=== PATIENT | female | born 1955 | race Caucasian/White ===

== ENCOUNTER 2022-11-10 18:44 | Outpatient (CLI) | payer MEDICARE, BC, SELFPAY | END 2022-11-10 18:45 | disposition home or self-care (01) | LOC: NFLDUCREF 11-12 11:20 | PROVIDERS: Visit Provider Nurse Practitioner Family | DX: R30.0 Dysuria (principal); N39.0 Urinary tract infection, site not specified | CPT/HCPCS: 87086; 87186 ==

== ENCOUNTER 2024-03-21 20:00 | Emergency (ER) | payer MEDICARE, BC, SELFPAY ==
[2024-03-21 20:09] VITALS: BP 166/81; PULSE 73; RESP 18; O2SAT 96; BMI 28.7
[2024-03-21 20:21] VITALS: TEMP 36.6
--- NOTE | 2024-03-21 20:29 | ED_ITS ---
HPI - General Adult General Chief complaint: Extremity Pain/Injury, Lower Stated complaint: Hip pain, nauseous throughout day Time Seen by Provider: 03/21/24 20:10 History of Present Illness HPI narrative: Here for an evaluation of chronic pain in her right leg. Started prednisone and albuterol for cancer that has spread to her left lung - started this 2- 3 weeks ago. Is wondering if these medications are causing an increase in pain in her leg . Increase in flair up of pain tonight, hard to bear weight. Has rheumatoid arthritis. 69-year-old woman presenting to the emergency department with concern right hip/leg pain. Pain is chronic in nature in her hips and low back however has flared more recently and particularly tonight. She has decreased her use of albuterol wondering if that might be related. Albuterol before for her allergic. She is wondering if that may have been contributing to spasms after researching this. She uses this regularly about 4 times a day 2 puffs; not taken for shortness of breath specifically. 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 Has received radiation here. Both legs were spasming but the left now less so which might correlate she thinks to using less albuterol. Left leg is still a problem. No trauma. No known metastatic disease to her bony pelvis or spine. Pain will spasm sometimes go down her buttock down the back of her thigh and feel it even in her toes. No rash. No fever. Denies a history of electrolyte instability. Does not take an NSAID lungs inner regularly dosed hydrochloroquine and then leflunomide for rheumatoid. Denies constipation or urinary retention. Related Data Home Medications ?Medication ?Instructions ?Recorded ?Confirmed atorvastatin 10 mg tablet 10 mg PO 11/10/22 03/14/23 hydrochlorothiazide 25 mg tablet 25 mg PO 11/10/22 03/14/23 hydroxychloroquine 200 mg tablet tab PO 11/10/22 03/14/23 leflunomide 10 mg tablet 10 mg PO 11/10/22 03/14/23 albuterol sulfate 90 mcg/actuation inhalation 03/21/24 aerosol inhaler (Ventolin HFA) Previous Rx's ?Medication ?Instructions ?Recorded cephalexin 500 mg capsule 500 mg PO BID #14 caps 03/14/23 Allergies Allergy/AdvReac Type Severity Reaction Status Date / Time No Known Drug Allergies Allergy Verified 03/21/24 20:17 Review of Systems Status of ROS: Reports: 6 or more systems reviewed and unremarkable except as noted in History and below [facility] Social History Smoking Status: Former smoker Exam Narrative: Exam Narrative: Very pleasant. Easily talkative. Breathing easily. Heart with trace systolic murmur loudest at the left sternal border. Abdomen is soft and nontender. Little overweight. Has no pain to palpation about the iliac crests or suprapubic area. No pain to palpation about the greater trochanter or femurs. She has trace pretibial pitting edema bilaterally. Well-perfused in her extremities. 2+ patellar reflex on the right and 1 on the left. No reproducible pain or deformity palpation of the spine no SI joint area pain. No piriformis area pain though she notes that she has hurt in that area on the right side before. No rashes apparent no swelling. Const: Vital Signs, click to edit/add: Vital Signs - 24 hr 03/21/24 20:09 03/21/24 20:21 Temperature 98 F Pulse Rate [Right Pulse Oximeter] 73 Respiratory Rate 18 Blood Pressure [Ri ght Upper Arm] 166/81 H Pulse Oximetry 96 Oxygen Delivery Me thod Room Air Documenting provider has reviewed patient's vital signs: yes Course Vital Signs Vital signs: Initial Vital Signs Pulse Rate 73 03/21/24 20:09 Pulse Rhythm Regular 03/21/24 20:09 Respiratory Rate 18 03/21/24 20:09 Blood Pressure 166/81 H 03/21/24 20:09 Blood Pressure Mean 109 H 03/21/24 20:09 Blood Pressure Position Sitting 03/21/24 20:09 Pulse Oximetry 96 03/21/24 20:09 Oxygen Delivery Method Room Air 03/21/24 20:09 Vital Signs Pulse Rate 73 03/21/24 20:09 Respiratory Rate 18 03/21/24 20:09 Blood Pressure 166/81 H 03/21/24 20:09 Pulse Oximetry 96 03/21/24 20:09 Oxygen Delivery Method Room Air 03/21/24 20:09 Temperature 98 F 03/21/24 20:21 Pulse Rate 73 03/21/24 20:09 Respiratory Rate 18 03/21/24 20:09 Blood Pressure 166/81 H 03/21/24 20:09 Pulse Oximetry 96 03/21/24 20:09 Oxygen Delivery Method Room Air 03/21/24 20:09 Medical Decision Making MDM Narrative Medical decision making narrative: I suppose this could be albuterol since she would note this correlation temporally. Discussed potential effect on electrolytes are glucose. She does take medications that might have hyponatremia though has been taking these for a long time. One also has concerns of course about metastatic disease and impingement somewhere other inflammatory reaction resulting in this muscle spasm. Kylee is clear that she feels she knows when something like that is an issue and does not feel like there would be any occult fracture or impingement. Her preference is to try to simply treat her discomfort as she has very close follow-up in regular monitoring including an upcoming total body scan. When she is aware of the differential and more significant concerns that we might have. We will try to treat her discomfort as requested. Discussed various options of medications and due to concerns and personal experiences with other family members we have finally settled on a cyclobenzaprine trial. Has an letterpress printing machinist that she might consult with as well. See patient discharge plan for further discussions. Discharge Plan Discharge Clinical Impression: Muscle spasm Patient Disposition: Home w/ Parent or Adult Condition: Improved Additional Instructions: Stay well-hydrated. I am that you have close follow-up. You might need to back off your albuterol and see if that makes a difference here. If not Flexeril/cyclobenzaprine is also available to you. Flexeril can be combined with any the medications that you are currently taking. Please follow-up with your primary care providers as scheduled. I still have concerns about some of the differential we discussed but you are quite familiar with yourself and your symptoms and I trust you to be paying close attention. Cyclobenzaprine from [facility]. It might be good to make a appointment with your care team or your primary care provider in short order particularly if you find this medication very helpful and just need a refill. Prescriptions: No Action hydroxychloroquine 200 mg tablet PO hydrochlorothiazide 25 mg tablet 25 mg PO atorvastatin 10 mg tablet 10 mg PO leflunomide 10 mg tablet 10 mg PO cephalexin 500 mg capsule 500 mg PO BID Qty: 14 0RF albuterol sulfate [Ventolin HFA] 90 mcg/actuation HFA aerosol inhaler inhalation Follow Up/Referrals: Margarita Cavazos [employer] [Nurse Practitioner] - Stand Alone Forms: [employer] Info Instructions
--- OUTSIDE RECORDS SUMMARY | 2024-03-21 21:19 | XMS_ITS | Clinical Summary ---
Author Organization [facility] Address [address] [place] [address] Care Team Providers Care Structural Designer Name Role Phone Sonia Schneider P.A.-C. Primary Care Provider Source Comments Patient records contain information from all sites at [facility]. For routine questions regarding patient records, call [phone] during business hours, M-F 8:00 AM - 5:00 PM Central Time. Record requests for emergency care only can be directed to [phone] at any time.[facility] Allergies No known active allergies Medications Medication Sig Dispensed Refills Start Date End Date Status polyvinyl alcohol (NU-TEARS) 1.4 % ophthalmic solution Administer 1 drop into both eyes 4 (four) times a day as needed for dry eyes. Active loratadine (CLARITIN) 10 mg tablet Take 10 mg by mouth daily as needed for allergies. Active multivitamin capsule Take 1 capsule by mouth daily. Active CHOLECALCIFEROL, VITAMIN D3, ORAL Take 3,000 Units by mouth daily. Active cranberry fruit extract (CRANBERRY CONCENTRATE ORAL) Take 2 tablets by mouth daily. Active acetaminophen (TYLENOL) 500 mg tablet Take 2 tablets (1,000 mg total) by mouth every 6 (six) hours as needed for pain. 01/23/2023 Active ibuprofen (ADVIL,MOTRIN) 200 mg tablet Take 2 tablets (400 mg total) by mouth every 6 (six) hours as needed for pain. 01/23/2023 Active oxyCODONE (ROXICODONE) 5 mg immediate release tabletIndications:Ac j carlos Pain Take 1 tablet (5 mg total) by mouth every 4 (four) hours as needed for severe pain or score 7-10 of 10 (not relieved by acetaminophen and ibuprofen) Indication: Acute Pain. 10 tablet 01/23/2023 Active Additional Information Patient not taking.Reported on 10/26/2023 sennosides-docusate sodium (SENOKOT-S) 8.6-50 mg per tablet Take 1 tablet by mouth at bedtime as needed for constipation. 01/23/2023 Active Additional Information Patient not taking.Reported on 01/25/2024 ondansetron ODT (ZOFRAN-ODT) 4 mg disintegrating tablet Dissolve 1 tablet (4 mg total) in the mouth every 6 (six) hours as needed for nausea or vomiting. 10 tablet 02/01/2023 Active Additional Information Patient not taking.Reported on 10/26/2023 hydroxychloroquine (PLAQUENIL) 200 mg tabletIndications:Ar thritis Rheumatoid (HCC) Take 1 tablet (200 mg total) by mouth 2 (two) times a day. 180 tablet 3 06/22/2023 Active omega-3 fatty acids-fish oil 300-1,000 mg per capsule Take 2 g by mouth daily. Active aspirin [address] tablet Take 81 mg by mouth daily. Active co-enzyme Q-10 30 mg capsule Take 30 mg by mouth daily. Active B complex-vitamins (BALANCE B-50) tablet Take 1 tablet by mouth daily. Active L.acidoph-L.bulg-B.b if-S.therm (BACID) 1 billion cell- 250 mg per tablet Take 1 tablet by mouth daily as needed. Active leflunomide (ARAVA) 10 mg tabletIndications:Ar thritis Rheumatoid (HCC) take one tablet by mouth every day 90 tablet 1 12/14/2023 Active atorvastatin (LIPITOR) 10 mg tabletIndications:Hy percholesterolemia TAKE ONE TABLET (10 MG TOTAL) BY MOUTH ONCE DAILY 90 tablet 3 12/30/2023 Active hydroCHLOROthiazide (HYDRODIURIL) 25 mg tabletIndications:Hy pertension And Chronic Kidney Disease Stage 2 Take 0.5 tablets (12.5 mg total) by mouth daily. 90 tablet 3 01/11/2024 Active predniSONE (DELTASONE) 5 mg tabletIndications:Ar thritis Rheumatoid (HCC) Take 20mg (4 tabs) orally x 3days, then 15mg (3 tabs) orally x3 days, then 10mg (2 tabs) orally x3 days, then 1 tab x3 days, then stop 30 tablet 1 02/01/2024 Active albuterol 90 mcg/actuation inhalerIndications:M alignant Neoplasm Of Ovary Laterality Unknown (HCC),Secondary Malignant Neoplasm Lung Left (HCC) Inhale 2 puffs every 4 (four) hours as needed for shortness of breath. 8 g 11 02/19/2024 Active Active Problems Problem Noted Date Diagnosed Date Osteoporosis 03/18/2024 Overview: DEXA of radius February 2024. Hyperparathyroidism Primary 01/23/2024 Overview: Endocrinology consult in 2008. Parathyroid adenoma diagnosed on parathyroid sestamibi scan. Hypercalcemia 01/19/2024 Malignant Neoplasm Of Ovary Laterality Unknown 0 07/09/2023 Obstruction Intestinal 01/29/2023 Lesion Vagina 12/17/2022 Overview: Added automatically from request for surgery [id number] Incontinence Urinary Stress Female 11/06/2022 Overview: Wears pads daily. Secondary Malignant Neoplasm Lung Left Overview: Added automatically from request for surgery [id number] Obesity Body Mass Index 30-39.9 Adult 02/06/2022 Tumor Kidney Not Pelvis Benign Right 05/11/2020 Overview: MEST tumor resection in 2019 via laparoscopic right partial nephrectomy. Hypertension And Chronic Kidney Disease Stage 2 07/15/2017 Stroke Cerebrovascular Accident Personal History 05/29/2015 Overview: Postoperative stroke in 2008. Fibromyalgia 03/09/2014 Overview: Stable. She will continue with foster care social worker and acupuncture. 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 Annual eye exam at [facility]. Resolved Problems Problem Noted Date Diagnosed Date Resolved Date Myelodysplastic Syndrome 12/16/202204/2023 Bone Marrow Transplant Failure 01/28/2022 02/06/2022 Mass Kidney 09/13/2019 05/11/2020 Overview: Added automatically from request for surgery [id number] Thrombocytopenia 06/06/2019 10/25/2019 Fatigue 06/06/2019 10/25/2019 Edema Lower Extremity 06/06/20192019 Ileus 12/01/2018 10/25/2019 Nausea And Vomiting 11/29/2018 10/25/19 20 Post Operative Nausea/Vomiting 11/29/2018 10/25/2019 Hypertension 04/01/2011 10/14/2018 Overview: Hypertension Malignant Neoplasm Of Ovary Laterality Unknown 04/01/2011 11/24/2022 Overview: Cancer of ovary left Neutropenia Drug Induced 01/18/2009 Encounters Date Type Department Care Team Description 03/10/2024 1:12 PM CDT - 03/10/2024 11:59 PM CDT Hospital Encounter Department of Radiology in [address] [phone] Sonia Schneider, MannieA.-C. Hyperparathyroidism Primary (HCC) Discharge Disposition: Home or Self Care 03/10/2024 1:10 PM CDT - 03/10/2024 1:11 PM CDT Hospital Encounter Department of Radiology in [place], [place] [address] [place] [phone] Sonia Schneider, P.A.-C. Hyperparathyroidism Primary (HCC) Discharge Disposition: Home or Self Care 02/19/2024 Clinical Communication Department of Radiation Oncology in [address] [phone] Julienne Bird APRN, C.N.P., D.N.P. 02/19/2024 Orders Only Department of Radiation Oncology in [place], [place] [address] [place] [phone] Julienne Bird APRN, C.N.P., D.N.P. Secondary Malignant Neoplasm Lung Left (HCC) (Primary Dx); Malignant Neoplasm Of Ovary Laterality Unknown (HCC) 02/12/2024 Orders Only Division of Hematology in [place], [place] [address] [place] [phone] Malik Fierro M.BXuanB.S. Malignant Neoplasm Of Ovary Left (HCC) (Primary Dx) 02/09/2024 Clinical Communication Division of Hematology in [place], [place] [address] [place] [phone] Malik Fierro M.BXuanB.S. Scheduling 02/02/2024 11:00 AM CDT - 02/02/2024 1:08 PM CDT Hospital Encounter Department of Radiation Oncology in [place], [place] [address] [place] [phone] Anabel Medeiros M.D., Ph.D. Malignant Neoplasm Of Ovary Left (HCC) (Primary Dx); Secondary Malignant Neoplasm Lung Left (HCC) 02/02/2024 10:20 AM CDT Office Visit Department of Oncology in [address] [phone] Shobha Greene APRN, C.N.Sebastian., M.S.N. Malignant Neoplasm Of Ovary Laterality Unknown (HCC) (Primary Dx) 02/02/2024 Orders Only Division of Hematology in [place], [place] [address] [place] [phone] Malik Fierro M.B.B.S. Myelodysplastic Syndrome (HCC) (Primary Dx) 02/01/2024 11:15 AM CDT Telemedicine Division of Rheumatology in [place], [place] [address] [place] [phone] Ludmila Glaser APRN, C.N.P., M.S. Medication Therapy Estimator Printing Not Anticoagulant (Primary Dx); Arthritis Rheumatoid (HCC) 01/29/2024 1:52 PM CDT - 01/29/2024 11:59 PM CDT Hospital Encounter Department of Radiology, [facility], in [place], [place] [address] [place] [phone] Shobha Greene APRN C.N.P., M.S.N. Malignant Neoplasm Of Ovary Laterality Unknown (HCC) Discharge Disposition: Home or Self Care 01/25/2024 11:45 AM CDT Clinical Communication Virtual Review in [place], [place] [address] [place] [phone] 01/15/2024 Clinical Communication Division of Rheumatology in [place], [place] [address] [place] [phone] Eli Chua R.N. Lab Monitoring 01/14/2024 10:20 AM CDT - 01/14/2024 11:59 PM CDT Hospital Encounter Department of Laboratory Medicine in [address] [phone] Ludmila Glaser APRN C.N.P., M.S. Arthritis Rheumatoid (HCC); Medication Therapy [facility] Not Anticoagulant; Deficiency Vitamin D; Deficiency Vitamin B12; Hypercholesterolemia; Hypertension And Chronic Kidney Disease Stage 2 Discharge Disposition: Home or Self Care 01/10/2024 Refill Department of Community Internal Medicine in [address] [phone] Sonia Schneider P.A.-C. Med Refill 01/07/2024 1:00 PM CDT Telemedicine Department of Family Medicine, [facility], in [address] [phone] Denise Gonzalez P.A.-C., P.A. Pain Back Lumbar (Primary Dx); Symptom Urinary 01/07/2024 11:50 AM CDT - 01/07/2024 11:59 PM CDT Hospital Encounter Department of Laboratory Medicine in [address] [phone] Denise Gonzalez P.A.-C., P.A. Symptom Urinary Discharge Disposition: Home or Self Care 01/07/2024 Nurse Triage Department of Community Internal Medicine in [place], [place] [address] [place] [address] Paige Ruiz R.N. Back Pain 12/30/2023 Refill Department of Community Internal Medicine in [place], [place] [address] [place] [address] Sonia Schneider P.A.-C. Med Refill from Last 3 Months Immunizations Name Administration Dates Next Due Influenza, Injectable, Quadrivalent 09/25/2015 Influenza, Unspecified 08/26/2016,09/25/2015 PPSV23 11/23/2023(Deferred: Patient dec ision) RZV (SHINGRIX) 11/23/2023(Deferred: Patient dec ision) SARS-COV-2 (COVID-19) - PFIZ ER (Discontinued)(12 years or older) 11/23/2023(Deferred: Patient decision),12/10/2021 Td (Adult), adsorbed 11/23/2023(Deferred: Patien t decision) Tdap 11/09/2008 Zoster, Unspecified 11/23/2023(Deferred: Other) Family History Medical History Relation Name Comments Hyperlipidemia Brother Rachid Luc Anxiety disorder Daughter Shilpa Obesity Daughter Shilpa Hyperlipidemia Father Keo Chavez Lung cancer Father Keo Chavez stage 4/93 yrs old Colon cancer Father's Brother Cj Chavez Parkinsonism Father's Sister 1 Jennifer De La Rosa Parkinsonism Father's Sister 2 Meg Briceno Parkinsonism Father's Sister 3 Jessica Diallo Anxiety disorder Mother Alexa Lucking Depression Mother Alexa Lucking Hypertension Mother Alexa Lucking Obesity Mother Alexa Lucking Anxiety disorder Sister 1 Paige Roehl Depression Sister 1 Paige Roehl Hyperlipidemia Sister 1 Paige Roehl Hypertension Sister 1 Paige Roehl Obesity Sister 1 Paige Roehl Asthma Sister 2 Radha Lucking Colon polyps Sister 2 Radha Lucking Depression Sister 2 Radha Lucking Hyperlipidemia Sister 2 Radha Lucking Anxiety disorder Sister 3 Andie Lucking Asthma Sister 3 Andie Lucking Depression Sister 3 Andie Lucking Learning disorder Sister 3 Andie Lucking Developmen tally Disabled Obesity Sister 3 Andie Lucking Other cancer Sister 3 Andie Chavez esophogus stage 4 and Black's esophagus Sister 4 Tisha Chaves Colon polyps Sister 4 Tisha Chaves Crohn disease Sister 4 Tisha Chaves Depression Sister 4 Tisha Chaves Obesity Sister 4 Tisha Chaves Ulcerative colitis Sister 4 Tisha Chaves Brain Tumor Sister 5 Margarita Wong benign Depression Sister 5 Margarita Wong Anxiety disorder Son 1 Clint Back problem Son 1 Clint Prediabetes Son 1 Clint Anxiety disorder Son 2 Hieu Hypertension Son 2 Hieu Colon cancer Uncle Paternal Relation Name Status Comments Brother Rachid Chavez Alive Daughter Shilpa Alive Father Keo Chavez Father's Brother Cj Chavez Father's Sister 1 Jennifer De La Rosa Father's Sister 2 Meg Briceno Father's Sister 3 Jessica Diallo Mother Alexa Chavez Sister 1 Paige Roehl Alive Sister 2 Radha Lucking Alive Sister 3 Andie Lucking Sister 4 Tisha Chaves Alive Sister 5 Margarita Wong Alive Son 1 Clint Alive Son 2 Hieu Alive Uncle Paternal Social History Tobacco Use Types Packs/Day Years Used Date Smoking Tobacco: Former Cigarettes 1 32.3 0 10/12/1969 - 2002 Smokeless Tobacco: Never Tobacco Cessation:Counseling Given: Not Answered Alcohol Use Standard Drinks/Week Comments No 0 (1 standard drink = 0.6 oz pur e alcohol) [facility] Utilities Answer Date Recorded In the past 12 months has [facility] [employer], gas, oil, or water [employer] threatened to shut off services in your home? No 01/26/2024 Humiliation, Afraid, Rape, and Kick questionnair e Answer Date Recorded Within the last year, have y ou been afraid of your partner or ex-partner? No 11/06/2022 Within the last year, have y ou been humiliated or emotionally abused in other ways by your partner or ex-partner? No Within the last year, have y ou been kicked, hit, slapped, or otherwise physically hurt by your partner or ex-partner? No 11/06/2022 Within the last year, have y ou been raped or forced to have any kind of sexual activity by your partner or ex-partner? No 11/06/2022 Social Connection and Isolat ion Panel [NHANES] Answer Date Recorded In a typical week, how many times do you talk on the phone with family, friends, or neighbors? More than three times a week 11/06/2022 How often do you get togethe r with friends or relatives? Once a week 11/06/2022 How often do you attend chur ch or moravian services? Never 11/06/2022 Do you belong to any clubs o r organizations such as judaism groups, unions, fraternal or athletic groups, or school groups? No 11/06/2022 How often do you attend meet ings of the clubs or organizations you belong to? Patient declined 11/06/2022 Are you , , di vorced, , never , or living with a partner? 11/06/2022 AUDIT-C Answer Date Recorded Q1: How often do you have a drink containing alc ohol? Never 11/06/2022 Average Number of Drinks Not on file 023 Frequency of Binge Drinking Not on file 10/13 Overall Financial Resource Strain (CARDIA) Answe r Date Recorded How hard is it for you to pa y for the very basics like food, housing, medical care, and heating? Not very hard 11/06/2022 PHQ-2 Answer Date Recorded PHQ-2 Score 0 11/17/2023 [facility] of Occupat ional [facility] - Occupational Stress Questionnaire Answer Date Recorded Do you feel stress - tense, restless, nervous, or anxious, or unable to sleep at night because your mind is troubled all the time - these days? Only a little 11/06/2022 Exercise Vital Sign Answer Date Recorde d On average, how many days pe r week do you engage in moderate to strenuous exercise (like a brisk walk)? 3 days 11/17/2023 On average, how many minutes do you engage in exercise at this level? 30 min 11/17/2023 Hunger Vital Sign Answer Date Recorded Within the past 12 months, y ou worried that your food would run out before you got the money to buy more. Never true 01/26/20 24 Within the past 12 months, t he food you bought just didn't last and you didn't have money to get more. Never true 01/26/2024 PRAPARE - Transportation Answer Date Re corded In the past 12 months, has l ack of transportation kept you from medical appointments or from getting medications? No 01/10 In the past 12 months, has l ack of transportation kept you from meetings, work, or from getting things needed for daily living? No 01/26/2024 Nutrition Answer Date Recorded Nutrition: EVOO Fat Source Yes 11/17 On average, how many serving s of fruits and vegetables do you eat per day (serving size is equal to 1 cup or approximately the size of a tennis ball)? 5 or more 11/17/2023 Dental Answer Date Recorded Dental: Regular Dentist Yes 07/01/20 Employment Answer Date Recorded Employment status Retired 11/17/2023 Housing Stability Answer Date Recorded What is your living situation today? I have a [facility] place to live 01/26/2024 Education Answer Date Recorded What is the highest level of school you have completed or the highest degree you have received? Some college, no degree 11/06/2022 Sex and Gender Information Value Date Recorded Sex Assigned at Female 08/02/2018 5:05 PM CDT Gender Identity Not on file Sexual Orientation Straight 08/02/2018 5: 05 PM CDT Last Filed Vital Signs Vital Sign Reading Time Taken Comments Blood Pressure 170/81 02/02/2024 10:40 AM CDT Pulse 81 02/02/2024 10:40 AM CDT Temperature 36.3 ??C (97.3 ??F) 02/02/2024 10:40 AM C DT Respiratory Rate 12 11/23/2023 10:02 AM FOOD ORDER DELIVERY RUNNER Oxygen Saturation 94% 02/02/2024 10:40 AM CDT Inhaled Oxygen Concentration - - Weight 85 kg (187 lb 6.3 oz) 02/02/2024 11:34 AM CDT Height 163.6 cm (5' 4.41) 02/02/2024 10:40 AM C DT Body Mass Index 31.76 02/02/2024 10:40 AM CDT Plan of Treatment Upcoming Encounters Date Type Department Care Team (Late st Contact Info) Description 04/05/2024 10:30 AM CDT Appointment Department of Laboratory Medicine in [place] [address] [place] [address] Malik Fierro M.B.B.S. [address] [place] [phone] 04/07/2024 10:30 AM CDT Clinical Communication Virtual Review in [place], [place] [address] [place] [phone] 04/11/2024 9:00 AM CDT Telemedicine Division of Hematology in [place], [place] [address] [place] [phone] Malik Fierro M.B.B.S. [address] [place] [phone] 04/21/2024 1:30 PM CDT Appointment Department of Laboratory Medicine in [address] [phone] Ludmila Glaser APRN, C.N.P., M.S. [address] [place] [phone] 05/02/2024 10:45 AM CDT Clinical Communication Virtual Review in [place], [place] [address] [place] [phone] 05/04/2024 8:15 AM CDT Appointment Department of Radiology, [facility], in [address] [phone] Shobha Greene APRN, C.N.P., M.S.N. [address] [place] [phone] 05/04/2024 3:20 PM CDT Office Visit Department of Oncology in [place], [place] [address] [place] [phone] Shobha Greene APRN, C.N.P., M.S.N. [address] [place] [phone] 05/05/2024 9:00 AM CDT Appointment Department of Radiation Oncology in [place], [place] [address] [place] [phone] Anabel Medeiros M.D., Ph.D. [address] [place] [address] Health Maintenance Due Date Last Done Comments CT Colonography 1955 Cologuard 1955 Zoster Vaccines (1 of 2) 1974 Hydroxychloroquine (PLAQUENI L) Annual Exam 03/19/2024 Influenza Vaccine (#1) 2024 6, 09/25/2015, 09/25/2015 Postponed from 07/12/2023 (Patient Refused) Mammogram 04/15/2024 04/15/2023, 02/06/2022, 12/18/2020, Additional history exists Office Visit for Blood Press ure Check / Re-check 05/03/2024 02/02/2024 COVID-19 Vaccine (4 - 2022-2 4 season) 2024 12/10/2021, 05/31/2021, 05/10/2021 Postponed from 06/12/2023 (Patient Refused) DTaP,Tdap,and Td Vaccines (2 - Td or Tdap) 11/23/2024 11/09/2008 Postponed from 11/09/2018 (Patient Refused) Pneumococcal vaccine (65+ years) (1 of 2 - PCV) 11/23/2024 Postponed from 1961 (Patient Refused) Visit: Chronic Disease, age 18+ 11/23/2024 4 Visit: Medicare Annual Wellness 11/24/2024 4 Colonoscopy 11/25/2024 11/25/2022, 08/03/2017, 08/30/2013, Additional history exists Colorectal Cancer Surveillance 11/25/2024 Creatinine Level (Kidney Function Test) 01/13/2025 01/14/2024, 10/15/2023, 07/14/2023, Additional history exists Potassium Level 01/13/2025 01/14/2024, 01/30/2023, 01/30/2023, Additional history exists Sodium Level 01/13/2025 01/14/2024, 01/30/2023, 01/30/2023, Additional history exists Fasting Glucose for Diabetes Screening 01/13/2027 01/14/2024, 01/30/2023, 01/30/2023, Additional history exists Lipid (Cholesterol) Screening 01/13/2029, 04/21/2022, 02/06/2022, Additional history exists Hepatitis C Screening Completed 02/17/2013 Depression Screening (Annual PHQ-2) Completed 11/23/2023, 11/17/2023 Fall Risk Screen (Annual) Completed 11/23/2023 HPV Vaccines Aged Out No longer eligi ble based on patient's age to complete this topic Medical Devices Implanted Type Area Athlete Manager Device Identifier Shelf Expiration Date Model / Serial / Lot Clp Hrzn Ti 6 Clp Md-Lg Grn - [id number] Implanted:Qty : 1 on 11/24/2018 by Jose Daniel Rodriguez M.D. at [facility] Hardware e.g. pins/screws/ rods Weck (Div of [employer]) [id number] / / Clp Hrzn Ti 6 Clp Md-Lg Grn - [id number] Implanted:Qty : 1 on 11/24/2018 by Jose Daniel Rodriguez M.D. at [facility] Hardware e.g. pins/screws/ rods Weck (Div of [employer]) [id number] 11/19/2022 3200 / / [id number] Clp Hrzn Ti 6 Clp Md-Lg Grn - [id number] Implanted:Qty : 1 on 11/24/2018 by Jose Daniel Rodriguez M.D. at [facility] Hardware e.g. pins/screws/ rods Weck (Div of [employer]et[employer]) [id number] 03/21/2023 3200 / / [id number] Clp Hrzn Ti 6 Clp Md Sam - [id number] Implanted:Qty : 1 on 11/24/2018 by Jose Daniel Rodriguez M.D. at [facility] Hardware e.g. pins/screws/ rods [employer] [id number] / / Clp Hrzn Ti 6 Clp Sm Red - [id number] Implanted:Qty : 1 on 11/24/2018 by Jose Daniel Rodriguez M.D. at [facility] Hardware e.g. pins/screws/ rods Weck (Div of [employer]) [id number] / / Clp Hmol Plmr Md - [id number] Implanted:Qty : 1 on 12/06/2019 by Bola Villa M.D. at [facility] Hardware e.g. pins/screws/ rods [employer] [id number] 12/28/2023 [id number] / / [id number] Clp Hmol Plmr Md - [id number] Implanted:Qty : 1 on 12/06/2019 by Bola Villa M.D. at [facility] Hardware e.g. pins/screws/ rods [employer] [id number] 02/02/2024 [id number] / / [id number] Clp Hmol Plmr Md - [id number] Implanted:Qty : 1 on 12/06/2019 by Bola Villa M.D. at [facility] Hardware e.g. pins/screws/ rods [employer] [id number] 04/04/2024 [id number] / / [id number] Clp Lpr Abs Sut - [id number] Implanted:Qty : 1 on 12/06/2019 by Bola Villa M.D. at [facility] Hardware e.g. pins/screws/ rods [employer] [id number] 01/09/2022 XC200 / / [id number] Clp Hmol Plmr Md - [id number] Implanted:Qty : 1 on 12/06/2019 by Bola Villa M.D. at [facility] Hardware e.g. pins/screws/ rods [employer] [id number] 04/04/2024 [id number] / / [id number] Clp Lpr Abs Sut - [id number] Implanted:Qty : 1 on 12/06/2019 by Bola Villa M.D. at [facility] Hardware e.g. pins/screws/ rods [employer] [id number] 05/11/2022 XC200 / / [id number] Clp Lpr Abs Sut - [id number] Implanted:Qty : 1 on 12/06/2019 by Bola Villa M.D. at [facility] Hardware e.g. pins/screws/ rods [employer] [id number] 05/11/2022 XC200 / / [id number] Stnt Uret Cls Tp Dbl 7fx24 - [id number] Implanted:Qty : 1 on 11/24/2018 by Jose Daniel Rodriguez M.D. at [facility] Ureteral Stent [facility] Agnieszka [id number] / / [id number] Procedures Procedure Name Priority Date/Time Associated Diagnosis Comments BMD BONE DENSITY SPINE HIPS RAD - Routine (most inpatients and all outpatients) 03/10/2024 1:50 PM CDT Hyperparathyroidis m Primary (HCC) BMD BONE DENSITY RADIUS RAD - Routine (most inpatients and all outpatients) 03/10/2024 1:48 PM CDT Hyperparathyroidis m Primary (HCC) CT CHEST WITH IV CONTRAST RAD - Routine (most inpatients and all outpatients) 01/29/2024 2:48 PM CDT Malignant Neoplasm Of Ovary Laterality Unknown (HCC) CT ABDOMEN PELVIS WITH IV CONTRAST RAD - Routine (most inpatients and all outpatients) 01/29/2024 2:48 PM CDT Malignant Neoplasm Of Ovary Laterality Unknown (HCC) VITAMIN D, IMMUNOASSAY, TOTAL, S Routine 01/14/2024 10:35 AM CDT BASIC METABOLIC PANEL, S/P Routine 01/14/2024 10:35 AM CDT Hypertension And Chronic Kidney Disease Stage 2 LIPID PANEL, S Routine 01/14/2024 10:35 AM CDT Hypercholesterolem ia VITAMIN B12 ASSAY, S Routine 01/14/2024 10:35 AM CDT Deficiency Vitamin B12 ALANINE AMINOTRANSFERASE (ALT), S/P Routine 01/14/2024 10:35 AM CDT Medication Therapy [facility] Not Anticoagulant ASPARTATE AMINOTRANSFERASE (AST), S/P Routine 01/14/2024 10:35 AM CDT Medication Therapy [employer] Not Anticoagulant CBC WITH DIFFERENTIAL, B Routine 01/14/2024 10:35 AM CDT Medication Therapy [facility] Not Anticoagulant C-REACTIVE PROTEIN (CRP), S/P Routine 01/14/2024 10:35 AM CDT Arthritis Rheumatoid (HCC) SEDIMENTATION RATE, B Routine 01/14/2024 10:35 AM CDT Arthritis Rheumatoid (HCC) TN URINALYSIS AUTO W MICRO Routine 01/07/2024 11:58 AM CDT URINALYSIS WITH MICROSCOPIC IF INDICATED, U Routine 01/07/2024 11:58 AM CDT Symptom Urinary BI BREAST SCREENING BILATERAL WITH TOMOSYNTHESIS RAD - Routine (most inpatients and all outpatients) 04/15/2023 11:41 AM CDT Screening Mammogram Breast Cancer COLONOSCOPY Routine 08/03/2017 CHRONIC VIRAL HEPATITIS PROFILE Routine 02/17/2013 8:48 AM CDT from Last 3 Months or Most Recently Relevant to Health Maintenance Results * BMD Bone Density Spine Hips (03/10/2024 1:50 PM CDT) Anatomical Region Laterality Modality Hip, Lumbar Spine, Nuclear M edicine RST LOS, Musculoskeletal ARZ LOS, Muskuloskeletal FLA LOS N/A Radio graphic Imaging Impressions 03/10/2024 2:48 PM CDT Low bone density (Osteopenia) AP Spine (region: L1-L4 (L3)) Low bone density (Osteopenia) DualFemur (region: Total Left) Low bone density (Osteopenia) DualFemur (region: Total Right) Narrative 03/10/2024 2:48 PM CDT EXAM: ??BMD BONE DENSITY SPINE HIPS Bone Mineral Density (BMD) analysis performed on Imonomi with serial number [id number]. COMPARISON: Serial Comparisons Left Total Hip results: Exam Date ? BMD ? T-score ? 09/24/2006 ?1.157 g/cm2 ?? 1.2 ? 06/27/2015 ? 0.966 g/cm2 ?? -0.3 ? 03/10/2024 ? 0.794 g/cm2 ?? -1.7 ? Change vs. Previous (difference): -0.172 g/cm2 *Change vs. Previous (%): -17.8 % The absolute BMD change from previous, -0.172 g/cm2, is greater than least significant change: Yes The absolute BMD change from baseline, -0.363 g/cm2, is greater than least significant change: Yes Right Total Hip results: Exam Date ? BMD ? T-score ? 09/24/2006 ?1.215 g/cm2 ?? 1.6 ? 06/27/2015 ? 0.955 g/cm2 ?? -0.4 ? 03/10/2024 ? 0.794 g/cm2 ?? -1.7 ? Change vs. Previous (difference): -0.161 g/cm2 *Change vs. Previous (%): -16.9 % The absolute BMD change from previous, -0.161 g/cm2, is greater than least significant change: Yes The absolute BMD change from baseline, -0.421 g/cm2, is greater than least significant change: Yes Combined Total Hip results: Exam Date ? BMD ? T-score ? 09/24/2006 ?1.186 g/cm2 ?? 1.4 ? 06/27/2015 ? 0.960 g/cm2 ?? -0.4 ? 03/10/2024 ? 0.794 g/cm2 ?? -1.7 ? Change vs. Previous (difference): -0.166 g/cm2 *Change vs. Previous (%): -17.3 % The absolute BMD change from previous, -0.166 g/cm2, is greater than least significant change: Yes The absolute BMD change from baseline, -0.392 g/cm2, is greater than least significant change: Yes Spine results: Exam Date ? BMD ? T-score ? 09/24/2006 ?1.102 g/cm2 ?? -0.7 ? 06/27/2015 ? 0.976 g/cm2 ?? -1.7 ? 03/10/2024 ? 0.973 g/cm2 ?? -1.7 ? Change vs. Previous (difference): -0.003 g/cm2 Change vs. Previous (%): -0.3 % The absolute BMD change from previous, -0.003 g/cm2, is greater than the least significant change: No The absolute BMD change from baseline, -0.129 g/cm2, is greater than the least significant change: Yes ----- FINDINGS: Left Hip: Femur Neck: BMD = 0.891 g/cm2 T-score = -1.1 ?Z-score = 0.6 Total Hip: BMD = 0.794 g/cm2 T-score = -1.7 ?Z-score = -0.3 Right Hip: Femur Neck: BMD = 0.821 g/cm2 T-score = -1.6 ?? Z-score = 0.1 Total Hip: BMD = 0.794 g/cm2 T-score = -1.7 ?Z-score = -0.3 Lumbar Spine: L1: BMD = 0.878 g/cm2 L2: BMD = 0.999 g/cm2 L3: BMD = 1.094 g/cm2 L4: BMD = 1.028 g/cm2 Total Lumbar Spine (L1-L4 (L3)): BMD = 0.973 g/cm2 T-score = -1.7 ?Z-score = -0.1 Trabecular Bone Score: ??L1-L4 (L3): TBS = 1.237 < 1.23: low 1.23 -1.31: borderline ?? > 1.31: normal ? A low TBS has been associated with increased risk of fractures in certain populations. TBS should not be used alone to determine treatment recommendations. It can be used in conjunction with BMD and FRAX to inform management. Please note: A more comprehensive DXA report, including images and graphs, is available in [employer]. In the absence of other causes of low BMD or demonstrated skeletal fragility, osteoporosis may be diagnosed in post-menopausal women and men at or above age 50 when the T-score is at or below -2.5 as defined by the WHO. Low bone density is present at T-scores between -1 and -2.5. The diagnosis in pre-menopausal women and men < age 50 can be based on low bone density or evidence of skeletal fragility in the appropriate clinical setting. Based on the bone density results, and on the patient's answers to the Fracture Risk Assessment questionnaire (please refer to appropriate image stored in the BMD study in [employer]), the calculated ten year probability of fracture is: FRAX Risk Factors: Rheumatoid Arthritis FRAX (10 yr probability) adjusted for TBS: Major Osteoporotic Fracture: ??13.3 % Hip Fracture: ?2.1 % ?? Procedure Note Rachid Florez M.D. - 05/30/2024 EXAM: BMD BONE DENSITY SPINE HIPS Bone Mineral Density (BMD) analysis performed on [employer] withserial number [id number]. COMPARISON: Serial Comparisons Left Total Hip results: Exam Date BMD T-score 09/24/2006 1.157 g/cm2 1.2 06/27/2015 0.966 g/cm2 -0.3 03/10/2024 0.794 g/cm2 -1.7 Change vs. Previous (difference): -0.172 g/cm2 *Change vs. Previous (%): -17.8 % The absolute BMD change from previous, -0.172 g/cm2, is greater than least significant change: Yes The absolute BMD change from baseline, -0.363 g/cm2, is greater than least significant change: Yes Right Total Hip results: Exam Date BMD T-score 09/24/2006 1.215 g/cm2 1.6 06/27/2015 0.955 g/cm2 -0.4 03/10/2024 0.794 g/cm2 -1.7 Change vs. Previous (difference): -0.161 g/cm2 *Change vs. Previous (%): -16.9 % The absolute BMD change from previous, -0.161 g/cm2, is greater than least significant change: Yes The absolute BMD change from baseline, -0.421 g/cm2, is greater than least significant change: Yes Combined Total Hip results: Exam Date BMD T-score 09/24/2006 1.186 g/cm2 1.4 06/27/2015 0.960 g/cm2 -0.4 03/10/2024 0.794 g/cm2 -1.7 Change vs. Previous (difference): -0.166 g/cm2 *Change vs. Previous (%): -17.3 % The absolute BMD change from previous, -0.166 g/cm2, is greater than least significant change: Yes The absolute BMD change from baseline, -0.392 g/cm2, is greater than least significant change: Yes Spine results: Exam Date BMD T-score 09/24/2006 1.102 g/cm2 -0.7 06/27/2015 0.976 g/cm2 -1.7 03/10/2024 0.973 g/cm2 -1.7 Change vs. Previous (difference): -0.003 g/cm2 Change vs. Previous (%): -0.3 % The absolute BMD change from previous, -0.003 g/cm2, is greater than the least significant change: No The absolute BMD change from baseline, -0.129 g/cm2, is greater than the least significant change: Yes ----- FINDINGS: Left Hip: Femur Neck: BMD = 0.891 g/cm2 T-score = -1.1 Z-score = 0.6 Total Hip: BMD = 0.794 g/cm2 T-score = -1.7 Z-score = -0.3 Right Hip: Femur Neck: BMD = 0.821 g/cm2 T-score = -1.6 Z-score = 0.1 Total Hip: BMD = 0.794 g/cm2 T-score = -1.7 Z-score = -0.3 Lumbar Spine: L1: BMD = 0.878 g/cm2 L2: BMD = 0.999 g/cm2 L3: BMD = 1.094 g/cm2 L4: BMD = 1.028 g/cm2 Total Lumbar Spine (L1-L4 (L3)): BMD = 0.973 g/cm2 T-score = -1.7 Z-score = -0.1 Trabecular Bone Score: L1-L4 (L3): TBS = 1.237 < 1.23: low 1.23 -1.31: borderline > 1.31: normal A low TBS has been associated with increased risk of fractures in certainpopulations. TBS should not be used alone to determine treatmentrecommendations. It can be used in conjunction with BMD and FRAX to informmanagement. Please note: A more comprehensive DXA report, including images and graphs,is available in [employer]. In the absence of other causes of low BMD or demonstrated skeletalfragility, osteoporosis may be diagnosed in post-menopausal women and menat or above age 50 when the T-score is at or below -2.5 as defined by theWHO. Low bone density is present at T-scores between -1 and -2.5. The diagnosis in pre-menopausal women andmen < age 50 can be based on low bone density or evidence of skeletalfragility in the appropriate clinical setting. Based on the bone density results, and on the patient's answers to theFracture Risk Assessment questionnaire (please refer to appropriate imagestored in the BMD study in [employer]), the calculated ten year probability offracture is: FRAX Risk Factors: Rheumatoid Arthritis FRAX (10 yr probability) adjusted for TBS: Major Osteoporotic Fracture: 13.3 % Hip Fracture: 2.1 % IMPRESSION: Low bone density (Osteopenia) AP Spine (region: L1-L4 (L3)) Low bone density (Osteopenia) DualFemur (region: Total Left) Low bone density (Osteopenia) DualFemur (region: Total Right) Sonia Schneider P.A.-C. Elle DXA PROCEDU RES * BMD Bone Density Radius (03/10/2024 1:48 PM CDT) Anatomical Region Laterality Modality Forearm, Wrist, Nuclear Medi cine RST LOS, Musculoskeletal ARZ LOS, Muskuloskeletal FLA LOS N/A Radio graphic Imaging Impressions 03/10/2024 2:47 PM CDT Osteoporosis Left Forearm (region: Radius 33%) Narrative 03/10/2024 2:47 PM CDT EXAM: ??BMD BONE DENSITY RADIUS Bone Mineral Density (BMD) analysis performed on [employer] with serial number [id number]. ? FINDINGS: Left Radius: 1/3 Radius: BMD = 0.661 g/cm2 T-score = -2.6 ?Z-score = -0.8 Please note: A more comprehensive DXA report, including images and graphs, is available in [employer]. ?In the absence of other causes of low BMD or demonstrated skeletal ?fragility, osteoporosis may be diagnosed in post-menopausal ?women when the T-score is at or below -2.5 as defined by ?the WHO. Low bone density is present at T-scores between -1 and -2.5 and ?normal BMD when T-score is at or above -1.0. The diagnosis in ?pre-menopausal women and men can be based on low bone mass or ?evidence of skeletal fragility in the appropriate clinical setting. Procedure Note Santi Wilkins M.D. - 03/10/2024 EXAM: BMD BONE DENSITY RADIUS Bone Mineral Density (BMD) analysis performed on [employer] withserial number [id number]. FINDINGS: Left Radius: 10/14 Radius: BMD = 0.661 g/cm2 T-score = -2.6 Z-score = -0.8 Please note: A more comprehensive DXA report, including images and graphs,is available in [employer]. In the absence of other causes of low BMD or demonstrated skeletal fragility, osteoporosis may be diagnosed in post-menopausal women when the T-score is at or below -2.5 as defined by the WHO. Low bone density is present at T-scores between -1 and -2.5and normal BMD when T-score is at or above -1.0. The diagnosis in pre-menopausal women and men can be based on low bone mass or evidence of skeletal fragility in the appropriate clinical setting. IMPRESSION: Osteoporosis Left Forearm (region: Radius 33%) Sonia Schneider P.A.-C. [facility] [place] DXA PROCEDU RES * CT Abdomen Pelvis with IV Contrast (01/29/2024 2:48 PM CDT) Anatomical Region Laterality Modality Abdomen, Pelvis, Abdominal R ST LOS, Abdominal ARZ LOS, Abdominal FLA LOS N/A Computed Tomograp hy, Computed Tomography 01/29/2024 2:43 PM CDT Impressions 01/29/2024 3:45 PM CDT Nothing for recurrent or metastatic disease in abdomen and pelvis. Narrative 01/29/2024 3:45 PM CDT EXAM: ??CT ABDOMEN PELVIS WITH IV CONTRAST COMPARISON: ??10/30/2023 FINDINGS: ??Postoperative changes hysterectomy, bilateral oophorectomies, and upper vaginectomy. Right partial nephrectomy. No ascites. No lymphadenopathy. No peritoneal nodularity. No suspicious hepatic lesions. Stable 1.5 cm left adrenal adenoma. Colonic diverticulosis. The remainder of the examination is either unchanged or negative. This examination was performed in conjunction with a CT of the chest, which will be reported separately. Procedure Note Jewel Carey Jr., M.D., M.H.A. - 01/29/2024 EXAM: CT ABDOMEN PELVIS WITH IV CONTRAST COMPARISON: 10/30/2023 FINDINGS: Postoperative changes hysterectomy, bilateral oophorectomies,and upper vaginectomy. Right partial nephrectomy. No ascites. Nolymphadenopathy. No peritoneal nodularity. No suspicious hepatic lesions.Stable 1.5 cm left adrenal adenoma. Colonic diverticulosis. The remainder of the examination is eitherunchanged or negative. This examination was performed in conjunction witha CT of the chest, which will be reported separately. IMPRESSION: Nothing for recurrent or metastatic disease in abdomen and pelvis. Shobha Greene APRN C.N.Mannie, M.S.N. IM G CT PROCEDURES * CT Chest with IV Contrast (01/29/2024 2:48 PM CDT) Anatomical Region Laterality Modality Chest, Thoracic RST LOS, Tho racic ARZ LOS, Thoracic ARZ LOS, Thoracic FLA LOS N/A Computed Tomography, Compute d Tomography 01/29/2024 2:44 PM CDT Impressions 01/29/2024 4:28 PM CDT 1. Enlarging pulmonary nodule in the right middle lobe concerning for a metastasis. 2. 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 3. No change in size of small lower neck and chest lymph nodes since 10/30/2023. 4. A small nodule in the left lower lobe that was new on the prior study has resolved. 5. Infectious/inflammatory groundglass opacities in the right upper lobe on the prior study have also resolved. Narrative 01/29/2024 4:28 PM CDT EXAM: CT CHEST WITH IV CONTRAST COMPARISON: CT chest 10/30/2023, 06/11/2023, and 11/13/2022. FINDINGS: Previous left upper lobe wedge resection with recurrence along the staple margin and interval radiation therapy completed 07/28/2023. There is increased consolidation surrounding the staple line in the left upper lobe, which now obscures the treated nodule. Associated occlusion of the bronchi (3/232, 244, and 259). 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 A 5 mm nodule in the posterior right middle lobe (3/360; annotated screen capture provided) has increased in size from 2 mm on 10/30/2023 and is new since 11/13/2022. This is concerning for metastasis. A 3 mm nodule in the lateral left lower lobe that was new on the prior exam has resolved. Prior clustered groundglass nodules in the right apex have also resolved. Right apical scarring. Several small pulmonary nodules remain unchanged, for example in the central right upper lobe (3/155), posterior right upper lobe (174), and two nodules along the major fissure in the right upper lobe (3/234). AP window and prevascular lymph nodes (circa 3/144) are stable since 10/30/2023. Unchanged 8 mm right paratracheal node (3/146) and low left paratracheal lymph nodes. Stable 6 to 7 mm left supraclavicular lymph node (3/34). Stable right retroclavicular node measuring 6 mm (7/11). Unchanged 4-5 mm left internal mammary node (7/41). Small thyroid nodules. Coronary artery calcification. Mosaic attenuation in the lungs indicating small airways disease. No suspicious osseous lesion. Degenerative changes in the spine. 3D maximum intensity projection (MIP) images were created on a dependent workstation as ordered by the treating provider and reviewed by the radiologist to increase sensitivity for detection of pulmonary nodules. Procedure Note Rachid Ny M.D. - 01/29/2024 EXAM: CT CHEST WITH IV CONTRAST COMPARISON: CT chest 10/30/2023, 06/11/2023, and 11/13/2022. FINDINGS: Previous left upper lobe wedge resection with recurrence along the staplemargin and interval radiation therapy completed 07/28/2023. There isincreased consolidation surrounding the staple line in the left upperlobe, which now obscures the treated nodule. 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 A 5 mm nodule in the posterior right middle lobe (3/360; annotated screencapture provided) has increased in size from 2 mm on 10/30/2023 and is newsince 11/13/2022. This is concerning for metastasis. A 3 mm nodule in the lateral left lower lobe that was new on the priorexam has resolved. Prior clustered groundglass nodules in the right apexhave also resolved. Right apical scarring. Several small pulmonary nodulesremain unchanged, for example in the central right upper lobe (3/155), posterior right upper lobe (174),and two nodules along the major fissure in the right upper lobe (3/234). AP window and prevascular lymph nodes (circa 3/144) are stable since10/30/2023. Unchanged 8 mm right paratracheal node (3/146) and low leftparatracheal lymph nodes. Stable 6 to 7 mm left supraclavicular lymph node(3/34). Stable right retroclavicular node measuring 6 mm (7/11). Unchanged 4-5 mm left internal mammary node(7/41). Small thyroid nodules. Coronary artery calcification. Mosaic attenuationin the lungs indicating small airways disease. No suspicious osseous lesion. Degenerative changes in the spine. 3D maximum intensity projection (MIP) images were created on a dependentworkstation as ordered by the treating provider and reviewed by theradiologist to increase sensitivity for detection of pulmonary nodules. IMPRESSION: 1. Enlarging pulmonary nodule in the right middle lobe concerning for ametastasis. 2. 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 3. No change in size of small lower neck and chest lymph nodes since10/30/2023. 4. A small nodule in the left lower lobe that was new on the prior studyhas resolved. 5. Infectious/inflammatory groundglass opacities in the right upper lobeon the prior study have also resolved. Shobha Greene APRN, C.N.P., M.S.N. IM G CT PROCEDURES * Lipid Panel (01/14/2024 10:35 AM CDT) Triglycerides 81 mg/dL 01/14/2024 1:52 PM CDT [facility] Comment: ----REFERENCE VALUE---- Normal: <150 mg/dL Borderline High: 150-199 mg/dL High: 200-499 mg/dL Very High: > or =500 mg/dL Cholesterol, Total 169 mg/dL 2023 1:52 PM CDT [facility] Comment: ----REFERENCE VALUE---- Desirable: < 200 mg/dL Borderline High: 200 - 239 mg/dL High: > or = 240 mg/dL Cholesterol, LDL, Calculated 89 mg/dL 01/14/2024 1:52 PM CDT [facility] Comment: ----REFERENCE VALUE---- Desirable: <100 mg/dL Above Desirable: 100-129 mg/dL Borderline High: 130-159 mg/dL High: 160-189 mg/dL Very High: >=190 mg/dL ----ADDITIONAL INFORMATION---- LDL cholesterol calculated using the Grossman/NIH equation. Cholesterol, HDL 65 >=50 mg/dL 01/14/20 1:52 PM CDT [facility] Cholesterol, Non-HDL, Calculated 104 mg/dL 01/14/2024 1:52 PM CDT [facility] Comment: ----REFERENCE VALUE---- Desirable: <130 mg/dL Above Desirable: 130-159 mg/dL Borderline High: 160-189 mg/dL High: 190-219 mg/dL Very High: > or =220 mg/dL Fasting (8 HR or more) Yes 01/14/2024 12:59 PM CDT [facility] Blood (Blood, Venous) 01/14/2024 10:35 AM CDT 01/14/2024 12:59 PM CDT Sonia Schneider P.A.-C. LAB BLOOD ADD-O N [facility] [address] [place] [address], [place] OWAT [facility] [place] [address] [place] [address] * Vitamin D, Immunoassay, Total, Serum (01/14/2024 10:35 AM CDT) Vitamin D, Immunoassay, Total, S 55 20 - 80 ng/mL 01/14/2024 7:51 PM CDT [facility] Comment: Interpretation: 51-80 ng/mL (increased risk of hypercalciuria) Optimum levels within the healthy population are 20-50, patients with bone disease may benefit from high levels within this range Blood 01/14/2024 10:3 5 AM CDT 01/14/2024 7:09 PM CDT Sonia Schneider P.A.-C. LAB BLOOD ADD-O N [facility] [address] [place] [id number], [facility] [place] [address] [place] [address] * Sedimentation Rate (01/14/2024 10:35 AM CDT) Pathologist [facility] Sedimentation Rate, B 14 0 - 29 mm/1 h 01/14/2024 4:02 PM CDT [facility] Blood (Blood, Venous) 01/14/2024 10:35 AM CDT 01/14/2024 3:35 PM CDT Ludmila Glaser APRN C.N.P., M.S. LAB BLOOD ADD-ON [facility] [address] [place] [address], [facility] [address] [place] [address] * (ABNORMAL) CBC with Differential, Blood (01/14/2024 10:35 AM CDT) Hemoglobin 13.6 11.6 - 15.0 g/dL 01/14/2024 11:17 AM CDT FB60 Hematocrit 40.8 35.5 - 44.9 % 01/14/2024 11:17 AM CDT FB60 Erythrocytes 4.45 3.92 - 5.13 x10(12)/L 01/14/2024 11:17 AM CDT FB60 MCV 91.7 78.2 - 97.9 fL 01/14/2024 11:17 AM CDT FB60 RBC Distrib Width 13.1 12.2 - 16.1 % 01/14/2024 11:17 AM CDT FB60 Platelet Count 219 157 - 371 x10(9)/L 01/14/2024 11:17 AM CDT FB60 Leukocytes 4.2 3.4 - 9.6 x10(9)/L 01/14/2024 11:17 AM CDT FB60 Neutrophils 3.12 1.56 - 6.45 x10(9)/L 01/14/2024 11:17 AM CDT FB60 Lymphocytes 0.56(L) 0.95 - 3.07 x10(9)/L 01/14/2024 11:17 AM CDT FB60 Monocytes 0.39 0.26 - 0.81 x10(9)/L 01/14/2024 11:17 AM CDT FB60 Eosinophils 0.12 0.03 - 0.48 x10(9)/L 01/14/2024 11:17 AM CDT FB60 Basophils <0.04 0.01 - 0.08 x10(9)/L 01/14/2024 11:17 AM CDT FB60 Blood (Blood, Venous) 01/14/2024 10:35 AM CDT 01/14/2024 10:35 AM CDT Ludmila Glaser APRN, C.N.P., M.S. LAB BLOOD ADD-ON [facility] [address] [place] [address], [facility] FB60 [facility] [place] [address] [place] [address] * (ABNORMAL) CRP (C-Reactive Protein) (01/14/2024 10:35 AM CDT) C-Reactive Protein (CRP), P 11.6(H) <5.0 mg/L 01/14/2024 1:52 PM CDT OW[facility] Blood (Blood, Venous) 01/14/2024 10:35 AM CDT 01/14/2024 12:59 PM CDT Bashir Roman APRNNNelia., M.S. LAB BLOOD ADD-ON [facility] [address] [place] [address], [facility] OWAT [facility] [place] [address] [place] [address] * ALT (Alanine Aminotransferase) (01/14/2024 10:35 AM CDT) Alanine Aminotransferase (ALT), P 21 7 - 45 U/L 01/14/2024 1:52 PM CDT [facility] Blood (Blood, Venous) 01/14/2024 10:35 AM CDT 01/14/2024 12:59 PM CDT Bashir Roman APRNNNelia., M.S. LAB BLOOD ADD-ON [facility] [address] [place] [address], [facility] OWAT [facility] [place] [address] [place] [address] * AST (Aspartate Aminotransferase) (01/14/2024 10:35 AM CDT) Aspartate Aminotransferase (AST), P 30 8 - 43 U/L 01/14/2024 1:52 PM CDT [facility] Blood (Blood, Venous) 01/14/2024 10:35 AM CDT 01/14/2024 12:59 PM CDT Bashir Roman APRNN.Sebastian., M.S. LAB [facility] [address] [place] [address], [facility] OWAT [facility] [place] [address] [place] [address] * Vitamin B12 Assay (01/14/2024 10:35 AM CDT) Vitamin B12 Assay, S 569 232 - 1245 ng/L 01/14/2024 6:52 PM CDT [facility] Comment: Biotin has been identified by the circular sawyer stone as a potential interfering substance. Higher concentrations of biotin may be found in multivitamins, hair/nail supplements, and workout supplements. If the result does not match clinical observations, repeat testing after patient refrains from the use of supplements for at least 12 hours. Blood (Blood, Venous) 01/14/2024 10:35 AM CDT 01/14/2024 3:35 PM CDT Sonia Schneider P.A.-C. LAB BLOOD ADD-O N [facility] [address] [place] [address], [facility] [address] [place] [address] * (ABNORMAL) Basic Metabolic Panel (01/14/2024 10:35 AM CDT) Pathologist [facility] Potassium, P 4.2 3.6 - 5.2 mmol/L 01/14/2024 1:52 PM CDT [facility] Sodium, P 135 135 - 145 mmol/L 01/14/2024 1:52 PM CDT [facility] Chloride, P 99 98 - 107 mmol/L 01/14/2024 1:52 PM CDT [facility] Bicarbonate, P 24 22 - 29 mmol/L 01/14/2024 1:52 PM CDT [facility] Anion Gap, P 12 7 - 15 01/14/2024 1:52 PM CDT [facility] BUN (Blood Urea Nitrogen), P 10 6 - 21 mg/dL 01/14/2024 1:52 PM CDT [facility] Creatinine 0.64 0.59 - 1.04 mg/dL 01/14/2024 1:52 PM CDT [facility] Estimated GFR (eGFR) >90 >=60 mL/min/BSA 01/14/2024 1:52 PM CDT [facility] Comment: Estimated GFR calculated using the 2020 CKD_EPI creatinine equation. Calcium, Total, P 10.5(H) 8.8 - 10.2 mg/dL 01/14/2024 1:52 PM CDT OWAT Glucose, P 81 70 - 140 mg/dL 01/14/2024 1:52 PM CDT OWAT Blood (Blood, Venous) 01/14/2024 10:35 AM CDT 01/14/2024 12:59 PM CDT Sonia Schneider P.A.-C. LAB BLOOD ADD-O N [facility] [address] [place] [id number], [facility] OWAT [facility] [place] [address], [place] [address] * (ABNORMAL) Urinalysis with Microscopic if Indicated (01/07/2024 11:58 AM CDT) Source Urine, Urine, Midstream 01/07/2024 12:05 PM CDT FB60 Clarity Clear Clear 01/07/2024 12:07 PM CDT FB60 Color Yellow 01/07/2024 12:07 PM CDT FB60 Comment: ----REFERENCE VALUE---- Colorless Yellow [place] Blood Trace(A) Negative 01/07/2024 12:07 PM CDT FB60 Nitrite Negative Negative 01/07/2024 12:07 PM CDT FB60 Leukocyte Esterase Small(A) Negative 01/07/2024 12:07 PM CDT FB60 Protein Negative mg/dL 01/07/2024 12:07 PM CDT FB60 Comment: ----REFERENCE VALUE---- Negative Trace Glucose Negative Negative mg/dL 01/07/2024 12:07 PM CDT FB60 Ketones, QI(U) Negative Negative mg/dL 01/07/2024 12:07 PM CDT FB60 Bilirubin Negative Negative 01/07/2024 12:07 PM CDT FB60 pH 6.5 5.0 - 8.0 01/07/2024 12:07 PM CDT FB60 Specific [place] 1.015 1.001 - 1.035 01/07/2024 12:07 PM CDT FB60 Urobilinogen 0.2 0.2 - 1.0 mg/dL 01/07/2024 12:07 PM CDT FB60 Urine (Urine, Midstream) 01/07/2024 11:58 AM CDT 01/07/2024 12:05 PM CDT Denise Gonzalez P.A.-C., P.A. LAB URINE ORDERABLES [facility] [address] [place] [address] * Microscopic Manual (01/07/2024 11:58 AM CDT) White Blood Cells 4-10 /hpf 01/07/2024 12:17 PM CDT FB60 Comment: ----REFERENCE VALUE---- Males: 0-3 Females: 0-10 Unknown: 0-10 Red Blood Cells Occ-2 0 - 2 /hpf 12:17 PM CDT FB60 Urine 01/07/2024 11:5 8 AM CDT 01/07/2024 12:05 PM CDT Denise Gonzalez P.A.-C., P.A. LAB URINE ORDERABLES [facility] [address] [place] [address] * BI Breast Screening Bilateral with Tomosynthesis (04/15/2023 11:41 AM CDT) Anatomical Region Laterality Modality Breast, Breast Imaging RST L OS, Breast Imaging ARZ LOS, Breast Imaging FLA LOS Bilateral Mammography 04/15/2023 2:13 PM CDT Impressions 04/15/2023 2:16 PM CDT Negative. RECOMMENDATION: ??Annual Screening Mammogram ASSESSMENT: ??BI-RADS: 1: Negative. Narrative 04/15/2023 2:16 PM CDT EXAM: ??BI BREAST SCREENING BILATERAL WITH TOMOSYNTHESIS Current study was evaluated with a Computer Aided Detection (CAD) system. INDICATION: ??Screening mammogram. COMPARISON: ??Prior exam(s) were available and reviewed for comparison. DENSITY: ??b. There are scattered areas of fibroglandular density. FINDINGS: ??No mammographic findings of malignancy. Procedure Note Clint Llanes M.D. - 04/15/2023 EXAM: BI BREAST SCREENING BILATERAL WITH TOMOSYNTHESIS Current study was evaluated with a Computer Aided Detection (CAD) system. INDICATION: Screening mammogram. COMPARISON: Prior exam(s) were available and reviewed for comparison. DENSITY: b. There are scattered areas of fibroglandular density. FINDINGS: No mammographic findings of malignancy. IMPRESSION: Negative. RECOMMENDATION: Annual Screening Mammogram ASSESSMENT: BI-RADS: 1: Negative. Sonia BAUTISTA ES * (ABNORMAL) Colonoscopy (08/03/2017) EXT Colonoscopy Abnormal - See Scanned Report for Details Normal - See Scanned Report for Details, HIMS - Report Received and Scanned Comment:See note for result details Historical Provider GI PROCEDURE ORDERAB LES * Chronic Hepatitis Profile (02/17/2013 8:48 AM CDT) HBs Antibody,S Negative Unvaccinated : Negative; Vaccinated: Positive; [facility] Comment:Patient is presumed to be not immune to infection with HBV. HBs Antibody, Quantitative, S <5.00 Unvaccinated : <5.0; Vaccinated: >=12.0; MIU/ML [facility] HCV Ab, S Negative Negative [facility] Comment:Zxjrjp-yv-duwidb rat io is <1.00. HBs Antigen, S Negative Negative [facility] HBc Total Ab, S Negative Negative [facility] 02/17/2013 8:48 AM CDT 02/17/2013 8:48 AM CDT Jacquelyn Roman APRN.N.P., M.S. LAB MICROBIOLOGY - BLOOD ORDERABLES [facility] [address] [place] [address], [facility] from Last 3 Months or Most Recently Relevant to Health Maintenance Advance Directives For more information, please contact: [phone] * Full Code (Latest Code Status on File) Date Activated Date Inactivated Comments 01/29/2023 12:28 PM 02/01/2023 1:37 PM Question Answer Comments Full Code: Discussed * Full Code Date Activated Date Inactivated Comments 01/23/2023 7:40 AM 01/27/2023 1:23 PM Question Answer Comments Full Code: Discussed * Full Code Date Activated Date Inactivated Comments 06/25/2022 1:11 PM 06/26/2022 2:29 PM Question Answer Comments Full Code: Not Discussed Due to: Patient not available * Full Code Date Activated Date Inactivated Comments 12/06/2019 6:04 PM 12/09/2019 1:53 PM Question Answer Comments Full Code: Discussed * Full Code Date Activated Date Inactivated Comments 11/29/2018 6:55 PM 12/02/2018 4:33 PM Question Answer Comments Full Code: Not Discussed Due to: Not medically appropriate Care Teams Structural Designer Relationship Specialty Start Date End Date Sonia Schneider P.A.-C. [address] [place] [address] [place] [address] PCP - General 10/16/22
--- OUTSIDE RECORDS SUMMARY | 2024-03-21 21:19 | XMS_ITS | Clinical Summary ---
Author Organization [facility] Address [place], [place] [address] Care Team Providers Care Cement Breaker Name Role Phone Sonia Schneider PA-C Primary Care Provider [phone]- [phone] Allergies No known active allergies Medications Medication Sig Dispensed Refills Start Date End Date Status cholecalciferol (VITAMIN D3) 1,000 unit capsule Take 1,000 Units by mouth once daily. Active hydrOXYchloroQUINE (PLAQUENIL) 200 mg tablet Take 400 mg by mouth once daily. Active MULTIVITAMIN ORAL Take 1 Tab by mouth once daily. Active atorvastatin (LIPITOR) 10 mg tablet Take 1 Tablet by mouth once daily. 07/21/2022 Active hydroCHLOROthiazide (HCTZ) 25 mg tablet Take 25 mg by mouth once daily. 02/06/2022 Active leflunomide (ARAVA) 10 mg tablet Take 10 mg by mouth once daily. 05/09/2022 Active Social History Tobacco Use Types Packs/Day Years Used Date Smoking Tobacco: Former Passive Smoke Exposure: Past Smokeless Tobacco: Never Tobacco Cessation:Counseling Given: Not Answered Comments:Quit 2001 Alcohol Use Standard Drinks/Week Comments No 0 (1 standard drink = 0.6 oz pur e alcohol) Sex and Gender Information Value Date Recorded Sex Assigned at Not on file Gender Identity Not on file Sexual Orientation Not on file Obstetrics History Last Filed Vital Signs Vital Sign Reading Time Taken Comments Blood Pressure 125/65 11/25/2022 10:15 AM LIVER TRIMMER Pulse 64 11/25/2022 10:15 AM LIVER TRIMMER Temperature 36.6 ??C (97.8 ??F) 11/25/2022 9:36 AM CS T Respiratory Rate 20 11/25/2022 10:15 AM LIVER TRIMMER Oxygen Saturation 95% 11/25/2022 10:15 AM LIVER TRIMMER Inhaled Oxygen Concentration - - Weight 87.5 kg (193 lb) 11/25/2022 7:29 AM LIVER TRIMMER Height 166.1 cm (5' 5.39) 11/12/2022 12:[address] Body Mass Index 31.73 11/12/2022 12:41 PM LIVER TRIMMER Plan of Treatment Health Maintenance Due Date Last Done Comments Tdap 1966 Depression screening for age 12+ 1967 Hepatitis C screening for age 18-79 1973 Tetanus booster 1975 Lipids for age 45-75 01/13/2000 Mammogram for age 45-75 01/13/2000 Zoster (shingles) series for age 50+ (1 of 2) 2005 BMI (ht and wt on same day) for age 18+ 07/27/2018 07/27/2017 DEXA/DXA scan for age 65+ 01/13/2020 Pneumococcal series for age 65+ (1 of 1 - PCV) 01/13/2020 COVID-19 vaccine series ( season) 2023 12/10/2021, 05/31/2021, 05/10/2021 Influenza for age 65+ 06/12/2024 Colonoscopy through age 75 11/25/2032 11/25/2022, Procedures Procedure Name Priority Date/Time Associated Diagnosis Comments COLONOSCOPY 11/25/2022 8:51 AM LIVER TRIMMER from Last 3 Months or Most Recently Relevant to Health Maintenance Results * COLONOSCOPY (11/25/2022 8:51 AM LIVER TRIMMER) 11/25/2022 8:51 AM LIVER TRIMMER Narrative Transcriptions FromBraden deluca MD - 11/25/2022 9:34 AM CST Patient Name: Kylee Miller Procedure Date: 11/25/2022 Gender: Female Date of : 1955 Admit Type: Ambulatory Procedure: Colonoscopy Proceduralist: Fletcher Mcwilliams MD [facility] Referring MD: Nela Savage Indications/Pre-Op Diagnosis: Surveillance: Personal history ofadenomatous polyps on last colonoscopy 5 years ago Medications: Monitored Anesthesia Care Procedure Description: The procedure, indications, potential complications, (bleeding, perforation, infection, adverse medication reaction, missed lesionsor polyps) and alternatives available were explained to the patient, who appeared to understand and indicated this. Opportunity for questionswas provided and informed consent obtained. The endoscope [id number] was passed through the anus and advanced to the cecum, identified by appendiceal orifice andileocecal valve. The colonoscopy was performed with ease. The patient tolerated the procedure well. The quality of the bowel preparation wasevaluated using the BBPS ([place] Bowel Preparation Scale) with scores of: Right Colon = 2 (minor amount of residual staining, small fragments ofstool and/or opaque liquid, but mucosa seen well), Transverse Colon = 2(minor amount of residual staining, small fragments of stool and/or opaque liquid, but mucosa seen well) and Left Colon = 2 (minor amount of residual staining, small fragments of stool and/or opaque liquid, but mucosa seen well). The total BBPS score equals 6. The quality of the bowel preparation was good. Complications: No immediate complications. Estimated Blood Loss & Specimen: Estimated blood loss was minimal. Specimen collected: Yes and sent to Laboratory Findings: The perianal and digital rectal examinations were normal. Pertinent negatives include normal sphincter tone. Normal appearing ileocecal valve Five sessile polyps were found in the ascending colon. The polypswere 3 to 10 mm in size. These polyps were removed with a cold snare.Resection and retrieval were complete. Two sessile polyps were found in the transverse colon. The polypswere 4 to 10 mm in size. These polyps were removed with a cold snare.Resection and retrieval were complete. Multiple medium-mouthed diverticula were found in the sigmoid colonand descending colon. The exam was otherwise without abnormality on direct and retroflexion views. Impressions/Post-Op Diagnosis: - Five 3 to 10 mm polyps in the ascending colon, removed with a cold snare. Resected and retrieved. - Two 4 to 10 mm polyps in the transverse colon, removed with a cold snare. Resected and retrieved. - Diverticulosis in the sigmoid colon and in the descending colon. - The examination was otherwise normal on direct and retroflexionviews. Recommendation: - Await pathology results. - Dr. Mcwilliams's office will contact you with biopsy/pathology results when available. Moderate Sedation: Deep sedation per anesthesia. Fletcher Mcwilliams MD 11/25/2022 9:34:18 AM This report has been signed electronically. Note Initiated On: 11/25/2022 8:51 AM Braden Mcwilliams MD PROCEDURE ORD from Last 3 Months or Most Recently Relevant to Health Maintenance Advance Directives * Full Code (Latest Code Status on File) Date Activated Date Inactivated Comments 11/25/2022 6:12 AM 11/25/2022 12:41 PM Question Answer Comments Code Status Discussion: Reviewed Preferences * Full Code Date Activated Date Inactivated Comments 08/03/2017 7:39 AM 08/03/2017 4:49 PM Care Teams Cement Breaker Relationship Specialty Start Date End Date Sonia Schneider PA-C [address] [place], [place] [address] [phone] PCP - General Physician Cream Ripener 11/07/22
--- OUTSIDE RECORDS SUMMARY | 2024-03-21 21:20 | XMS_ITS | Encounter Summary ---
Author Organization [facility] Address [address] [place] [address] Care Team Providers Care Finishing Supervisor Name Role Phone Sonia Schneider P.A.-C. Primary Care Provider Reason for Referral * Outpatient (Routine) - Authorized Specialty Diagnoses / Procedures Referred By Erick handy Referred To Contact Hematology Oncology Malik Fierro M.B.B.S. [address] [place] [phone] [facility] Referral ID Status Reason Start Date Expiration Date V isits Requested Visits Authorized [id number] Authorized 02/02/2024 08/03/2025 1 1 Encounter Details Date Type Department Care Team (Late st Contact Info) Description 02/02/2024 Orders Only Division of Hematology in [place], [place] [address] [place] [phone] Malik Fierro M.B.B.S. [address] [place] [phone] Myelodysplastic Syndrome (HCC) (Primary Dx) Social History Tobacco Use Types Packs/Day Years Used Date Smoking Tobacco: Former Cigarettes 1 32.3 0 10/12/1969 - 2002 Smokeless Tobacco: Never Alcohol Use Standard Drinks/Week Comments No 0 (1 standard drink = 0.6 oz pur e alcohol) [facility] Utilities Answer Date Recorded In the past 12 months has e electric, gas, oil, or water company threatened to shut off services in your [...] often do you attend chur ch or jain services? Never 11/06/2022 Do you belong to any clubs o r organizations such as episcopalian groups, unions, fraternal or athletic groups, or [...] Answer Date Recorded PHQ-2 Score 0 11/17/2023 [facility] - Occupational Stress Questionnaire Answer Date Recorded [...] your living situation today? I have a [facility] place to live 01/26/2024 Education Answer Date Recorded What is the highest level of school you have completed or the highest degree you have received? Some college, no degree 11/06/2022 Sex and Gender Information Value Date Recorded Sex Assigned at Female 08/02/2018 5:05 PM CDT Gender Identity Not on file Sexual Orientation Straight 08/02/2018 5: 05 PM CDT documented as of this encounter Plan of Treatment Upcoming Encounters Date Type Department Care Team (Late st Contact Info) Description 04/05/2024 10:30 AM CDT Appointment Department of Laboratory Medicine in [place], [place] [address] [place] [phone] Malik Fierro M.B.B.S. [address] [place] [phone] 04/07/2024 10:30 AM CDT Clinical Communication Virtual Review in [place], [place] [address] [place] [phone] 04/11/2024 9:00 AM CDT Telemedicine Division of Hematology in [place], [place] [address] [place] [phone] Malik Fierro M.B.B.S. [address] [place] [phone] 04/21/2024 1:30 PM CDT Appointment Department of Laboratory Medicine in [place], [place] [address] [place] [phone] Ludmila Glaser APRN, C.N.P., M.S. [address] [place] [phone] 05/02/2024 10:45 AM CDT Clinical Communication Virtual Review in [place], [place] [address] [place] [phone] 05/04/2024 8:15 AM CDT Appointment Department of Radiology, [facility], in [place], [place] [address] [place] [phone] Shobha Greene APRN, C.N.P., M.S.N. [address] [place] [phone] 05/04/2024 3:20 PM CDT Office Visit Department of Oncology in [place], [place] [address] [place] [phone] Shobha Greene APRN C.N.P., M.S.N. [address] [place] [phone] 05/05/2024 9:00 AM CDT Appointment Department of Radiation Oncology in [place], [place] [address] [place] [address] Anabel Medeiros M.D., Ph.D. [address] [place] [phone] Scheduled Orders Name Type Priority Associated Diagnoses Orde r Schedule CBC with Differential, Blood Lab Routine Myelodysplastic Syndrome (HCC) Expected: 04/13/2024, Expires: 05/03/2025 Scheduled Referrals Name Type Priority Associated Diagnoses Order Schedule Hematology office visit (clinic) [facility]; Premyeloid BMF; General Outpatient Referral Routine Expected: 04/13/2024, Expires: 05/03/2025 documented as of this encounter Visit Diagnoses Diagnosis Myelodysplastic Syndrome (HCC)- Primary documented in this encounter Additional Health Concerns Assessment Noted Time PHQ-9 Depression Total Score: 4 09/11/20 16 9:23 AM REAL ESTATE ASSOCIATE documented as of this encounter Care Teams Finishing Supervisor Relationship Specialty Start Date End Date Sonia Schneider P.A.-C. [address] [place] [phone] PCP - General 10/16/22 documented as of this encounter
--- OUTSIDE RECORDS SUMMARY | 2024-03-21 21:20 | XMS_ITS | Encounter Summary ---
Author Organization [facility] Address [address] [place] [address] Care Team Providers Care Cotton Breeder Name Role Phone Sonia Schneider P.A.-C. Primary Care Provider Reason for Referral * Outpatient (Routine) - Closed Specialty Diagnoses / Procedures Referred By Contac t Referred To Contact Diagnoses Hyperparathyroidism Primary (HCC) Procedures BMD Bone Density Radius Sonia Schneider P.A.-C. [address] [place] [address] [facility] Referral ID Status Reason Start Date Expiration Date Visits Re quested Visits Authorized [id number] Closed 02/25/2024 02/24/2025 1 1 Reason for Visit * Outpatient (Routine) - Closed Specialty Diagnoses / Procedures Referred By Contestefani handy Referred To Contact Diagnoses Hyperparathyroidism Primary (HCC) Procedures BMD Bone Density Radius Sonia Schneider P.A.-C. [address] [place] [address] [facility] Region Referral ID Status Reason Start Date Expiration Date Visits Re quested Visits Authorized [id number] Closed 02/25/2024 02/24/2025 1 1 Encounter Details Date Type Department Care Team (Latest Contact Info) Description 03/10/2024 1:12 PM CDT - 03/10/2024 11:59 PM CDT Hospital Encounter Department of Radiology in [place], [place] [address] [facility] [place] [address] Sonia Schneider P.A.-C. [address] [facility] [address] Hyperparathyroidism Primary (HCC) Discharge Disposition: Home or Self Care Social History Tobacco Use Types Packs/Day Years Used Date Smoking Tobacco: Former Cigarettes 1 32.3 0 10/12/1969 - 2002 Smokeless Tobacco: Never Alcohol Use Standard Drinks/Week Comments No 0 (1 standard drink = 0.6 oz pur e alcohol) [facility] Utilities Answer Date Recorded In the past 12 months has e [employer], gas, oil, or water [employer] threatened to shut off services in your [...] week 11/06/2022 How often do you attend [facility] sa[facility] or rastafari services? Never 11/06/2022 Do you belong to any clubs o r organizations such as restorationism groups, unions, fraternal or athletic groups, or [...] Answer Date Recorded PHQ-2 Score 0 11/17/2023 [facility] of Occupat ional Health - Occupational Stress Questionnaire Answer Date Recorded [...] Date Recorded Dental: Regular Dentist Yes 07/01/20 21 Employment Answer Date Recorded Employment status Retired 11/17/2023 Housing Stability Answer Date Recorded What is your living situation today? I have a [facility] place to live 01/26/2024 Education Answer Date Recorded What is the highest level of school you have completed or the highest degree you have received? Some college, no degree 11/06/2022 Sex and Gender Information Value Date Recorded Sex Assigned at Female 08/02/2018 5:05 PM CDT Gender Identity Not on file Sexual Orientation Straight 08/02/2018 5: 05 PM CDT documented as of this encounter Medications at Time of Discharge Medication Sig Dispensed Refills Start Date End Date acetaminophen (TYLENOL) 500 mg tablet Take 2 tablets (1,000 mg total) by mouth every 6 (six) hours as needed for pain. 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 8 g 11 02/19/[address] tablet Take 81 mg by mouth daily. atorvastatin (LIPITOR) 10 mg tabletIndications:Hyper cholesterolemia TAKE ONE TABLET (10 MG TOTAL) BY MOUTH ONCE DAILY 90 tablet 3 12/30/2023 B complex-vitamins (BALANCE B-50) tablet Take 1 tablet by mouth daily. CHOLECALCIFEROL, VITAMIN D3, ORAL Take 3,000 Units by mouth daily. co-enzyme Q-10 30 mg capsule Take 30 mg by mouth daily. cranberry fruit extract (CRANBERRY CONCENTRATE ORAL) Take 2 tablets by mouth daily. hydroCHLOROthiazide (HYDRODIURIL) 25 mg tabletIndications:Hyper tension And Chronic Kidney Disease Stage 2 Take 0.5 tablets (12.5 mg total) by mouth daily. 90 tablet 3 01/11/2024 hydroxychloroquine (PLAQUENIL) 200 mg tabletIndications:Arthr itis Rheumatoid (HCC) Take 1 tablet (200 mg total) by mouth 2 (two) times a day. 180 tablet 3 06/22/2023 ibuprofen (ADVIL,MOTRIN) 200 mg tablet Take 2 tablets (400 mg total) by mouth every 6 (six) hours as needed for pain. 01/23/2023 L.acidoph-Lba-B.bif- S.therm (BACID) 1 billion cell- 250 mg per tablet Take 1 tablet by mouth daily as needed. leflunomide (ARAVA) 10 mg tabletIndications:Arthr itis Rheumatoid (HCC) take one tablet by mouth every day 90 tablet 1 12/14/2023 loratadine (CLARITIN) 10 mg tablet Take 10 mg by mouth daily as needed for allergies. multivitamin capsule Take 1 capsule by mouth daily. omega-3 fatty acids-fish oil 300-1,000 mg per capsule Take 2 g by mouth daily. ondansetron ODT (ZOFRAN-ODT) 4 mg disintegrating tablet Dissolve 1 tablet (4 mg total) in the mouth every 6 (six) hours as needed for nausea or vomiting. 10 tablet 02/01/2023 oxyCODONE (ROXICODONE) 5 mg immediate release tabletIndications:Acute Pain Take 1 tablet (5 mg total) by mouth every 4 (four) hours as needed for severe pain or score 7-10 of 10 (not relieved by acetaminophen and ibuprofen) Indication: Acute Pain. 10 tablet 01/23/2023 polyvinyl alcohol (NU-TEARS) 1.4 % ophthalmic solution Administer 1 drop into both eyes 4 (four) times a day as needed for dry eyes. predniSONE (DELTASONE) 5 mg tabletIndications:Arthr itis Rheumatoid (HCC) Take 20mg (4 tabs) orally x 3days, then 15mg (3 tabs) orally x3 days, then 10mg (2 tabs) orally x3 days, then 1 tab x3 days, then stop 30 tablet 1 02/01/2024 sennosides-docusate sodium (SENOKOT-S) 8.6-50 mg per tablet Take 1 tablet by mouth at bedtime as needed for constipation. 01/23/2023 documented as of this encounter Plan of Treatment Upcoming Encounters Date Type Department Care Team (Late st Contact Info) Description 04/05/2024 10:30 AM CDT Appointment Department of Laboratory Medicine in [address] [phone] Malik Fierro M.B.B.S. [address] [place] [phone] 04/07/2024 10:30 AM CDT Clinical Communication Virtual Review in [place], [place] [address] [place] [address] 04/11/2024 9:00 AM CDT Telemedicine Division of Hematology in [place], [place] [address] [place] [phone] Malik Fierro M.B.B.S. [address] [place] [phone] 04/21/2024 1:30 PM CDT Appointment Department of Laboratory Medicine in [address] [phone] Ludmlia Glaser APRN, C.N.P., M.S. [address] [place] [phone] 05/02/2024 10:45 AM CDT Clinical Communication Virtual Review in [place], [place] [address] [place] [address] 05/04/2024 8:15 AM CDT Appointment Department of Radiology, [facility], in [place], [place] [address] [place] [phone] Shobha Greene APRN, C.N.P., M.S.N. [address] [place] [phone] 05/04/2024 3:20 PM CDT Office Visit Department of Oncology in [place], [place] [address] [place] [phone] Shobha Greene APRN, C.N.P., M.S.N. [address] [place] [phone] 05/05/2024 9:00 AM CDT Appointment Department of Radiation Oncology in [place], [place] [address] [place] [address] Anabel Medeiros M.D., Ph.D. [address] [place] [address] documented as of this encounter Procedures Procedure Name Priority Date/Time Associated Diagnosis Comments BMD BONE DENSITY RADIUS RAD - Routine (most inpatients and all outpatients) 03/10/2024 1:48 PM CDT Hyperparathyroidi sm Primary (HCC) documented in this encounter Results * BMD Bone Density Radius (03/10/2024 1:48 PM CDT) Anatomical Region Laterality Modality Forearm, Wrist, Nuclear Medi cine RST LOS, Musculoskeletal ARZ LOS, Muskuloskeletal FLA LOS N/A Radio graphic Imaging Impressions 03/10/2024 2:47 PM CDT Osteoporosis Left Forearm (region: Radius 33%) Narrative 03/10/2024 2:47 PM CDT EXAM: ??BMD BONE DENSITY RADIUS Bone Mineral Density (BMD) analysis performed on [employer] with serial number [id number]. ? FINDINGS: Left Radius: 1/3 Radius: BMD [...] Bone Mineral Density (BMD) analysis performed on [employer] withserial number [id number]. FINDINGS: Left Radius: 1/3 Radius: BMD = 0.661 g/cm2 T-score = -2.6 Z-score = -0.8 Please note: A more comprehensive DXA report, including images and graphs,is available in QREADS. In the absence of other causes of [...] Forearm (region: Radius 33%) Sonia Schneider P.A.-C. IMG DXA PROCEDU RES documented in this encounter Visit Diagnoses Diagnosis Hyperparathyroidism Primary (HCC) documented in this encounter Additional Health Concerns Assessment Noted Time PHQ-9 Depression Total Score: 4 09/11/20 16 9:23 AM BILINGUAL MEDICAL RECEPTIONIST documented as of this encounter Care Teams Cotton Breeder Relationship Specialty Start Date End Date Sonia Schneider P.A.-C. [address] [place] [address] PCP - General 10/16/22 documented as of this encounter
--- OUTSIDE RECORDS SUMMARY | 2024-03-21 21:20 | XMS_ITS | Encounter Summary ---
Author Organization [facility] Address [address] [place] [address] Care Team Providers Care Transformer Mechanic Name Role Phone Sonia Schneider P.A.-C. 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 [address] [place] [phone] Anabel Medeiros M.D., Ph.D. [address] [place] [phone] Referral ID Status Reason Start Date Expiration Date V isits Requested Visits Authorized [id number] Authorized 02/02/2024 08/03/2025 1 1 Scheduling Instructions Coordinate with restaging scans and Medical Oncology appts * Outpatient (Routine) - Closed Specialty Diagnoses / Procedures Referred By Contac t Referred To Contact Radiation Oncology Anabel Medeiros M.D., Ph.D. [address] [place] [phone] [facility] Referral ID Status Reason Start Date Expiration Date Visits Re quested Visits Authorized [id number] Closed 10/30/2023 04/30/2025 1 1 Scheduling Instructions Same day as med onc please Reason for Visit * Outpatient (Routine) - Closed Specialty Diagnoses / Procedures Referred By Contac t Referred To Contact Radiation Oncology Anabel Medeiros M.D., Ph.D. [address] [place] [address] [facility] Referral ID Status Reason Start Date Expiration Date Visits Re quested Visits Authorized [id number] Closed 10/30/2023 04/30/2025 1 1 Encounter Details Date Type Department Care Team (Latest Contact Info) Description 02/02/2024 11:00 AM CDT - 02/02/2024 1:08 PM CDT Hospital Encounter Department of Radiation Oncology in [place], [place] [address] [place] [address] Anabel Medeiros M.D., Ph.D. [address] [place] [phone] Malignant Neoplasm Of Ovary Left (HCC) (Primary Dx); Secondary Malignant Neoplasm Lung Left (HCC) Social History Tobacco Use Types Packs/Day Years Used Date Smoking Tobacco: Former Cigarettes 1 32.3 0 10/12/1969 - 2002 Smokeless Tobacco: Never Alcohol Use Standard Drinks/Week Comments No 0 (1 standard drink = 0.6 oz pur e alcohol) [facility] Utilities Answer Date Recorded In the past 12 months has e electric, gas, oil, or water [employer] threatened to shut off services in your [...] 11/06/2022 How often do you attend chur or hindu services? Never 11/06/2022 Do you belong to any clubs o r organizations such as pentecostalism groups, unions, fraternal or athletic groups, or [...] Answer Date Recorded PHQ-2 Score 0 11/17/2023 [facility] of Occupat ional Health - Occupational Stress [...] your living situation today? I have a [facility] place to live 01/26/2024 Education Answer [...] PM CDT documented as of this encounter Last Filed Vital Signs Vital Sign Reading Time Taken Comments Blood Pressure - - Pulse - - Temperature - - Respiratory Rate - - Oxygen Saturation - - Inhaled Oxygen Concentration - - Weight 85 kg (187 lb 6.3 oz) 02/02/2024 11:34 AM CDT Height - - Body Mass Index 31.76 02/02/2024 10:40 AM CDT documented in this encounter Medications at Time of Discharge Medication Sig Dispensed Refills Start Date End Date acetaminophen (TYLENOL) 500 mg tablet Take 2 tablets (1,000 mg total) by mouth every 6 (six) hours as needed for pain. 01/23/[address] tablet Take 81 [...] (six) hours as needed for pain. 01/23/2023 LXuanacidoph-Bi-BXuanbif- S.therm (BACID) 1 billion cell- 250 mg [...] constipation. 01/23/2023 documented as of this encounter Progress Notes * Julienne Bird, PAO, C.N.P., D.N.P. - 02/02/2024 11:00 AM CDT Images from the original note were not included. RADIATION ONCOLOGY FOLLOW UP NOTE Chief Complaint: Ms. Kylee Miller is a 68 y.o. female with metastatic ovarian cancer diagnosed in 2008 s/p neoadjuvant carbo/taxol followed by debulking and adjuvant carbo/taxol. Pt recurred inthe MONA treated with wedge resection in 06/2022 and with local recurrence in 12/2022 treated with surgical resection. Pt now presents with a lesion abutting/along the MONA suture line that is biopsy proven local recurrence. Now s/p SBRT to this lesion to 50 Gy/5 fx completed 07/28/2023. Brief Oncologic History of Present Illness: Kylee Miller is a 69 y.o. year old female with an oncologic history as follows: Oncology History Malignant Neoplasm Of Ovary Laterality Unknown (HCC) (Resolved) 09/2008 [employer] one Cdx testing revealed HRD-; SAWYER 6.8%; PRICILLA: TMB 5muts/mb; FGFR3- [id number] rearrangement; ARID1A Q553fs*70; PIK3CA G8986S; TP53 R280K subclonal; LSX082 amplification. 10/2008 Initial Diagnosis Experienced postmenopausal bleeding, and was evaluated by local putty glazer, Dr. Steele, with D&C showed an endometrial polyp. Ultrasound performed at that time showed the left adnexal mass of about 7 cm confirmed by pelvis MRI. 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 Only the left adnexa was removed entirely without rupture of the mass. 12/29/2008 - 01/2009 Chemotherapy Two cycles of carboplatin and paclitaxel. 03/09/2009 Surgery and Procedures Underwent a full staging procedure by Dr. Rodriguez with laparoscopic, extraperitoneal, bilateral, periaortic lymphadenectomy; laparoscopic omentectomy; robotic-assisted, modified, radical type 2 hysterectomy; right salpingo-oophorectomy; and bilateral pelvic lymphadenectomy. No evidence of metastatic disease. 04/2009 - 05/16/2009 Chemotherapy Completed 2 additional cycles of carboplatin and paclitaxel therapy. Initiation was delayed secondary to a stroke postoperatively as well as postoperative infection. 10/2018 Rec[facility] 10/14/2018 - Presents locally for complaints of vaginal discharge. 10/18/2018 - Referred to gynecology. Mass seen and palpated on vaginal exam. 2018 - Pelvic US reports a new mass within the vaginal cuff and a new mass abutting the superior aspect of the vaginal cuff. Also reported stable 8.4 cm lymphocele. 10/29/2018 - CT abdomen/pelvis/chest reports lobulated pelvic mass associated wit h the vaginal cuff measuring 6 cm, suspicious for malignancy. 11/24/[address] Rodriguez performed an exploratory laparotomy, drainage of left pelvic lymphocele, Resection of distal vagina, left parametrium, and distal left ureter, and left ureteroneocystostomy repair of umbilical hernia. RD0. 12/20/2018 - Chemotherapy CARBOplatin AUC 6 / PACLitaxel ( ACCOUNTING METHODS ANALYST ) Start Date: 12/20/2018 Initiated taxol at 140 mg/m2 due to previous difficulty with cytopenias. Recommended at least 3-4 cycles of chemotherapy and up to 6 cycles. She only received two cycles at this dose then reduced to weekly (See below). - 05/11/2019 Chemotherapy CARBOplatin AUC 2 Weekly / PACLitaxel Weekly ( ACCOUNTING METHODS ANALYST ) Start Date: 02/16/2019 4 cycles, missed last week of treatment due to counts. 12/06/2019 Surgery and Procedures ROBOTIC-ASSISTED PARTIAL NEPHRECTOMY. 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 05/16/2022 Biopsy/Pathology CT guided lung biopsy Lung, Left upper lobe nodule, fine needle aspiration (smears/core biopsy): Positive for malignancy. Metastatic carcinoma, consistent with clear cell carcinoma. 06/25/2022 Surgery and Procedures Lung, left upper lobe, wedge resection: Metastatic adenocarcinoma, forming two (2) nodules, (1.6 and 1.3 cm). Consistent with metastasis of patient's known ovarian clear cell carcinoma. Surgical resection margins are negative for tumor by 1.5 cm. 12/18/2022 Biopsy/Pathology Biopsy at vaginal cuff tissue was positive for recurrence of clear cell carcinoma. 01/23/2023 Surgery and Procedures Underwent exploratory laparotomy, partial vaginectomy, vaginal resection upper vagina, lysis of adhesions, and enterotomy repair. There was no evidence of disease at completion of the surgery. 06/11/[address] chest: Increased nodular soft tissue along the left upper lobe postoperative changes measuring approximately 2.1 x 2.8 cm on series 3 image 253 compared with previous 1.1 x 2.1 cm on 11/13/2022 is worrisome for local recurrence. Malignant Neoplasm Of Ovary Laterality Unknown (HCC) 06/23/2023 Biopsy/Pathology CT guided biopsy of her MONA nodule showed metastatic clear cell carcinoma consistent with her primary ovarian cancer. 07/22/2023 - Radiation Therapy Radiation Therapy Treatment Details (Noted on 07/09/2023) Site: Left Lung Technique: No technique specified Goal: Curative Planned Treatment Start Date: 07/22/2023 Interval History: Ms. Miller returns for follow up 6 months post completion of SBRT. CT CAP from today shows enlargingpulmonary nodule in the right middle lobe concerning for a metastasis. There is evolving post radiation fibrosis in the left upper lobe, which now obscures the treated nodule. There is no change in size of small lower neck and chest lymph nodes since 10/30/2023. Nothing for recurrent or metastatic disease in abdomen and pelvis. CT Chest 01/28/23 (left) compared to 10/30/23 (right) Symptomatically, she has been experiencing increased fatigue and joint pain over the past few months related to an RA flare-up for which she started steroids yesterday. She is feeling better today. Her chest can feel tight intermittently, though she does not feel shortness of breath and cough is not worse. She continues to monitor her O2 sat at home which is at 96-98% consistently. She denies any other concerns. Review of Systems: A complete 14-point review of systems was performed, and the pertinent positiveshave been described above. Medications: Reviewed and updated today. Allergies: Reviewed and updated today. Physical Exam: ECO SpO2 97% at rest, HR 70 regular sitting GENERAL: This is a well appearing female in no acute distress who converses well. Alert and oriented x 3. HEENT: PERRL. LUNGS: Mild expiratory wheeze to RUL, otherwise clear. Clear throughout in left. HEART: Regular rate and rhythm, no murmurs, rubs or gallops Labs: Lab Results Component Value Date WBC 4.2 01/14/2024 HGB 13.6 01/14/2024 HCT 40.8 01/14/2024 RBC 4.45 01/14/2024 MCV 91.7 01/14/2024 RDW 13.1 01/14/2024 Lab Results Component Value Date ALT 21 01/14/2024 AST 30 01/14/2024 ALKPHOS 65 01/29/2023 BILITOT 0.4 01/29/2023 Lab Results Component Value Date CREATININE 0.64 01/14/2024 BUN 10 01/14/2024 NA 135 01/14/2024 CL 99 01/14/2024 CO2 26 09/11/2016 GLUCOSE 81 01/14/2024 EGFR >90 01/14/2024 CALCIUM 10.5 (H) 01/14/2024 Radiology: I personally reviewed the radiology images. Assessment and Plan: Kylee Miller is a 69 y.o. year old female with metastatic ovarian cancer diagnosed in 2008 s/p neoadjuvant carbo/taxol followed by debulking and adjuvant carbo/taxol. Pt recurred in the MONA treated with wedge resection in 06/2022 and with local recurrence in 12/2022 treated with surgical resection. Pt now presents with a lesion abutting/along the MONA suture line that is biopsy proven local recurrence. Now s/p SBRT to this lesion to this lesion to 50 Gy/5 fx completed 07/28/2023. Ms. Miller has no concerning symptoms today. On CT imaging, there is increased fibrosis surrounding the prior treated left lung nodule, which we will continue to watch. She also has an enlarging indeterminate 5 mm RML lesion which has grown from 2 mm since October 2023. For now, we can continue to monitor. If there is continued enlargement of this lesion we could consider local therapy. For now, we will plan to see her again when she returns for repeat imaging in 3 months in coordination with Medical Oncology. Patient agreeable to plan of care. Plan reviewed with supervising physician Dr. Anabel Medeiros. Julienne Bird APRN, C.NAleida, D.N.P. documented in this encounter Plan of Treatment Upcoming Encounters Date Type Department Care Team (Late st Contact Info) Description 04/05/2024 10:30 AM CDT Appointment Department of Laboratory Medicine in [address] [phone] Malik Fierro M.B.B.S. [address] [place] [phone] 04/07/2024 10:30 AM CDT Clinical Communication Virtual Review in [place], [place] 200 [place] [address] 04/11/2024 9:00 AM CDT Telemedicine Division of Hematology in [address] [phone] Malik Fierro M.B.B.S. [address] [place] [phone] 04/21/2024 1:30 PM CDT Appointment Department of Laboratory Medicine in [address] [phone] Ludmila Glaser APRN, C.N.P., M.S. [address] [place] [phone] 05/02/2024 10:45 AM CDT Clinical Communication Virtual Review in [place], [place] 200 [place] [address] 05/04/2024 8:15 AM CDT Appointment Department of Radiology, [facility], in [address] [phone] Shobha Greene APRN, C.N.P., M.S.N. [address] [place] [phone] 05/04/2024 3:20 PM CDT Office Visit Department of Oncology in [address] [phone] Shobha Greene APRN, C.N.P., M.S.N. [address] [place] [phone] 05/05/2024 9:00 AM CDT Appointment Department of Radiation Oncology in [address] [phone] Anabel Medeiros M.D., Ph.D. [address] [place] [phone] Scheduled Referrals Name Type Priority Associated Diagnoses Order Schedule Radiation Oncology office visit (clinic) Outpatient Referral Routine Once for 1 Occurrences starting 02/02/2024 until 02/02/2024 Radiation Oncology office visit (clinic) Outpatient Referral Routine Malignant Neoplasm Of Ovary Left (HCC) Secondary Malignant Neoplasm Lung Left (HCC) Expected: 05/03/2024, Expires: 05/03/2025 documented as of this encounter Visit Diagnoses Diagnosis Malignant Neoplasm Of Ovary Left (HCC)- Primary Secondary Malignant Neoplasm Lung Left (HCC) documented in this encounter Additional Health Concerns Assessment Noted Time PHQ-9 Depression Total Score: 4 09/11/20 16 9:23 AM TELEPHONE MESSENGER documented as of this encounter Care Teams Transformer Mechanic Relationship Specialty Start Date End Date Sonia Schneider P.A.-C. [address] [phone] PCP - General 10/16/22 documented as of this encounter
--- OUTSIDE RECORDS SUMMARY | 2024-03-21 21:20 | XMS_ITS ---
Author Organization [facility] Address [address] [place] [address] Care Team Providers Care Quantity Surveyor Name Role Phone Unavailable Unavailable Unavailable Surgery Details Not on file Complications Check Surgery Details section. Procedure Estimated Blood Loss Check Surgery Details section. Procedure Findings Check Surgery Details section. Procedure Specimens Taken Check Surgery Details section.
--- OUTSIDE RECORDS SUMMARY | 2024-03-21 21:20 | XMS_ITS | Encounter Summary ---
Author Organization [facility] Address [address] [place] [address] Care Team Providers Care Branner Machine Tender Name Role Phone Sonia Schneider P.A.-C. Primary Care Provider Reason for Referral * Outpatient (Routine) - Closed Specialty Diagnoses / Procedures Referred By Contac t Referred To Contact Diagnoses Hyperparathyroidism Primary (HCC) Procedures BMD Bone Density Spine Hips Sonia Schneider P.A.-C. [address] [place] [phone] [facility] Region Referral ID Status Reason Start Date Expiration Date Visits Re quested Visits Authorized [id number] Closed 01/24/2024 01/23/2025 1 1 Reason for Visit * Outpatient (Routine) - Closed Specialty Diagnoses / Procedures Referred By Contac t Referred To Contact Diagnoses Hyperparathyroidism Primary (HCC) Procedures BMD Bone Density Spine Hips Sonia Schneider P.A.-C. [address] [place] [address] [facility] Region Referral ID Status Reason Start Date Expiration Date Visits Re quested Visits Authorized [id number] Closed 01/24/2024 01/23/2025 1 1 Encounter Details Date Type Department Care Team (Latest Contact Info) Description 03/10/2024 1:10 PM CDT - 03/10/2024 1:11 PM CDT Hospital Encounter Department of Radiology in [place], [place] [address] [facility] [place] [phone] Sonia Schneider P.A.-C. [address] [facility] [place] [phone] Hyperparathyroidism Primary (HCC) Discharge Disposition: Home or Self Care Social History Tobacco Use Types Packs/Day Years Used Date Smoking Tobacco: Former Cigarettes 1 32.3 0 10/12/1969 - 2002 Smokeless Tobacco: Never Alcohol Use Standard Drinks/Week Comments No 0 (1 standard drink = 0.6 oz pur e alcohol) [facility] Utilities Answer Date Recorded In the past 12 months has e [employer], gas, oil, or water [employer] threatened to shut off services in your [...] How often do you attend chur or mandaeism services? Never 11/06/2022 Do you belong to any clubs o r organizations such as advent groups, unions, fraternal or athletic groups, or [...] Answer Date Recorded PHQ-2 Score 0 11/17/2023 [facility] of Occupat ional Health - Occupational Stress [...] (six) hours as needed for pain. 01/23/2023 L.acidoph-Lcarg-B.bif- S.therm (BACID) 1 billion cell- 250 mg [...] Appointment Department of Laboratory Medicine in [address] [phone] Malik Fierro M.B.B.S. [address] [place] [phone] 04/07/2024 10:30 AM CDT Clinical Communication Virtual Review in [place], [place] 200 [place] [address] 04/11/2024 9:00 AM CDT Telemedicine Division of Hematology in [place], [place] [address] [place] [phone] Malik Fierro, M.B.B.S. [address] [place] [phone] 04/21/2024 1:30 PM CDT Appointment Department of Laboratory Medicine in [address] [phone] Ludmila Glaser APRN, C.N.P., M.S. [address] [place] [phone] 05/02/2024 10:45 AM CDT Clinical Communication Virtual Review in [place], [place] 200 [place] [address] 05/04/2024 8:15 AM CDT Appointment Department of Radiology, [facility], in [place], [place] [address] [place] [phone] Shobha Greene APRN, C.N.P., M.S.N. [address] [place] [phone] 05/04/2024 3:20 PM CDT Office Visit Department of Oncology in [place], [place] [address] [place] [phone] Shobha Greene APRN, C.N.P., M.S.N. [address] [place] [phone] 05/05/2024 9:00 AM CDT Appointment Department of Radiation Oncology in [place], [place] [address] [place] [address] Anabel Medeiros M.D., Ph.D. [address] [place] [address] documented as of this encounter Procedures Procedure Name Priority Date/Time Associated Diagnosis Comments BMD BONE DENSITY SPINE HIPS RAD - Routine (most inpatients and all outpatients) 03/10/2024 1:50 PM CDT Hyperparathyroidi sm Primary (HCC) documented in this encounter Results * BMD Bone Density Spine Hips [...] Bone Mineral Density (BMD) analysis performed on Chango with serial number [id number]. COMPARISON: Serial Comparisons Left Total Hip results: [...] including images and graphs, is available in [employer]. In the absence of other causes of [...] image stored in the BMD study in [employer]), the calculated ten year probability of fracture is: FRAX Risk Factors: Rheumatoid Arthritis FRAX (10 yr probability) adjusted for TBS: Major Osteoporotic Fracture: ??13.3 % Hip Fracture: ?2.1 % ?? Procedure Note Rachid Florez M.D. - 03/10/2024 EXAM: BMD BONE DENSITY SPINE HIPS Bone Mineral Density (BMD) analysis performed on Chango withserial number [id number]. COMPARISON: Serial Comparisons Left Total Hip results: [...] Dual[employer]emur (region: Total Right) Sonia Schneider P.A.-C. 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 [address] [place] [phone] PCP - General 10/16/22 documented as of this encounter
--- OUTSIDE RECORDS SUMMARY | 2024-03-21 21:20 | XMS_ITS | Encounter Summary ---
Author Organization [facility] Address [address] [place] [phone] Care Team Providers Care Physician President Name Role Phone Sonia Schneider P.A.-C. Primary Care Provider Encounter Details Date Type Department Care Team (Late st Contact Info) Description 02/19/2024 Orders Only Department of Radiation Oncology in [place], [place] [address] [place] [phone] Julienne Bird, PAO, C.N.P., D.N.P. [address] [place] [phone] Secondary Malignant Neoplasm Lung Left (HCC) (Primary Dx); Malignant Neoplasm Of Ovary Laterality Unknown (HCC) Social History Tobacco Use Types Packs/Day Years Used Date Smoking Tobacco: Former Cigarettes 1 32.3 0 10/12/1969 - 2002 Smokeless Tobacco: Never Alcohol Use Standard Drinks/Week Comments No 0 (1 standard drink = 0.6 oz pur e alcohol) [facility] Utilities Answer Date Recorded In the past 12 months has e [employer], gas, oil, or water [employer] threatened to shut off services in your [...] often do you attend chur ch or anabaptist services? Never 11/06/2022 Do you belong to any clubs o r organizations such as yarsanism groups, unions, fraternal or athletic groups, or [...] Answer Date Recorded PHQ-2 Score 0 11/17/2023 [facility] of Occupat ional Health - Occupational Stress [...] your living situation today? I have a [facility] place to live 01/26/2024 Education Answer [...] CDT Appointment Department of Laboratory Medicine in [place], [place] [address] [place] [phone] Malik Fierro M.B.B.S. [address] [place] [address] 04/07/2024 10:30 AM CDT Clinical Communication Virtual Review in [place], [place] 200 [place] [phone] 04/11/2024 9:00 AM CDT Telemedicine Division of Hematology in [place], [place] [address] [place] [phone] Malik Fierro M.B.B.S. [address] [place] [phone] 04/21/2024 1:30 PM CDT Appointment Department of Laboratory Medicine in [place] [address] [place] [phone] Ludmila Glaser APRN, C.N.P., M.S. [address] [place] [phone] 05/02/2024 10:45 AM CDT Clinical Communication Virtual Review in [place], [place] 200 [place] [phone] 05/04/2024 8:15 AM CDT Appointment Department of Radiology, [facility], in [place], [place] [address] [place] [phone] Shobha Greene APRN, C.N.P., M.S.N. [address] [place] [phone] 05/04/2024 3:20 PM CDT Office Visit Department of Oncology in [place], [place] [address] [place] [phone] Shobha Greene APRN, C.N.P., M.S.N. [address] [place] [phone] 05/05/2024 9:00 AM CDT Appointment Department of Radiation Oncology in [place], [place] [address] [place] [phone] Anabel Medeiros M.D., Ph.D. [address] [place] [phone] documented as of this encounter Visit Diagnoses Diagnosis Secondary Malignant Neoplasm Lung Left (HCC)- Primary Malignant Neoplasm Of Ovary Laterality Unknown (HCC) documented in this encounter Additional Health Concerns Assessment Noted Time PHQ-9 Depression Total Score: 4 09/11/20 16 9:23 AM PUBLICITY EXPERT documented as of this encounter Care Teams Physician President Relationship Specialty Start Date End Date Sonia Schneider P.A.-C. [address] [place] [phone] PCP - General 10/16/22 documented as of this encounter
--- OUTSIDE RECORDS SUMMARY | 2024-03-21 21:20 | XMS_ITS | Encounter Summary ---
Author Organization [facility] Address [address] [place] [address] Care Team Providers Care Advertising Manager Name Role Phone Sonia Schneider P.A.-C. Primary Care Provider Reason for Referral * Outpatient (Routine) - Authorized Specialty Diagnoses / Procedures Referred By Erick handy Referred To Contact Video Medicine Diagnoses Malignant Neoplasm Of Ovary Left (HCC) Malik Fierro M.B.B.S. [address] [place] [phone] [facility] Referral ID Status Reason Start Date Expiration Date V isits Requested Visits Authorized [id number] Authorized 02/12/2024 08/13/2025 1 1 Encounter Details Date Type Department Care Team (Late st Contact Info) Description 02/12/2024 Orders Only Division of Hematology in [place], [place] [address] [place] [phone] Malik Fierro M.B.B.S. [address] [place] [phone] Malignant Neoplasm Of Ovary Left (HCC) (Primary Dx) Social History Tobacco Use Types Packs/Day Years Used Date Smoking Tobacco: Former Cigarettes 1 32.3 0 10/12/1969 - 2002 Smokeless Tobacco: Never Alcohol Use Standard Drinks/Week Comments No 0 (1 standard drink = 0.6 oz pur e alcohol) [facility] Utilities Answer Date Recorded In the past 12 months has th e electric, gas, oil, or water company [...] often do you attend chur ch or restorationist services? Never 11/06/2022 Do you belong to any clubs o r organizations such as roman catholic groups, unions, fraternal or athletic groups, or [...] Answer Date Recorded PHQ-2 Score 0 11/17/2023 [facility] of Occupat ional [facility] - Occupational Stress Questionnaire Answer Date [...] your living situation today? I have a [facility] place to live 01/26/2024 Education Answer [...] CDT Appointment Department of Laboratory Medicine in [place], [place] [address] [place] [phone] Malik Fierro M.B.B.S. [address] [place] [phone] 04/07/2024 10:30 AM CDT Clinical Communication Virtual Review in [place], [place] 200 [place] [phone] 04/11/2024 9:00 AM CDT Telemedicine Division of Hematology in [address] [phone] Malik Fierro M.B.B.S. [address] [place] [phone] 04/21/2024 1:30 PM CDT Appointment Department of Laboratory Medicine in [place], [place] [address] [place] [phone] Ludmila Glaser APRN, C.N.P., M.S. [address] [place] [phone] 05/02/2024 10:45 AM CDT Clinical Communication Virtual Review in [place], [place] 200 [place] [phone] 05/04/2024 8:15 AM CDT Appointment Department of Radiology, [facility], in [place], [place] [address] [place] [phone] Shobha Greene APRN, C.N.P., M.S.N. [address] [place] [phone] 05/04/2024 3:20 PM CDT Office Visit Department of Oncology in [place], [place] [address] [place] [phone] Shobha Greene APRN, C.N.P., M.S.N. [address] [place] [phone] 05/05/2024 9:00 AM CDT Appointment Department of Radiation Oncology in [place], [place] [address] [place] [phone] Anabel Medeiros M.D., Ph.D. [address] [place] [phone] Scheduled Referrals Name Type Priority Associated Diagnoses Orde r Schedule Video anyplace visit Outpatient Referral Routine Malignant Neoplasm Of Ovary Left (HCC) Expected: 04/13/2024, Expires: 05/14/2025 documented as of this encounter Visit Diagnoses Diagnosis Malignant Neoplasm Of Ovary Left (HCC)- Primary documented in this encounter Additional Health Concerns Assessment Noted Time PHQ-9 Depression Total Score: 4 09/11/20 16 9:23 AM LAWN MOWER documented as of this encounter Care Teams Advertising Manager Relationship Specialty Start Date End Date Sonia Schneider P.A.-C. [address] [place] [phone] PCP - General 10/16/22 documented as of this encounter
--- OUTSIDE RECORDS SUMMARY | 2024-03-21 21:20 | XMS_ITS | Referral Summary ---
Author Organization [facility] Address [address] [place] [address] Care Team Providers Care Chemistry Specialist Name Role Phone Sonia Schneider P.A.-C. Primary Care Provider Source Comments Patient records contain information from all sites at [facility]. For routine questions regarding patient records, call [phone] during business hours, M-F 8:00 AM - 5:00 PM Central Time. Record requests for emergency care only can be directed to [phone] at any time.[facility] Encounters Date Type Department Care Team Description 03/10/2024 1:12 PM CDT - 03/10/2024 11:59 PM CDT Hospital Encounter Department of Radiology in [place], [place] [address] [address] Sonia Schneider P.A.-C. Hyperparathyroidism Primary (HCC) Discharge Disposition: Home or Self Care 03/10/2024 1:10 PM CDT - 03/10/2024 1:11 PM CDT Hospital Encounter Department of Radiology in [place], [place] [address] [phone] Sonia Schneider P.A.-C. Hyperparathyroidism Primary (HCC) Discharge Disposition: Home or Self Care 02/19/2024 Clinical Communication Department of Radiation Oncology in [place], [place] [address] [place] [address] Julienne Bird APRN, C.N.PXuan, D.N.P. 02/19/2024 Orders Only Department of Radiation Oncology in [place], [place] [address] [place] [phone] Julienne Bird APRN, C.N.PXuan, D.N.P. Secondary Malignant Neoplasm Lung Left (HCC) (Primary Dx); Malignant Neoplasm Of Ovary Laterality Unknown (HCC) 02/12/2024 Orders Only Division of Hematology in [place], [place] [address] [place] [phone] Malik Fierro M.B.B.S. Malignant Neoplasm Of Ovary Left (HCC) (Primary Dx) 02/09/2024 Clinical Communication Division of Hematology in [address] [phone] Malik Fierro M.B.B.S. Scheduling 02/02/2024 Orders Only Division of Hematology in [address] [address] Malik Fierro M.BXuanB.S. Myelodysplastic Syndrome (HCC) (Primary Dx) 02/02/2024 11:00 AM CDT - 02/02/2024 1:08 PM CDT Hospital Encounter Department of Radiation Oncology in [address] [phone] Anabel Medeiros M.D., Ph.D. Malignant Neoplasm Of Ovary Left (HCC) (Primary Dx); Secondary Malignant Neoplasm Lung Left (HCC) 02/02/2024 10:20 AM CDT Office Visit Department of Oncology in [place], [place] [address] [place] [phone] Shobha Greene APRN, Jacquelyn.N.P., M.S.N. Malignant Neoplasm Of Ovary Laterality Unknown (HCC) (Primary Dx) 02/01/2024 11:15 AM CDT Telemedicine Division of Rheumatology in [address] [phone] Ludmila Glaser APRN, C.N.P., M.S. Medication Therapy Care Home Not Anticoagulant (Primary Dx); Arthritis Rheumatoid (HCC) 01/29/2024 1:52 PM CDT - 01/29/2024 11:59 PM CDT Hospital Encounter Department of Radiology, [facility], in [place], [place] [address] [place] [phone] Shobha Greene APRN, C.N.Sebastian., M.S.N. Malignant Neoplasm Of Ovary Laterality Unknown (HCC) Discharge Disposition: Home or Self Care 01/25/2024 11:45 AM CDT Clinical Communication Virtual Review in [place], [place] [address] [place] [address] 01/15/2024 Clinical Communication Division of Rheumatology in [address] [phone] Eli Chua R.N. Lab Monitoring 01/14/2024 10:20 AM CDT - 01/14/2024 11:59 PM CDT Hospital Encounter Department of Laboratory Medicine in [address] [phone] Ludmila Glaser APRN, C.N.P., M.S. Arthritis Rheumatoid (HCC); Medication Therapy Human Resource Advisor Not Anticoagulant; Deficiency Vitamin D; Deficiency Vitamin B12; Hypercholesterolemia; Hypertension And Chronic Kidney Disease Stage 2 Discharge Disposition: Home or Self Care 01/10/2024 Refill Department of Community Internal Medicine in [address] [address] Sonia Schneider P.A.-C. Med Refill 01/07/2024 11:50 AM CDT - 01/07/2024 11:59 PM CDT Hospital Encounter Department of Laboratory Medicine in [address] [phone] Denise Gonzalez P.A.-C., P.A. Symptom Urinary Discharge Disposition: Home or Self Care 01/07/2024 1:00 PM CDT Telemedicine Department of Family Medicine, [facility], in [address] [place] [phone] Denise Gonzalez P.A.-C., P.A. Pain Back Lumbar (Primary Dx); Symptom Urinary 01/07/2024 Nurse Triage Department of Community Internal Medicine in [place], [place] [address] [place] [phone] Paige Ruiz R.N. Back Pain 12/30/2023 Refill Department of Community Internal Medicine in [place], [place] [address] [place] [phone] Sonia Schneider P.A.-C. Med Refill from Last 3 Months Allergies No known active allergies Medications Medication [...] Overview: Added automatically from request for surgery [id number] Incontinence Urinary Stress Female 11/06/2022 Overview: Wears pads daily. 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 Hypertension And Chronic Kidney Disease Stage 2 07/15/2017 Stroke Cerebrovascular Accident Personal History 05/29/2015 Overview: Postoperative stroke in 2008. Fibromyalgia 03/09/2014 Overview: Stable. 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 Malignant Neoplasm Of Ovary Left 09/14/2012 Dry Eye Syndrome Bilateral 07/07/2012 Hypercholesterolemia 04/01/2011 Arthritis Rheumatoid 12/28/2008 Overview: Follows with Rheumatology at [place]. Annual eye exam at [facility]. Resolved Problems Problem Noted Date Diagnosed Date Resolved Date Myelodysplastic Syndrome 12/16/202204/2023 Bone Marrow Transplant Failure 01/28/2022 02/06/2022 Mass Kidney 09/13/2019 05/11/2020 Overview: Added automatically from request for surgery [id number] Thrombocytopenia 06/06/2019 10/25/2019 Fatigue 06/06/2019 10/25/2019 Edema Lower Extremity 06/06/20192019 Ileus 12/01/2018 10/25/2019 Nausea And Vomiting 11/29/2018 10/25/19 20 Post Operative Nausea/Vomiting 11/29/2018 10/25/2019 Hypertension 04/01/2011 10/14/2018 Overview: Hypertension Malignant Neoplasm Of Ovary Laterality Unknown 04/01/2011 11/24/2022 Overview: Cancer of ovary left Neutropenia Drug Induced 01/18/2009 Immunizations Name Administration Dates Next Due Influenza, Injectable, Quadrivalent 09/25/2015 Influenza, Unspecified 08/26/2016,09/25/2015 PPSV23 11/23/2023(Deferred: Patient dec ision) RZV (SHINGRIX) 11/23/2023(Deferred: Patient dec ision) SARS-COV-2 (COVID-19) - PFIZ ER (Discontinued)(12 years or older) 11/23/2023(Deferred: Patient decision),12/10/2021 Td (Adult), adsorbed 11/23/2023(Deferred: Patien t decision) Tdap 11/09/2008 Zoster, Unspecified 11/23/2023(Deferred: Other) Social History Tobacco Use Types Packs/Day Years Used Date Smoking Tobacco: Former Cigarettes 1 32.3 0 10/12/1969 - 2002 Smokeless Tobacco: Never Tobacco Cessation:Counseling Given: Not Answered Alcohol Use Standard Drinks/Week Comments No 0 (1 standard drink = 0.6 oz pur e alcohol) [facility] Utilities Answer Date Recorded In the past 12 months has e [employer] [place], oil, or water [employer] threatened to shut off services in your [...] often do you attend chur ch or sikh services? Never 11/06/2022 Do you belong to any clubs o r organizations such as jain groups, unions, fraternal or athletic groups, or [...] Answer Date Recorded PHQ-2 Score 0 11/17/2023 [facility] Occupat ional Health - Occupational Stress Questionnaire [...] your living situation today? I have a [facility] place to live 01/26/2024 Education [...] DT Respiratory Rate 12 11/23/2023 10:02 AM NEWS PRODUCER Oxygen Saturation 94% 02/02/2024 10:40 AM CDT [...] CDT Appointment Department of Laboratory Medicine in [place], [place] [address] [place] [address] Malik Fierro M.B.B.S. [address] [place] [phone] 04/07/2024 10:30 AM CDT Clinical Communication Virtual Review in [place], [place] [address] [place] [address] 04/11/2024 9:00 AM CDT Telemedicine Division of Hematology in [place], [place] [address] [place] [phone] Malik Fierro M.B.B.S. [address] [place] [phone] 04/21/2024 1:30 PM CDT Appointment Department of Laboratory Medicine in [place], [place] [address] [place] [address] Ludmila Glaser APRN, Jacquelyn.N.P., M.S. [address] [place] [phone] 05/02/2024 10:45 AM CDT Clinical Communication Virtual Review in [place], [place] [address] [place] [address] 05/04/2024 8:15 AM CDT Appointment Department of Radiology, [facility], in [place], [place] [address] [place] [phone] Shobha Greene APRN, C.N.P., M.S.N. [address] [place] [phone] 05/04/2024 3:20 PM CDT Office Visit Department of Oncology in [place], [place] [address] [place] [phone] Shobha Greene APRN, C.N.P., M.S.N. [address] [place] [phone] 05/05/2024 9:00 AM CDT Appointment Department of Radiation Oncology in [place], [place] [address] [place] [phone] Anabel Medeiros M.D., Ph.D. [address] [place] [phone] Medical Devices Implanted Type Area Engineering Mgr Device Identifier Shelf Expiration Date Model / Serial / Lot Clp Hrzn Ti 6 Clp Md-Lg Grn - [id number] Implanted:Qty : 1 on 11/24/2018 by Jose Daniel Rodriguez M.D. at [facility] Hardware e.g. pins/screws/ rods Weck (Div of [employer]) [id number] / / Clp Hrzn Ti 6 Clp Md-Lg Grn - [id number] Implanted:Qty : 1 on 11/24/2018 by Jose Daniel Rodriguez M.D. at [facility] Hardware e.g. pins/screws/ rods Weck (Div of [employer]) [id number] 11/19/2022 3200 / / [id number] Clp Hrzn Ti 6 Clp Md-Lg Grn - [id number] Implanted:Qty : 1 on 11/24/2018 by Jose Daniel Rodriguez M.D. at [facility] Hardware e.g. pins/screws/ rods Weck (Div of [employer]) [id number] 03/21/2023 3200 / / [id number] Clp Hrzn Ti 6 Clp Md Sam - [id number] Implanted:Qty : 1 on 11/24/2018 by Jose Daniel Rodriguez M.D. at [facility] Hardware e.g. pins/screws/ rods [employer] [id number] / / Clp Hrzn Ti 6 Clp Sm Red - [id number] Implanted:Qty : 1 on 11/24/2018 by Jose Daniel Rodriguez M.D. at [facility] Hardware e.g. pins/screws/ rods Weck (Div of [employer]) [id number] / / Clp Hmol Plmr Md - [id number] Implanted:Qty : 1 on 12/06/2019 by Bola Villa M.D. at [facility] Hardware e.g. pins/screws/ rods [employer] [id number] 12/28/2023 [id number] / / [id number] Clp Hmol Plmr Md - [id number] Implanted:Qty : 1 on 12/06/2019 by Bola Villa M.D. at [facility] Hardware e.g. pins/screws/ rods [employer] [id number] 02/02/2024 [id number] / / [id number] Clp Hmol Plmr Md - [id number] Implanted:Qty : 1 on 12/06/2019 by Bola Villa M.D. at [facility] Hardware e.g. pins/screws/ rods [employer] [id number] 04/04/2024 [id number] / / [id number] Clp Lpr Abs Sut - [id number] Implanted:Qty : 1 on 12/06/2019 by Bola Vlila M.D. at [facility] Hardware e.g. pins/screws/ rods [employer] [id number] 01/09/2022 XC200 / / [id number] Clp Hmol Pl Md - [id number] Implanted:Qty : 1 on 12/06/2019 by Bola Villa M.D. at [facility] Hardware e.g. pins/screws/ rods [employer] [id number] 04/04/2024 [id number] / / [id number] Clp Lpr Abs Sut - [id number] Implanted:Qty : 1 on 12/06/2019 by Bola Villa M.D. at [facility] Hardware e.g. pins/screws/ rods [employer] [id number] 05/11/2022 XC200 / / [id number] Clp Lpr Abs Sut - [id number] Implanted:Qty : 1 on 12/06/2019 by Bola Villa M.D. at [facility] Hardware e.g. pins/screws/ rods [employer] [id number] 05/11/2022 XC200 / / [id number] Stnt Uret Cls Tp Dbl 7fx24 - [id number] Implanted:Qty : 1 on 11/24/2018 by Jose Daniel Rodriguez M.D. at [facility] Ureteral Stent [facility] [id number] / / [id number] Procedures Procedure Name Priority Date/Time Associated Diagnosis [...] Routine 01/14/2024 10:35 AM CDT Medication Therapy Care Home Not Anticoagulant ASPARTATE AMINOTRANSFERASE (AST), S/P Routine 01/14/2024 10:35 AM CDT Medication Therapy Human Resource Advisor Not Anticoagulant CBC WITH DIFFERENTIAL, B Routine 01/14/2024 10:35 AM CDT Medication Therapy Care Home Not Anticoagulant C-REACTIVE PROTEIN (CRP), S/P Routine 01/14/2024 10:35 AM CDT Arthritis Rheumatoid (HCC) SEDIMENTATION RATE, B Routine 01/14/2024 10:35 AM CDT Arthritis Rheumatoid (HCC) [place] URINALYSIS AUTO W MICRO Routine 01/07/2024 11:58 [...] Bone Mineral Density (BMD) analysis performed on Cater to u with serial number [id number]. COMPARISON: Serial Comparisons Left Total Hip results: [...] images and graphs, is available in [employer]. In the absence of [...] Bone Mineral Density (BMD) analysis performed on Cater to u withserial number [id number]. COMPARISON: Serial Comparisons Left Total Hip results: [...] report, including images and graphs,is available in [employer]. In the absence of other causes of [...] appropriate imagestored in the BMD study in [facility]), the calculated ten year probability offracture is: FRAX Risk Factors: Rheumatoid Arthritis FRAX (10 yr probability) adjusted for TBS: Major Osteoporotic Fracture: 13.3 % Hip Fracture: 2.1 % IMPRESSION: Low bone density (Osteopenia) AP Spine (region: L1-L4 (L3)) Low bone density (Osteopenia) DualFemur (region: Total Left) Low bone density (Osteopenia) DualFemur (region: Total Right) Sonia Schneider P.A.-C. IMG DXA PROCEDU RES * BMD Bone Density Radius (03/10/2024 1:48 PM CDT) Anatomical Region Laterality Modality Forearm, Wrist, Nuclear Medi cine RST LOS, Musculoskeletal ARZ LOS, Muskuloskeletal FLA LOS N/A Radio graphic Imaging Impressions 03/10/2024 2:47 PM CDT Osteoporosis Left Forearm (region: Radius 33%) Narrative 03/10/2024 2:47 PM CDT EXAM: ??BMD BONE DENSITY RADIUS Bone Mineral Density (BMD) analysis performed on Cater to u with serial number [id number]. ? FINDINGS: Left Radius: 1/3 Radius: BMD = 0.661 g/cm2 T-score = -2.6 ?Z-score = -0.8 Please note: A more comprehensive DXA report, including images and graphs, is available in [facility]. ?In the absence of other causes of [...] Bone Mineral Density (BMD) analysis performed on Cater to u withserial number [id number]. FINDINGS: Left Radius: 10/14 Radius: BMD = 0.661 g/cm2 T-score = -2.6 Z-score = -0.8 Please note: A more comprehensive DXA report, including images and graphs,is available in [employer]. In the absence of other causes of [...] Forearm (region: Radius 33%) Sonia Schneider P.A.-C. [facility] DXA PROCEDU RES * CT Abdomen Pelvis [...] in abdomen and pelvis. Shobha Greene APRN C.N.PXuan, M.S.N. IM G CT PROCEDURES * CT [...] Sonia Schneider P.A.-C. LAB BLOOD ADD-O N [facility] [address] [place] [address], [facility] OWAT [facility] in [place] [address] [place] [address] * Vitamin D, Immunoassay, Total, Serum (01/14/2024 10:35 AM CDT) Vitamin D, Immunoassay, Total, S 55 20 - 80 ng/mL 01/14/2024 7:51 PM CDT [facility] Comment: Interpretation: 51-80 ng/mL (increased risk of hypercalciuria) Optimum levels within the healthy population are 20-50, patients with bone disease may benefit from high levels within this range Blood 01/14/2024 10:3 5 AM CDT 01/14/2024 7:09 PM CDT Sonia Schneider P.A.-C. LAB BLOOD ADD-O N [facility] [place] [address], [facility] in [place] [address] [place] [address] * Sedimentation Rate (01/14/2024 10:35 AM CDT) Pathologist [facility] Sedimentation Rate, B 14 0 - 29 mm/1 h 01/14/2024 4:02 PM CDT [facility] Blood (Blood, Venous) 01/14/2024 10:35 AM CDT 01/14/2024 3:35 PM CDT Jacquelyn Roman APRN.N.P., M.S. LAB BLOOD ADD-ON [facility] [address] [place] [address], [facility] - [facility] [address] [place] [address] * (ABNORMAL) CBC with Differential, Blood (01/14/2024 10:35 AM CDT) Pathologist [facility] Hemoglobin 13.6 11.6 - 15.0 g/dL 01/14/2024 [...] CDT 01/14/2024 10:35 AM CDT Ludmila Glaser APRN C.N.P., M.S. LAB BLOOD ADD-ON [facility] [address] [place] [address], [facility] FB60 [facility] in [place] [address] [place] [address] * (ABNORMAL) CRP (C-Reactive Protein) (01/14/2024 10:35 AM CDT) C-Reactive Protein (CRP), P 11.6(H) <5.0 mg/L 01/14/2024 1:52 PM CDT OW[facility] Blood (Blood, Venous) 01/14/2024 10:35 AM CDT 01/14/2024 12:59 PM CDT Ludmila Glaser APRN, C.N.P., M.S. LAB BLOOD ADD-ON [facility] [address] [place] [address], [place] [facility] [place] [address] [place] [address] * ALT (Alanine Aminotransferase) (01/14/2024 10:35 AM CDT) Alanine Aminotransferase (ALT), P 21 7 - 45 U/L 01/14/2024 1:52 PM CDT OW[facility] Blood (Blood, Venous) 01/14/2024 10:35 AM CDT 01/14/2024 12:59 PM CDT Ludmila Glaser APRN, C.N.P., M.S. LAB BLOOD ADD-ON [facility] [address] [place] [address], [place] [facility] [place] [address] [place] [address] * AST (Aspartate Aminotransferase) (01/14/2024 10:35 AM CDT) Aspartate Aminotransferase (AST), P 30 8 - 43 U/L 01/14/2024 1:52 PM CDT OWAT Blood (Blood, Venous) 01/14/2024 10:35 AM CDT 01/14/2024 12:59 PM CDT Ludmila Glaser APRN, C.N.P., M.S. LAB BLOOD ADD-ON [facility] [address] [place] [address], [place] [facility] [place] [address] [place] [address] * Vitamin B12 Assay (01/14/2024 10:35 AM CDT) Pathologist [facility] Vitamin B12 Assay, S 569 232 - 1245 ng/L 01/14/2024 6:52 PM CDT [facility] Comment: Biotin has been identified by the jewelry engraver as a potential interfering substance. Higher concentrations of biotin may be found in multivitamins, hair/nail supplements, and workout supplements. If the result does not match clinical observations, repeat testing after patient refrains from the use of supplements for at least 12 hours. Blood (Blood, Venous) 01/14/2024 10:35 AM CDT 01/14/2024 3:35 PM CDT Sonia Schneider P.A.-C. LAB BLOOD ADD-O N [facility] [address] [place] [address], [facility] [address] [place] [address] * (ABNORMAL) Basic Metabolic Panel (01/14/2024 10:35 AM CDT) Pathologist [facility] Potassium, P 4.2 3.6 - 5.2 mmol/L [...] Sonia Schneider P.A.-C. LAB BLOOD ADD-O N [facility] [address], [place] [address], [facility] OWAT [facility] [place] [address], [place] [address] * (ABNORMAL) Urinalysis with Microscopic if Indicated [...] 8.0 01/07/2024 12:07 PM CDT FB60 Specific [place] 1.015 1.001 - 1.035 01/07/2024 12:07 PM CDT FB60 Urobilinogen 0.2 0.2 - 1.0 mg/dL 01/07/2024 12:07 PM CDT FB60 Urine (Urine, Midstream) 01/07/2024 11:58 AM CDT 01/07/2024 12:05 PM CDT Denise Gonzalez P.A.-C., P.A. LAB URINE ORDERABLES [facility] [address] [place] [address], [facility] FB[address] [address] * Microscopic Manual (01/07/2024 11:58 AM CDT) White Blood Cells 4-10 /hpf 01/07/2024 12:17 PM CDT FB60 Comment: ----REFERENCE VALUE---- Males: 0-3 Females: 0-10 Unknown: 0-10 Red Blood Cells Occ-2 0 - 2 /hpf 12:17 PM CDT FB60 Urine 01/07/2024 11:5 8 AM CDT 01/07/2024 12:05 PM CDT Denise Gonzalez P.A.-C., P.A. LAB URINE ORDERABLES [facility] [address] [place] [address], [facility] [address] [place] [address] * BI Breast Screening Bilateral with Tomosynthesis [...] Antibody,S Negative Unvaccinated : Negative; Vaccinated: Positive; [facility] Comment:Patient is presumed to be not immune to infection with HBV. HBs Antibody, Quantitative, S <5.00 Unvaccinated : <5.0; Vaccinated: >=12.0; MIU/ML [facility] HCV Ab, S Negative Negative [facility] Comment:Jfvkvn-[id number] rat io is <1.00. HBs Antigen, S Negative Negative [facility] HBc Total Ab, S Negative Negative [facility] 02/17/2013 8:48 AM CDT 02/17/2013 8:48 AM CDT Ludmila Glaser APRN, C.N.P., M.S. LAB MICROBIOLOGY - BLOOD ORDERABLES [facility] [address] [place] [address], [facility] from Last 3 Months or Most Recently Relevant to Health Maintenance Advance Directives For more information, please contact: [phone] * Full Code (Latest Code Status on [...] Due to: Not medically appropriate Care Teams Chemistry Specialist Relationship Specialty Start Date End Date Sonia Schneider P.A.-C. [address] [place], [place] [id number] Elizabeth [id number] PCP - General 10/16/22
--- OUTSIDE RECORDS SUMMARY | 2024-03-21 21:20 | XMS_ITS | Encounter Summary ---
Author Organization [facility] Address [address] [place] [address] Care Team Providers Care Inspecting Machine Adjuster Name Role Phone Sonia Schneider P.A.-C. Primary Care Provider Encounter Details Date Type Department Care Team (Late st Contact Info) Description 02/19/2024 Clinical Communication Department of Radiation Oncology in [place], [place] [address] [place] [phone] Julienne Bird, PAO, C.N.P., D.N.P. [address] [place] [phone] Social History Tobacco Use Types Packs/Day Years Used Date Smoking Tobacco: Former Cigarettes 1 32.3 0 10/12/1969 - 2002 Smokeless Tobacco: Never Alcohol Use Standard Drinks/Week Comments No 0 (1 standard drink = 0.6 oz pur e alcohol) [facility] Utilities Answer Date Recorded In the [...] How often do you attend chur or restorationism services? Never 11/06/2022 Do you belong to any clubs o r organizations such as amish groups, unions, fraternal or athletic groups, or [...] Answer Date Recorded PHQ-2 Score 0 11/17/2023 [facility] of Occupat ional Health - Occupational Stress [...] your living situation today? I have a [facility] place to live 01/26/2024 Education Answer [...] PM CDT documented as of this encounter Miscellaneous Notes * Telephone Encounter - Julienne Bird, PAO, C.N.P., D.N.P. - 02/19/2024 3:06 PM CDT I spoke with Ms. Miller. While she was on steroids for her RA, her shortness of breath that she had been experiencing seemedto improve. She states that now that she has completed the steroids, she is back to her baseline shortness of breath and there is some chest heaviness/tightness. This seems to be worse with activity.I would not expect her symptoms to be related to inflammation from previous radiation as we are now6+ most post completion. For now, I have recommended an albuterol inhaler that she can take every 4hrs as needed. I encouraged her to have the pharmacist give her a demonstration on how to use the inhaler given that she has never used one. She will try this out for a week. If her symptoms do not improve or they worsen, she is encouraged to contact our team. Pt agreeable to plan of care. Julienne Bird APRN, C.N.P., D.N.P. documented in this encounter Plan of Treatment Upcoming Encounters Date Type Department Care Team (Late st Contact Info) Description 04/05/2024 10:30 AM CDT Appointment Department of Laboratory Medicine in [address] [phone] Malik Fierro M.B.B.S. [address] [place] [phone] 04/07/2024 10:30 AM CDT Clinical Communication Virtual Review in [address] [phone] 04/11/2024 9:00 AM CDT Telemedicine Division of Hematology in [address] [phone] Malik Fierro M.B.B.S. [address] [place] [phone] 04/21/2024 1:30 PM CDT Appointment Department of Laboratory Medicine in [address] [phone] Ludmila Glaser APRN, C.N.P., M.S. [address] [place] [phone] 05/02/2024 10:45 AM CDT Clinical Communication Virtual Review in [place], [place] 200 [place] [address] 05/04/2024 8:15 AM CDT Appointment Department of Radiology, [facility], in [address] [phone] Shobha Greene APRN, C.NNelia., M.S.N. [address] [place] [phone] 05/04/2024 3:20 PM CDT Office Visit Department of Oncology in [address] [phone] Shobha Greene APRN, C.NNelia., M.S.N. [address] [place] [phone] 05/05/2024 9:00 AM CDT Appointment Department of Radiation Oncology in [address] [phone] Anabel Medeiros M.D., Ph.D. [address] [place] [phone] documented as of this encounter Visit Diagnoses Not on filedocumented in this encounter Additional Health Concerns Assessment Noted Time PHQ-9 Depression Total Score: 4 09/11/20 16 9:23 AM DREDGE BOAT ENGINEER documented as of this encounter Care Teams Inspecting Machine Adjuster Relationship Specialty Start Date End Date Sonia Schneider P.A.-C. [address] [place] [phone] PCP - General 10/16/22 documented as of this encounter
--- OUTSIDE RECORDS SUMMARY | 2024-03-21 21:20 | XMS_ITS ---
Author Organization [facility] Address [address] [place] [address] Care Team Providers Care Landcare Facilitator Name Role Phone Sonia Schneider P.A.-C. Primary Care Provider Active Problems Problem Noted Date Diagnosed Date Osteoporosis 03/18/2024 Overview: DEXA of radius February 2024. Hyperparathyroidism Primary 01/23/2024 Overview: Endocrinology consult in 2008. Parathyroid adenoma diagnosed on parathyroid sestamibi scan. Hypercalcemia 01/19/2024 Malignant Neoplasm Of Ovary Laterality Unknown 0 07/09/2023 Obstruction Intestinal 01/29/2023 Lesion Vagina 12/17/2022 Overview: Added automatically from request for surgery [id number] Incontinence Urinary Stress Female 11/06/2022 Overview: Wears pads daily. 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 Hypertension And Chronic Kidney Disease Stage 2 07/15/2017 Stroke Cerebrovascular Accident Personal History 05/29/2015 Overview: Postoperative stroke in 2008. Fibromyalgia 03/09/2014 Overview: Stable. She will continue with career development coordinator and acupuncture. Malignant Neoplasm Of Ovary Left 09/14/2012 Dry Eye Syndrome Bilateral 07/07/2012 Hypercholesterolemia 04/01/2011 Arthritis Rheumatoid 12/28/2008 Overview: Follows with Rheumatology at [place]. Annual eye exam at [facility]. Current Oncology Plans No current plan information found. Past Plans Flushes/Hydration Plan Name Start Date Discontinue Date Treatment Medications Discontinue Reason Plan Provider VASCULAR ACCESS PATENCY - PERIPHERAL INTRAVENOUS CATHETER AND RAPID INFUSION CATHETER 12/20/2018 08/12/2019 No medications scheduled. Therapy Complete - Hematology / Oncology Treatment 1 Plan Name Start Date Discontinue Date Treatment Medications Discontinue Reason Plan Provider Cycles CARBOplatin AUC 2 Weekly / PACLitaxel Weekly ( STEAM FINISHER ) 02/16/2019 09/17/2020 CARBOplatin (PARAPLATIN)CA RBOplatin (PARAPLATIN) IVPB (BY AUC) in 250 mL (PARAPLATIN)PA CLitaxel (TAXOL)PACLIta xel (TAXOL) IVPB in 250 mL (TAXOL) Therapy Complete Shobha Greene APRN, C.N.P., M.S.N. 4 of 4 cycles started CARBOplatin AUC 6 / PACLitaxel ( STEAM FINISHER ) 9 02/15/2019 CARBOplatin (PARAPLATIN)CA RBOplatin (PARAPLATIN) IVPB (BY AUC) in 250 mL (PARAPLATIN)PA CLItaxel (TAXOL) IVPB in 500 mL (TAXOL) Not Tolerated Dmitry Albert M.D. 2 of 4 cycles completed Infusion Therapy 1 Plan Name Start Date Discontinue Date Treatment Medications Discontinue Reason Plan Provider FILGRASTIM (NEUPOGEN) AT INFUSION CENTER 02/17/2019 08/12/2019 No medications scheduled. Therapy Complete Shobha Greene APRN, C.N.P., M.S.N. 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
--- OUTSIDE RECORDS SUMMARY | 2024-03-21 21:20 | XMS_ITS | Encounter Summary ---
Author Organization [facility] Address [address] [place] [address] Care Team Providers Care Local Delivery Driver Name Role Phone Sonia Schneider P.A.-C. Primary Care Provider Reason for Visit * Reason Onset Date Comments Scheduling 02/09/2024 Encounter Details Date Type Department Care Team (Late st Contact Info) Description 02/09/2024 Clinical Communication Division of Hematology in [place], [place] [address] [place] [phone] Malik Fierro M.B.B.S. [address] [place] [phone] Scheduling Social History Tobacco Use Types Packs/Day Years Used Date Smoking Tobacco: Former Cigarettes 1 32.3 0 10/12/1969 - 2002 Smokeless Tobacco: Never Alcohol Use Standard Drinks/Week Comments No 0 (1 standard drink = 0.6 oz pur e alcohol) [facility] Utilities Answer Date Recorded In [...] How often do you attend chur or gnosticism services? Never 11/06/2022 Do you belong to any clubs o r organizations such as mandaeism groups, unions, fraternal or athletic groups, or [...] Answer Date Recorded PHQ-2 Score 0 11/17/2023 [facility] of Occupat ional Health - [...] your living situation today? I have a [facility] place to live 01/26/2024 Education Answer [...] CDT Appointment Department of Laboratory Medicine in [place], [place] [address] [place] [phone] Malik Fierro M.B.B.S. [address] [place] [phone] 04/07/2024 10:30 AM CDT Clinical Communication Virtual Review in [place], [place] [address] [place] [phone] 04/11/2024 9:00 AM CDT Telemedicine Division of Hematology in [place], [place] [address] [place] [phone] Malik Fierro M.B.B.S. [address] [place] [phone] 04/21/2024 1:30 PM CDT Appointment Department of Laboratory Medicine in [address] [phone] Ludmila Glaser APRN, C.N.P., M.S. [address] [place] [phone] 05/02/2024 10:45 AM CDT Clinical Communication Virtual Review in [place], [place] 200 [place] [address] 05/04/2024 8:15 AM CDT Appointment Department of Radiology, [facility], in [place], [place] [address] [place] [phone] Shobha Greene APRN, C.N.P., M.S.N. [address] [place] [phone] 05/04/2024 3:20 PM CDT Office Visit Department of Oncology in [place], [place] [address] [place] [phone] Shobha Greene APRN, C.N.P., M.S.N. [address] [place] [phone] 05/05/2024 9:00 AM CDT Appointment Department of Radiation Oncology in [place], [place] [address] [place] [phone] Anabel Medeiros M.D., Ph.D. [address] [place] [phone] documented as of this encounter Visit Diagnoses Not on filedocumented in this encounter Additional Health Concerns Assessment Noted Time PHQ-9 Depression Total Score: 4 09/11/20 16 9:23 AM COMPONENT ASSEMBLER documented as of this encounter Care Teams Local Delivery Driver Relationship Specialty Start Date End Date Sonia Schneider P.A.-C. [address] [place] [address] [place] [phone] PCP - General 10/16/22 documented as of this encounter
--- OUTSIDE RECORDS SUMMARY | 2024-03-21 21:21 | XMS_ITS | Encounter Summary ---
Author Organization [facility] Address [address] [place] [address] Care Team Providers Care Print Finishing Worker Name Role Phone oSnia Schneider P.A.-C. Primary Care Provider Reason for Visit * Appointment Request (Routine) - Closed Specialty Diagnoses / Procedures Referred By Erick handy Referred To Contact Family Medicine Referral ID Status Reason Start Date Expiration Date Visits Re quested Visits Authorized [id number] Closed 01/07/2024 01/06/2025 1 1 Encounter Details Date Type Department Care Team (Late st Contact Info) Description 01/07/2024 1:00 PM CDT Telemedicine Department of Family Medicine, [facility] [place] [facility], in [place], [place] [address] [place] [phone] Denise Gonzalez P.A.-Jacquelyn., P.A. [address] [place] [phone] Pain Back Lumbar (Primary Dx); Symptom Urinary Social History Tobacco Use Types Packs/Day Years Used Date Smoking Tobacco: Former Cigarettes 1 32.3 0 10/12/1969 - 2002 Smokeless Tobacco: Never Alcohol Use Standard Drinks/Week Comments No 0 (1 standard drink = 0.6 oz pur e alcohol) [facility] Utilities Answer Date Recorded In the past 12 months has Shook, gas, oil, or water [employer] threatened to shut off services in your home? No 11/17/2023 Humiliation, Afraid, Rape, and Kick questionnair e [...] often do you attend chur ch or sabianism services? Never 11/06/2022 Do you belong to [...] Answer Date Recorded PHQ-2 Score 0 11/17/2023 [facility] of Occupat ional Health - Occupational Stress [...] the money to buy more. Never true 11/17/19 24 Within the past 12 months, t he food you bought just didn't last and you didn't have money to get more. Never true 11/17/2023 PRAPARE - Transportation Answer Date Re corded In the past 12 months, has l ack of transportation kept you from medical appointments or from getting medications? No 03/2024 In the past 12 months, has l ack of transportation kept you from meetings, work, or from getting things needed for daily living? No 11/17/2023 Nutrition Answer Date Recorded Nutrition: EVOO Fat [...] your living situation today? I have a [facility] place to live 11/17/2023 Education Answer Date Recorded What is the highest level of school you have completed or the highest degree you have received? Some college, no degree 11/06/2022 Sex and Gender Information Value Date Recorded Sex Assigned at Female 08/02/2018 5:05 PM CDT Gender Identity Not on file Sexual Orientation Straight 08/02/2018 5: 05 PM CDT documented as of this encounter Progress Notes * Denise Gonzalez P.A.-Jacquelyn., P.A. - 01/07/2024 1:00 PM CDT SUBJECTIVE VIDEO VISIT Kylee Miller is a 68 y.o. female who was contacted today via Video Visit by Denise Gonzalez P.A.-C., P.A. in [facility] [place] to the patient in home. Patient is aware that video visit is limited by lack of physical exam. Patient and I will use shared decision making for visit. Patient identity was verified by verbal confirmation. This Video Visit was performed during the COVID-19 emergency, when many states had issued [id number] orders. CHIEF COMPLAINT / REASON FOR VIDEO VISIT Backache/bladder HISTORY OF PRESENT ILLNESS She is a 68 y/o with metastatic ovarian cancer, followed by [facility] and RA followed by [facility] who presents for Video on demand assessment due to low back ache and bladder pressure. She is concerned she may have a UTI as ones have presented with bladder pressure. OTC home UTI test strip showed nitrites. She denies any hematuria, dysuria, urinary frequency or urgency but has hx of UTIs that have presented with bladder pressure. She sees chiropractor for her low back and does acupuncture. This back pain feels similar to her baseline low back pain, but is lasting longer and she wanted to rule out UTI. Pain is resolved with tylenol. Nothing worsens the pain. She denies any fever, night sweats. She has no pain radiating into her legs. Urinalysis today is normal with 4-10 WBC, 0-2 RBC and no bacteria. CT Chest/Abdomen/Pelvis at last oncology visit 10/2023 negative for bone metastasis. Has upcoming med onc appt and CT chest, abdomen, pelvis mid January. The patient's pertinent medical problems, medications, allergies, past medial history, past surgical history, family history, social history, review of systems were reviewed at this visit. OBJECTIVE Pertinent findings able to be determined with the technological tools available are listed below: Physical Exam General: Alert, oriented, no acute distress. Respiratory: Patient appears to be breathing comfortably without accessory muscle use. Kylee Nelson is speaking in full sentences without shortness of breath or distress. Psychiatric: Mood, through content, behavior normal. ASSESSMENT / PLAN 1. Pain Back Lumbar 2. Symptom Urinary Reassured no UTI. She will continue with chiropractor, warm heat, tylenol. She declines muscle relaxer. She declines PT. She will follow up if symptoms worsen. - Urinalysis with Microscopic if Indicated; Future I personally spent a total of 20 minutes in Video visit time performing a review of the record and/or discussion with the patient/caregiver as described above. documented in this encounter Plan of Treatment Upcoming Encounters Date Type Department Care Team (Late st Contact Info) Description 04/05/2024 10:30 AM CDT Appointment Department of Laboratory Medicine in [address] [phone] Malik Fierro M.B.B.S. [address] [place] [phone] 04/07/2024 10:30 AM CDT Clinical Communication Virtual Review in [address] [phone] 04/11/2024 9:00 AM CDT Telemedicine Division of Hematology in [place], [place] [address] [place] [phone] Malik Fierro M.B.B.S. [address] [place] [phone] 04/21/2024 1:30 PM CDT Appointment Department of Laboratory Medicine in [address] [phone] Ludmila Glaser APRN, C.N.P., M.S. [address] [place] [phone] 05/02/2024 10:45 AM CDT Clinical Communication Virtual Review in [address] [phone] 05/04/2024 8:15 AM CDT Appointment Department of Radiology, [facility], in [place], [place] [address] [place] [phone] Shobha Greene APRN, C.N.P., M.S.N. [address] [place] [phone] 05/04/2024 3:20 PM CDT Office Visit Department of Oncology in [place], [place] [address] [place] [phone] Shobha Greene APRN, C.N.P., M.S.N. [address] [place] [phone] 05/05/2024 9:00 AM CDT Appointment Department of Radiation Oncology in [place], [place] [address] [place] [phone] Anabel Medeiros M.D., Ph.D. [address] [place] [phone] documented as of this encounter Results * (ABNORMAL) Urinalysis with Microscopic if Indicated [...] 8.0 01/07/2024 12:07 PM CDT FB60 Specific Quilcene 1.015 1.001 - 1.035 01/07/2024 12:07 PM CDT FB60 Urobilinogen 0.2 0.2 - 1.0 mg/dL 01/07/2024 12:07 PM CDT FB60 Urine (Urine, Midstream) 01/07/2024 11:58 AM CDT 01/07/2024 12:05 PM CDT Denise Gonzalez P.A.-C., P.A. LAB URINE ORDERABLES [facility] [address] [place] [address], [facility] FB60 [facility] in [place] [address] [place] [address] documented in this encounter Visit Diagnoses Diagnosis Pain Back Lumbar- Primary Symptom Urinary documented in this encounter Additional Health Concerns Assessment Noted Time PHQ-9 Depression Total Score: 4 09/11/20 16 9:23 AM PROCEDURE ANALYST documented as of this encounter Care Teams Print Finishing Worker Relationship Specialty Start Date End Date Sonia Schneider P.A.-C. [address] [place] [phone] PCP - General 10/16/22 documented as of this encounter
--- OUTSIDE RECORDS SUMMARY | 2024-03-21 21:21 | XMS_ITS | Encounter Summary ---
Author Organization [facility] Address [address] [place] [address] Care Team Providers Care Model Engine Mechanic Name Role Phone Sonia Schneider P.A.-C. Primary Care Provider Encounter Details Date Type Department Care Team (Late st Contact Info) Description 07/07/2012 Historical Ophthalmology [facility] Jose Barnes O.D. [address] [place] [phone] Social History Tobacco Use Types Packs/Day Years Used Date Smoking Tobacco: Never Assessed Sex and Gender Information Value Date Recorded Sex Assigned at Female 08/02/2018 5:05 PM CDT Gender Identity Not on file Sexual Orientation Straight 08/02/2018 5: 05 PM CDT documented as of this encounter Progress Notes * Jose Barnes O.D. - 07/07/2012 10:59 AM CDT Eye General CHIEF COMPLAINT Dryness both eyes HISTORY OF PRESENT ILLNESS Dryness; both eyes ; x many months; constantly; symptoms are moderate. Patient reports she has been taking Plaquenil for the past 3 months. IMPRESSION / REPORT / PLAN Consult requested by: Ludmila Glaser [id number] #1 Rheumatoid arthritis #2 Screen for ocular effect of systemic medication/plaquenil Get JOSUE 10-2, FAF, SD OCT #3 Dry eye syndrome Discussed lid hygiene and lubrication DIAGNOSIS #1 Rheumatoid arthritis #2 Screen for ocular effect of systemic medication/plaquenil #3 Dry eye syndrome CDM Reports - EYEGEN Id: [id number] Status: Fnl documented in this encounter Plan of Treatment Upcoming Encounters Date Type Department Care Team (Late st Contact Info) Description 04/05/2024 10:30 AM CDT Appointment Department of Laboratory Medicine in [place], [place] [address] [place] [phone] Malik Fierro M.B.B.S. [address] [place] [phone] 04/07/2024 10:30 AM CDT Clinical Communication Virtual Review in [place], [place] 200 [place] [phone] 04/11/2024 9:00 AM CDT Telemedicine Division of Hematology in [place], [place] [address] [place] [phone] Malik Fierro M.B.B.S. [address] [place] [phone] 04/21/2024 1:30 PM CDT Appointment Department of Laboratory Medicine in [address] [phone] Ludmila Glaser APRN, C.N.P., M.S. [address] [place] [phone] 05/02/2024 10:45 AM CDT Clinical Communication Virtual Review in [address] [phone] 05/04/2024 8:15 AM CDT Appointment Department of Radiology, [facility], in [place], [place] [address] [place] [phone] Shobha Greene APRN, C.N.P., M.S.N. [address] [place] [phone] 05/04/2024 3:20 PM CDT Office Visit Department of Oncology in [place], [place] [address] [place] [phone] Shobha Greene APRN, C.N.P., M.S.N. [address] [place] [phone] 05/05/2024 9:00 AM CDT Appointment Department of Radiation Oncology in [place], [place] [address] [place] [phone] Anabel Medeiros M.D., Ph.D. [address] [place] [phone] documented as of this encounter Visit Diagnoses Not on filedocumented in this encounter Additional Health Concerns Infection Onset Date Last Indicated Resolved Time COVID19 Pending 05/12/2022 05/13/2022 05/13/2022 1 1:48 PM CDT COVID19 Pending 06/20/2022 06/23/2022 06/24/2022 1 2:08 AM CDT documented as of this encounter Care Teams Model Engine Mechanic Relationship Specialty Start Date End Date Sonia Schneider P.A.-C. [address] [place], [place] [address], [place] [phone] PCP - General 10/16/22 documented as of this encounter
--- OUTSIDE RECORDS SUMMARY | 2024-03-21 21:21 | XMS_ITS | Encounter Summary ---
Author Organization [facility] Address [address] [place] [address] Care Team Providers Care Physician Primary Care Sports Medicine Name Role Phone Sonia Schneider P.A.-C. Primary Care Provider Reason for Visit * Reason Onset Date Comments Lab Monitoring 01/15/2024 Encounter Details Date Type Department Care Team (Latest Contact Info) Description 01/15/2024 Clinical Communication Division of Rheumatology in [place], [place] [address] [place] [address] Eli Chua RSheryl Lab Monitoring Social History Tobacco Use Types Packs/Day Years Used Date Smoking Tobacco: Former Cigarettes 1 32.3 0 10/12/1969 - 2002 Smokeless Tobacco: Never Alcohol Use Standard Drinks/Week Comments No 0 (1 standard drink = 0.6 oz pur e alcohol) [facility] Utilities Answer Date Recorded In the past 12 months has e [employer], gas, oil, or water [employer] threatened to shut off services in your [...] often do you attend chur ch or lutheran services? Never 11/06/2022 Do you belong to any clubs o r organizations such as shinto groups, unions, fraternal or athletic groups, or [...] Answer Date Recorded PHQ-2 Score 0 11/17/2023 [facility] of Occupat ional Health - [...] your living situation today? I have a [facility] place to live 11/17/2023 Education Answer [...] encounter Miscellaneous Notes * Telephone Encounter - Eli Chua RXuanN. - 01/15/2024 12:36 PM CDT Documentation note only, patient not contacted ASSESSMENT Rheumatology monitoring labs completed on 01/14/24 for leflunomide (Arava) monitoring were reviewed per provider order. Labs reviewed: absolute neutrophil count, ALT, AST, creatinine, hemoglobin, leukocytes, platelets Labs viewable in Labs Tab of Chart Review. PLAN Patient to continue with current plan of care. Patient next due for monitoring labs three months after last monitoring labs; these future lab orders were placed. documented in this encounter Plan of Treatment Upcoming Encounters Date Type Department Care Team (Late st Contact Info) Description 04/05/2024 10:30 AM CDT Appointment Department of Laboratory Medicine in [place], [place] [address] [place] [address] Malik Fierro M.B.B.S. [address] [place] [phone] 04/07/2024 10:30 AM CDT Clinical Communication Virtual Review in [place], [place] [address] [place] [address] 04/11/2024 9:00 AM CDT Telemedicine Division of Hematology in [place], [place] [address] [place] [phone] Malik Fierro M.B.B.S. [address] [place] [phone] 04/21/2024 1:30 PM CDT Appointment Department of Laboratory Medicine in [place], [place] [address] [place] [phone] Ludmila Glaser APRN, C.N.P., M.S. [address] [place] [phone] 05/02/2024 10:45 AM CDT Clinical Communication Virtual Review in [place], [place] [address] [place] [phone] 05/04/2024 8:15 AM CDT Appointment Department of Radiology, [facility], in [place], [place] [address] [place] [phone] Shobha Greene APRN, C.N.P., M.S.N. [address] [place] [phone] 05/04/2024 3:20 PM CDT Office Visit Department of Oncology in [place], [place] [address] [place] [phone] Shobha Greene APRN, C.N.P., M.S.N. [address] [place] [phone] 05/05/2024 9:00 AM CDT Appointment Department of Radiation Oncology in [place], [place] [address] [place] [phone] Anabel Medeiros M.D., Ph.D. 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 300 [facility] [phone] PCP - General 10/16/22 documented as of this encounter
--- OUTSIDE RECORDS SUMMARY | 2024-03-21 21:21 | XMS_ITS | Encounter Summary ---
Author Organization [facility] Address [address] [place] [address] Care Team Providers Care Heel Layer Name Role Phone Sonia Schneider P.A.-C. Primary Care Provider Encounter Details Date Type Department Care Team (Latest Contact Info) Description 01/14/2024 10:20 AM CDT - 01/14/2024 11:59 PM CDT Hospital Encounter Department of Laboratory Medicine in [place], [place] [address] [place] [phone] Ludmila Glaser, PAO, C.N.P., M.S. [address] [place] [address] Arthritis Rheumatoid (HCC); Medication Therapy Fpc Not Anticoagulant; Deficiency Vitamin D; Deficiency Vitamin B12; Hypercholesterolemi a; Hypertension And Chronic Kidney Disease Stage 2 Discharge Disposition: Home or Self Care Social History Tobacco Use Types Packs/Day Years Used Date Smoking Tobacco: Former Cigarettes 1 32.3 0 10/12/1969 - 2002 Smokeless Tobacco: Never Alcohol Use Standard Drinks/Week Comments No 0 (1 standard drink = 0.6 oz pur e alcohol) [facility] Utilities Answer Date Recorded In the past [...] How often do you attend chur or zoroastrianism services? Never 11/06/2022 Do you belong to any clubs o r organizations such as buddhism groups, unions, fraternal or athletic groups, or [...] Answer Date Recorded PHQ-2 Score 0 11/17/2023 [facility] Page of Occupat ional Health - Occupational Stress [...] your living situation today? I have a [facility] place to live 11/17/2023 Education Answer Date [...] (six) hours as needed for pain. 01/23/2023 Ldebora-Bi-Neal- SXuantherm (BACID) 1 billion cell- 250 mg per [...] a day as needed for dry eyes. sennosides-docusate sodium (SENOKOT-S) 8.6-50 mg per tablet Take 1 tablet by mouth at bedtime as needed for constipation. 01/23/2023 documented as of this encounter Plan of Treatment Upcoming Encounters Date Type Department Care Team (Late st Contact Info) Description 04/05/2024 10:30 AM CDT Appointment Department of Laboratory Medicine in [place], [place] [address] [place] [address] Malik Fierro M.B.B.S. [address] [place] [phone] 04/07/2024 10:30 AM CDT Clinical Communication Virtual Review in [place], [place] 200 [place] [address] 04/11/2024 9:00 AM CDT Telemedicine Division of Hematology in [place], [place] [address] [place] [phone] Malik Fierro M.B.B.S. [address] [place] [phone] 04/21/2024 1:30 PM CDT Appointment Department of Laboratory Medicine in [address] [phone] Ludmila Glaser APRN, C.N.P., M.S. [address] [place] [phone] 05/02/2024 10:45 AM CDT Clinical Communication Virtual Review in [place], [place] 200 [place] [address] 05/04/2024 8:15 AM CDT Appointment Department of Radiology, [facility], in [place], [place] [address] [place] [phone] Shobha Greene APRN, C.N.P., M.S.N. [address] [place] [phone] 05/04/2024 3:20 PM CDT Office Visit Department of Oncology in [place], [place] [address] [place] [phone] Shobha Greene APRN, C.NNelia., M.S.N. [address] [place] [phone] 05/05/2024 9:00 AM CDT Appointment Department of Radiation Oncology in [place], [place] [address] [place] [phone] Anabel Medeiros M.D., Ph.D. [address] [place] [phone] documented as of this encounter Procedures Procedure Name Priority Date/Time Associated Diagnosis Comments LIPID PANEL, S Routine 01/14/2024 10:35 AM CDT Hypercholesterolemia VITAMIN D, IMMUNOASSAY, TOTAL, S Routine 01/14/2024 10:35 AM CDT SEDIMENTATION RATE, B Routine 01/14/2024 10:35 AM CDT Arthritis Rheumatoid (HCC) CBC WITH DIFFERENTIAL, B Routine 01/14/2024 10:35 AM CDT Medication Therapy Negative Stripper Not Anticoagulant C-REACTIVE PROTEIN (CRP), S/P Routine 01/14/2024 10:35 AM CDT Arthritis Rheumatoid (HCC) ALANINE AMINOTRANSFERASE (ALT), S/P Routine 01/14/2024 10:35 AM CDT Medication Therapy Fpc Not Anticoagulant ASPARTATE AMINOTRANSFERASE (AST), S/P Routine 01/14/2024 10:35 AM CDT Medication Therapy Negative Stripper Not Anticoagulant VITAMIN B12 ASSAY, S Routine 01/14/2024 10:35 AM CDT Deficiency Vitamin B12 BASIC METABOLIC PANEL, S/P Routine 01/14/2024 10:35 AM CDT Hypertension And Chronic Kidney Disease Stage 2 documented in this encounter Results * Vitamin D, Immunoassay, Total, Serum (01/14/2024 10:35 AM CDT) Vitamin D, Immunoassay, Total, S 55 20 - 80 ng/mL 01/14/2024 7:51 PM CDT [facility] Comment: Interpretation: 51-80 ng/mL (increased risk of hypercalciuria) Optimum levels within the healthy population are 20-50, patients with bone disease may benefit from high levels within this range Blood 01/14/2024 10:3 5 AM CDT 01/14/2024 7:09 PM CDT Sonia ChandAGabrielCXuan LAB BLOOD ADD-O N Performing Organization Address [facility]/State/ZIP Co de Phone Number [facility] [address] [place] [address], [facility] [place] [address] [place] [address] * (ABNORMAL) Basic Metabolic Panel (01/14/2024 10:35 AM CDT) Potassium, P 4.2 3.6 - 5.2 mmol/L [...] Sonia Schneider P.A.-C. LAB BLOOD ADD-O N [facility] [address], [place] [address], [facility] [place] [facility] [place] [address], [place] [address] * Lipid Panel (01/14/2024 10:35 AM CDT) [...] Sonia Schneider P.A.-C. LAB BLOOD ADD-O N Performing Organization Address [facility] Co de Phone Number [facility] [address] [place] [address], [facility] OW[place] [facility] [place] [address] [place] [address] * Vitamin B12 Assay (01/14/2024 10:35 AM CDT) Vitamin B12 Assay, S 569 232 - 1245 ng/L 01/14/2024 6:52 PM CDT [facility] Comment: Biotin has been identified by the plant engineer as a potential interfering substance. Higher concentrations of biotin may be found in multivitamins, hair/nail supplements, and workout supplements. If the result does not match clinical observations, repeat testing after patient refrains from the use of supplements for at least 12 hours. Blood (Blood, Venous) 01/14/2024 10:35 AM CDT 01/14/2024 3:35 PM CDT Sonia Schneider P.A.-C. LAB BLOOD ADD-O N Performing Organization Address [facility]/ZIP Co de Phone Number [facility] [address] [place] [address], [place] AUST [facility] [address] [place] [address] * ALT (Alanine Aminotransferase) (01/14/2024 10:35 AM CDT) Alanine Aminotransferase (ALT), P 21 7 - 45 U/L 01/14/2024 1:52 PM CDT [facility] Blood (Blood, Venous) 01/14/2024 10:35 AM CDT 01/14/2024 12:59 PM CDT Bashir Roman APRNN.Sebastian., M.S. LAB BLOOD ADD-ON Performing Organization Address [facility] Co de Phone Number [facility] [address] [place] [address], [facility] [place] [address] [place] [address] * AST (Aspartate Aminotransferase) (01/14/2024 10:35 AM CDT) Aspartate Aminotransferase (AST), P 30 8 - 43 U/L 01/14/2024 1:52 PM CDT [facility] Blood (Blood, Venous) 01/14/2024 10:35 AM CDT 01/14/2024 12:59 PM CDT Jacquelyn Roman APRN.N.P., M.S. LAB BLOOD ADD-ON Performing Organization Address [facility] de Phone Number [facility] [address], [place] [address], [facility] [place] [address] [place] [phone] * (ABNORMAL) CBC with Differential, Blood (01/14/2024 [...] Glaser APRN, C.N.P., M.S. LAB BLOOD ADD-ON [facility] [address] [place] [address], [facility] FB60 [facility] [place] [address] [place] [address] * (ABNORMAL) CRP (C-Reactive Protein) (01/14/2024 10:35 AM CDT) [facility] C-Reactive Protein (CRP), P 11.6(H) <5.0 mg/L 01/14/2024 1:52 PM CDT [facility] Blood (Blood, Venous) 01/14/2024 10:35 AM CDT 01/14/2024 12:59 PM CDT Ludmila Glaser APRN, C.N.P., M.S. LAB BLOOD ADD-ON Performing Organization Address City/[facility]/ZIP Co de Phone Number [facility] [address] [place] [address], [place] [facility] [place] [address] [place] [address] * Sedimentation Rate (01/14/2024 10:35 AM CDT) Sedimentation Rate, B 14 0 - 29 mm/1 h 01/14/2024 4:02 PM CDT [facility] Blood (Blood, Venous) 01/14/2024 10:35 AM CDT 01/14/2024 3:35 PM CDT Ludmila Glaser APRN, C.N.P., M.S. LAB BLOOD ADD-ON Performing Organization Address 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 [address] [place] [address] [facility] [place] [address] PCP - General 10/16/22 documented as of this encounter
--- OUTSIDE RECORDS SUMMARY | 2024-03-21 21:21 | XMS_ITS | Encounter Summary ---
Author Organization [facility] Address [address] [place] [address] Care Team Providers Care Contract Runner Name Role Phone Sonia Schneider P.A.-C. Primary Care Provider Encounter Details Date Type Department Care Team (Late st Contact Info) Description 08/09/2012 Historical Ophthalmology [facility] Jose Barnes O.D. [address] [place] [address] Social History Tobacco Use Types Packs/Day Years Used Date Smoking Tobacco: Never Assessed Sex and Gender Information Value Date Recorded Sex Assigned at Female 08/02/2018 5:05 PM CDT Gender Identity Not on file Sexual Orientation Straight 08/02/2018 5: 05 PM CDT documented as of this encounter Progress Notes * Jose Barnes O.D. - 08/09/2012 7:31 AM CDT Eye Subsequent Visit HISTORY OF PRESENT ILLNESS Patient is here for testing to screen for ocular effect of systemic rx. Dr. Barnes will call/writewith results. Automated visual field completed. IMPRESSION / REPORT / PLAN The following tests have been completed and need interpretation. Salma visual field, SD-OCT No visual field defects noted No pigment layer defects noted #1 Rheumatoid arthritis #2 Screen for ocular effect of systemic medication/plaquenil No evidence of toxicity or contraindication to treatment Per 2011 guidelines, she will need to be rechecked when she has been using Plaquenil for 5 years, or the summer of 2016. CDM Reports - EYESV Id: [id number] Status: Fnl documented in this encounter Plan of Treatment Upcoming Encounters Date Type Department Care Team (Late st Contact Info) Description 04/05/2024 10:30 AM CDT Appointment Department of Laboratory Medicine in [address] [phone] Malik Fierro M.B.B.S. [address] [place] [phone] 04/07/2024 10:30 AM CDT Clinical Communication Virtual Review in [address] [phone] 04/11/2024 9:00 AM CDT Telemedicine Division of Hematology in [place], [place] [address] [place] [phone] Malik Fierro M.B.B.S. [address] [place] [phone] 04/21/2024 1:30 PM CDT Appointment Department of Laboratory Medicine in [address] [phone] Ludmila Glaser APRN, C.N.P., M.S. [address] [place] [phone] 05/02/2024 10:45 AM CDT Clinical Communication Virtual Review in [address] [phone] 05/04/2024 8:15 AM CDT Appointment Department of Radiology, [facility], in [place], [place] [address] [place] [phone] Shobha Greene APRN, C.N.P., M.S.N. [address] [place] [phone] 05/04/2024 3:20 PM CDT Office Visit Department of Oncology in [place], [place] [address] [place] [phone] Shobha Greene APRN, C.NAleida, M.S.N. [address] [place] [phone] 05/05/2024 9:00 AM CDT Appointment Department of Radiation Oncology in [place], [place] [address] [place] [phone] Anabel Medeiros M.D., Ph.D. [address] [place] [phone] documented as of this encounter Visit Diagnoses Not on filedocumented in this encounter Additional Health Concerns Infection Onset Date Last Indicated Resolved Time COVID19 Pending 05/12/2022 05/13/2022 05/13/2022 1 1:48 PM CDT COVID19 Pending 06/20/2022 06/23/2022 06/24/2022 1 2:08 AM CDT documented as of this encounter Care Teams Contract Runner Relationship Specialty Start Date End Date Sonia Schneider P.A.-C. [address] [place] [phone] PCP - General 10/16/22 documented as of this encounter
--- OUTSIDE RECORDS SUMMARY | 2024-03-21 21:21 | XMS_ITS | Encounter Summary ---
Author Organization [facility] Address [address] [place] [address] Care Team Providers Care Senior Product Marketing Manager Name Role Phone Sonia Schneider P.A.-C. Primary Care Provider Reason for Referral * Outpatient (Routine) - Authorized Specialty Diagnoses / Procedures Referred By Erick t Referred To Contact Oncology Jeanne Greene APRN, C.N.P., M.S.N. [address] [place] [phone] [facility] Referral ID Status Reason Start Date Expiration Date V isits Requested Visits Authorized [id number] Authorized 02/02/2024 08/03/2025 1 1 Scheduling Instructions Please schedule imaging prior to Medical Oncology return visit. Thank you. * MRI/CAT/PET Scan (Routine) - Authorized Specialty Diagnoses / Procedures Referred By Contestefani t Referred To Contact Radiology Diagnoses Malignant Neoplasm Of Ovary Laterality Unknown (HCC) Procedures CT Chest with IV Contrast Jeanne Greene APRN, C.N.P., M.S.N. [address] [place] [phone] [facility] Referral ID Status Reason Start Date Expiration Date V isits Requested Visits Authorized [id number] Authorized 02/02/2024 02/01/2025 1 1 * MRI/CAT/PET Scan (Routine) - Authorized Specialty Diagnoses / Procedures Referred By Contac t Referred To Contact Radiology Diagnoses Malignant Neoplasm Of Ovary Laterality Unknown (HCC) Procedures CT Abdomen Pelvis with IV Contrast Jeanne Greene APRN, C.N.P., M.S.N. [address] [place] [phone] [facility] Referral ID Status Reason Start Date Expiration Date V isits Requested Visits Authorized [id number] Authorized 02/02/2024 02/01/2025 1 1 Reason for Visit * Outpatient (Routine) - Closed Specialty Diagnoses / Procedures Referred By Contac t Referred To Contact Oncology Jeanne Greene APRN, C.N.P., M.S.N. [address] [place] [phone] [facility] Referral ID Status Reason Start Date Expiration Date Visits Re quested Visits Authorized [id number] Closed 10/30/2023 04/30/2025 1 1 Encounter Details Date Type Department Care Team (Late st Contact Info) Description 02/02/2024 10:20 AM CDT Office Visit Department of Oncology in [place], [place] [address] [place] [phone] Jeanne Greene APRN, C.NAleida, M.S.N. [address] [place] [phone] Malignant Neoplasm Of Ovary Laterality Unknown (HCC) (Primary Dx) Social History Tobacco Use Types Packs/Day Years Used Date Smoking Tobacco: Former Cigarettes 1 32.3 0 10/12/1969 - 2002 Smokeless Tobacco: Never Alcohol Use Standard Drinks/Week Comments No 0 (1 standard drink = 0.6 oz pur e alcohol) [facility] Utilities Answer Date Recorded In the [...] often do you attend chur ch or islam services? Never 11/06/2022 Do you belong to any clubs o r organizations such as presybeterian groups, unions, fraternal or athletic groups, or [...] Answer Date Recorded PHQ-2 Score 0 11/17/2023 [facility] - Occupational Stress Questionnaire Answer [...] 02/02/2024 10:40 AM C DT Respiratory Rate - - Oxygen Saturation 94% 02/02/2024 10:40 AM CDT Inhaled Oxygen Concentration - - Weight 84.5 kg (186 lb 4.6 oz) 02/02/2024 10:40 AM CDT Height 163.6 cm (5' 4.41) 02/02/2024 10:40 AM C DT Body Mass Index 31.57 02/02/2024 10:40 AM CDT documented in this encounter Progress Notes * Jeanne Greene APRN, C.N.P., M.S.N. - 02/02/2024 10:20 AM CDT SUBJECTIVE CHIEF COMPLAINT/PURPOSE OF VISIT Ms. Miller is a 69 y.o. woman with recurrent clear cell ovarian cancer Collaborating provider: Dr. Gonzales Rodriguez ([id number]) HISTORY OF PRESENT ILLNESS Ms. Miller is a very pleasant 69 y.o. woman with the following oncologic history: Oncology History Malignant Neoplasm Of Ovary Laterality Unknown (HCC) (Resolved) 09/2008 [facility] one Cdx testing revealed HRD-; SAWYER 6.8%; PRICILLA: TMB 5muts/mb; FGFR3- KMRPRR99I rearrangement; ARID1A Q553fs*70; PIK3CA I8232W; TP53 R280K subclonal; CQH721 amplification. 10/2008 Initial Diagnosis Experienced postmenopausal bleeding, and was evaluated by local celery wrapper, Dr. Steele, with D&C showed an endometrial [...] Chemotherapy CARBOplatin AUC 6 / PACLitaxel ( FINISHING RANGE SUPERVISOR ) Start Date: 12/20/2018 Initiated taxol at 140 mg/m2 due to previous difficulty with cytopenias. Recommended at least 3-4 cycles of chemotherapy and up to 6 cycles. She only received two cycles at this dose then reduced to weekly (See below). - 05/11/2019 Chemotherapy CARBOplatin AUC 2 Weekly / PACLitaxel Weekly ( FINISHING RANGE SUPERVISOR ) Start Date: 02/16/2019 4 cycles, missed last week of treatment due to counts. 12/06/2019 Surgery and Procedures ROBOTIC-ASSISTED PARTIAL NEPHRECTOMY. 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 05/16/2022 Biopsy/Pathology CT guided [...] Goal: Curative Planned Treatment Start Date: 07/22/2023 INTERVAL HISTORY: Ms. Miller presents today with her for a roughly 3 month follow-up visit for her ovarian cancer. She reports that recently she had started feeling more fatigued in general and experiencing joint aches. She has also noted intermittent episodes of low-grade temperature, reaching up to 99.5?? F. She did have the opportunity to meet with her Rheumatology team yesterday, and has started a prednisone taper. She notes with initiation of the steroid, she has started to feel overall better today.She does continue to note intermittent coughing and wheezing, which has been present since her radiation. She does have intermittent episodes coughing up a clear mucus. She otherwise feels she is eating and drinking without significant issue, denies urinary concerns, bowel changes, or vaginal bleeding/discharge. REVIEW OF SYSTEMS Pertinent items are noted in HPI; all other review of systems were negative. OBJECTIVE VITAL SIGNS Vitals Blood Pressure: (!) 170/81, Temperature: 36.3 ??C, Temp Source: Tympanic, Pulse Rate: 81, SpO2: 94 %, Height: 163.6 cm, Weight: 84.5 kg BP Readings from Last 1 Encounters: 02/02/24 (!) 170/81 Pulse Readings from Last 1 Encounters: 02/02/24 81 Temp Readings from Last 1 Encounters: 02/02/24 36.3 ??C (Tympanic) Rate your distress: 3 PHYSICAL EXAMINATION General: Alert and oriented, and in no acute distress. Able to ambulate on and off the exam table without difficulty. ECOG PS 1. Lymph: No palpable cervical, supraclavicular, axillary, and inguinal lymphadenopathy. Heart: Regular rate and rhythm. Lungs: Clear to auscultation bilaterally. Abdomen: Soft, non-tender, non-distended. Extremities: No pitting edema. No tenderness or erythema. Mental: Mood and affect appropriate for situation. DIAGNOSTICS: I reviewed the pertinent laboratory and diagnostic data. ASSESSMENT / PLAN #1 Recurrent clear cell ovarian cancer Ms. Miller presents today with her for a roughly 3 month follow-up visit for her ovarian cancer. She is now roughly 6 months post completion of her most recent treatment for metastatic disease. We reviewed results of her CT imaging, which revealed increasing consolidation in her left lung inthe area recent radiation, consistent with evolving radiation fibrosis. She understands that this does obscure the previously treated lung nodule in this region. There was notation of a small nodule in her right lung that has increased from 2 mm to 5 mm in size, concerning for metastasis. Other findings in her lungs are overall stable, and there is no evidence of recurrent or metastatic disease in her abdomen or pelvis. She continues to feel overall well, with exception fatigue and achy joints,which she attributes to her known rheumatoid arthritis. She has on a steroid taper in this regard as of yesterday, and notes symptoms are improving already. In regard to imaging, we did discuss concern that the increasing nodule could be metastatic disease. I did recommend that we have her repeat imaging again in 3 months for monitoring of this lesion. This will allow us to determine growth pattern, as well as be certain there are no additional areas of metastatic disease. We discussed at that time we can consider if there are additional localized therapies to be done versus consideration of systemic therapy if lesion continues to grow. I will also complete folate receptor testing and her 2testing in the interval to allow for additional considerations other than chemo if needed moving forward. She does note that it has been a couple of years since she had follow-up with Hematology, Nika will reach out to Dr. Fierro in this regard. She will also have follow-up with Dr. Medeiros in Radiat ion Oncology later today. Orders will be placed for her return in 3 months with repeat imaging. Sheagrees to reach out in the interval if she would have any new or concerning symptoms prior to this return visit. PATIENT EDUCATION Ready to learn, no apparent learning barriers were identified; learning preferences include listening. Explained diagnosis and treatment plan; patient expressed understanding of the content. documented in this encounter Miscellaneous Notes * Addendum Note - Jeanne Greene APRN, C.N.P., M.S.N. - 02/02/2024 10:20 AM CDTAddended by: JEANNE GREENE on: 02/04/2024 08:24 AM Modules accepted: Orders documented in this encounter Plan of Treatment Upcoming Encounters Date Type Department Care Team (Late st Contact Info) Description 04/05/2024 10:30 AM CDT Appointment Department of Laboratory Medicine in [address] [phone] Malik Fierro M.B.B.S. [address] [place] [phone] 04/07/2024 10:30 AM CDT Clinical Communication Virtual Review in [place], [place] 200 [place] [phone] 04/11/2024 9:00 AM CDT Telemedicine Division of Hematology in [address] [phone] Malik Fierro M.B.B.S. [address] [place] [phone] 04/21/2024 1:30 PM CDT Appointment Department of Laboratory Medicine in [place], [place] [address] [place] [phone] Ludmila Glaser APRN, C.N.P., M.S. [address] [place] [phone] 05/02/2024 10:45 AM CDT Clinical Communication Virtual Review in [place], [place] 200 [place] [phone] 05/04/2024 8:15 AM CDT Appointment Department of Radiology, [facility], in [address] [phone] Jeanne Greene APRN, C.NNelia., M.S.N. [address] [place] [phone] 05/04/2024 3:20 PM CDT Office Visit Department of Oncology in [place], [place] [address] [place] [phone] Jeanne Greene APRN, C.N.P., M.S.N. [address] [place] [phone] 05/05/2024 9:00 AM CDT Appointment Department of Radiation Oncology in [address] [phone] Anabel Medeiros M.D., Ph.D. [address] [place] [phone] Scheduled Orders Name Type Priority Associated Diagnoses Order Schedule CT Abdomen Pelvis with IV Contrast Imaging RAD - Routine (most inpatients and all outpatients) Malignant Neoplasm Of Ovary Laterality Unknown (HCC) Expected: 05/03/2024, Expires: 05/25/2026 CT Chest with IV Contrast Imaging RAD - Routine (most inpatients and all outpatients) Malignant Neoplasm Of Ovary Laterality Unknown (HCC) Expected: 05/03/2024, Expires: 05/25/2026 Folate Receptor Alpha (FOLR1), Semi-Quantitativ e Immunohistochemi stry, Manual Pathology and Cytology Add-On Malignant Neoplasm Of Ovary Laterality Unknown (HCC) Expected: 02/04/2024, Expires: 05/05/2025 Scheduled Referrals Name Type Priority Associated Diagnoses Orde r Schedule Oncology office visit (clinic) Outpatient Referral Routine Expected: 05/03/2024 (Approximate), Expires: 05/25/2026 documented as of this encounter Visit Diagnoses Diagnosis Malignant Neoplasm Of Ovary Laterality Unknown (HCC)- Primary documented in this encounter Additional Health Concerns Assessment Noted Time PHQ-9 Depression Total Score: 4 09/11/20 16 9: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 [address] [place] [phone] PCP - General 10/16/22 documented as of this encounter
--- OUTSIDE RECORDS SUMMARY | 2024-03-21 21:21 | XMS_ITS | Encounter Summary ---
Author Organization [facility] Address [address] [place] [address] Care Team Providers Care Quarrying Manager Name Role Phone Sonia Schneider P.A.-C. Primary Care Provider Encounter Details Date Type Department Care Team (Latest Contact Info) Description 01/07/2024 11:50 AM CDT - 01/07/2024 11:59 PM CDT Hospital Encounter Department of Laboratory Medicine in [place] [address] [place] [address] Denise Gonzalez PEarl-Jacquelyn., P.A. [address] [place] [phone] Symptom Urinary Discharge Disposition: Home or Self Care Social History Tobacco Use Types Packs/Day Years Used Date Smoking Tobacco: Former Cigarettes 1 32.3 0 10/12/1969 - 2002 Smokeless Tobacco: Never Alcohol Use Standard Drinks/Week Comments No 0 (1 standard drink = 0.6 oz pur e alcohol) [facility] Utilities Answer Date Recorded In the past 12 months has e [employer], gas, oil, or water [employer] threatened to shut off services in your [...] How often do you attend chur or sabianist services? Never 11/06/2022 Do you belong to any clubs o r organizations such as yazidi groups, unions, fraternal or athletic groups, or [...] Answer Date Recorded PHQ-2 Score 0 11/17/2023 [facility]at [facility] - Occupational Stress [...] your living situation today? I have a [facility] place to live 11/17/2023 Education Answer [...] by mouth daily. atorvastatin (LIPITOR) 10 mg tabletIndications:Hype rcholesterolemia TAKE ONE TABLET (10 MG TOTAL) BY MOUTH ONCE DAILY 90 tablet 3 12/30/2023 B complex-vitamins (BALANCE B-50) tablet Take 1 tablet by mouth daily. CHOLECALCIFEROL, VITAMIN D3, ORAL Take 3,000 Units by mouth daily. co-enzyme Q-10 30 mg capsule Take 30 mg by mouth daily. cranberry fruit extract (CRANBERRY CONCENTRATE ORAL) Take 2 tablets by mouth daily. hydroxychloroquine (PLAQUENIL) 200 mg tabletIndications:Arth ritis Rheumatoid (HCC) Take 1 tablet (200 mg total) by mouth 2 (two) times a day. 180 tablet 3 06/22/2023 ibuprofen (ADVIL,MOTRIN) 200 mg tablet Take 2 tablets (400 mg total) by mouth every 6 (six) hours as needed for pain. 01/23/2023 L.acidoph-Bi-B.bif -S.therm (BACID) 1 billion cell- 250 mg per tablet Take 1 tablet by mouth daily as needed. leflunomide (ARAVA) 10 mg tabletIndications:Arth ritis Rheumatoid (HCC) take one tablet by mouth [...] 02/01/2023 oxyCODONE (ROXICODONE) 5 mg immediate release tabletIndications:Acut e Pain Take 1 tablet (5 mg total) [...] at bedtime as needed for constipation. 01/23/2023 hydroCHLOROthiazide (HYDRODIURIL) 25 mg tabletIndications:Hype rtension And Chronic Kidney Disease Stage 2 Take 0.5 tablets (12.5 mg total) by mouth daily. 12/21/2023 01/11/2024 documented as of this encounter Plan of Treatment Upcoming Encounters Date Type Department Care Team (Late st Contact Info) Description 04/05/2024 10:30 AM CDT Appointment Department of Laboratory Medicine in [address] [phone] Malik Fierro M.B.B.S. [address] [place] [phone] 04/07/2024 10:30 AM CDT Clinical Communication Virtual Review in [address] [phone] 04/11/2024 9:00 AM CDT Telemedicine Division of Hematology in [address] [phone] Malik Fierro M.B.B.S. [address] [place] [phone] 04/21/2024 1:30 PM CDT Appointment Department of Laboratory Medicine in [address] [phone] Ludmila Glaser APRN, C.N.P., M.S. [address] [place] [phone] 05/02/2024 10:45 AM CDT Clinical Communication Virtual Review in [address] [phone] 05/04/2024 8:15 AM CDT Appointment Department of Radiology, [facility], in [address] [phone] Shobha Greene APRN, C.N.P., M.S.N. [address] [place] [phone] 05/04/2024 3:20 PM CDT Office Visit Department of Oncology in [place], [place] [address] [place] [phone] Shobha Greene APRN, C.N.P., M.S.N. [address] [place] [phone] 05/05/2024 9:00 AM CDT Appointment Department of Radiation Oncology in [place], [place] [address] [place] [phone] Anabel Medeiros M.D., Ph.D. [address] [place] [phone] documented as of this encounter Procedures Procedure Name Priority Date/Time Associated Diagnosis Comments URINALYSIS WITH MICROSCOPIC IF INDICATED, U Routine 01/07/2024 11:58 AM CDT Symptom Urinary UT URINALYSIS AUTO W MICRO Routine 01/07/2024 11:58 AM CDT documented in this encounter Results * Microscopic Manual (01/07/2024 11:58 AM CDT) White Blood Cells 4-10 /hpf 01/07/2024 12:17 PM CDT FB60 Comment: ----REFERENCE VALUE---- Males: 0-3 Females: 0-10 Unknown: 0-10 Red Blood Cells Occ-2 0 - 2 /hpf 12:17 PM CDT FB60 Urine 01/07/2024 11:5 8 AM CDT 01/07/2024 12:05 PM CDT Denise Gonzalez P.A.-C., P.A. LAB URINE ORDERABLES [facility] [address] [place] [address], [facility] FB60 [facility] in [place] [address] [place] [address] * (ABNORMAL) Urinalysis with Microscopic if Indicated [...] 8.0 01/07/2024 12:07 PM CDT FB60 Specific [place] 1.015 1.001 - 1.035 01/07/2024 12:07 PM CDT FB60 Urobilinogen 0.2 0.2 - 1.0 mg/dL 01/07/2024 12:07 PM CDT FB60 Urine (Urine, Midstream) 01/07/2024 11:58 AM CDT 01/07/2024 12:05 PM CDT Denise Gonzalez P.A.-C., P.A. 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 [address] [facility] [place] [phone] PCP - General 10/16/22 documented as of this encounter
--- OUTSIDE RECORDS SUMMARY | 2024-03-21 21:21 | XMS_ITS | Encounter Summary ---
Author Organization [facility] Address [address] [place] [address] Care Team Providers Care Bulk Mail Clerk Name Role Phone Sonia Schneider P.A.-C. Primary Care Provider Reason for Visit * Reason Comments Med Refill Encounter Details Date Type Department Care Team (Late st Contact Info) Description 01/10/2024 Refill Department of Community Internal Medicine in [place], [place] [address] [place] [address] Sonia Schneider P.A.-C. [address] [place] [phone] Med Refill Social History Tobacco Use Types Packs/Day Years Used Date Smoking Tobacco: Former Cigarettes 1 32.3 0 10/12/1969 - 2002 Smokeless Tobacco: Never Alcohol Use Standard Drinks/Week Comments No 0 (1 standard drink = 0.6 oz pur e alcohol) [facility] Utilities Answer Date Recorded In the [...] How often do you attend chur or oriental orthodox services? Never 11/06/2022 Do you belong to any clubs o r organizations such as muslim groups, unions, fraternal or athletic groups, or [...] your living situation today? I have a [facility] place to live 11/17/2023 Education Answer [...] encounter Miscellaneous Notes * Telephone Encounter - Emily Kay - 01/11/2024 12:08 PM CDT Nurse review: Med Refill Team is unable to forward request to provider; Discrepancy; Patient Med list shows take 0.5 tablets (12.5 mg total) by mouth daily, pharmacy is requesting TAKE ONE TABLET BY MOUTH ONCE EVERY DAY Primary Provider: Sonia Schneider P.A.-C. Requested Prescriptions Pending Prescriptions Disp Refills hydroCHLOROthiazide (HYDRODIURIL) 25 mg tablet [Pharmacy Med Name: HYDROCHLOROTHIAZIDE 25MG TABS] 90 tablet 3 Sig: TAKE ONE TABLET BY MOUTH ONCE EVERY DAY . documented in this encounter Plan of Treatment Upcoming Encounters Date Type Department Care Team (Late st Contact Info) Description 04/05/2024 10:30 AM CDT Appointment Department of Laboratory Medicine in [place], [place] [address] [place] [address] Malik Fierro M.B.B.S. [address] [place] [phone] 04/07/2024 10:30 AM CDT Clinical Communication Virtual Review in [address] [phone] 04/11/2024 9:00 AM CDT Telemedicine Division of Hematology in [address] [phone] Malik Fierro M.B.B.S. [address] [place] [phone] 04/21/2024 1:30 PM CDT Appointment Department of Laboratory Medicine in [address] [phone] Ludmila Glaser APRN, C.N.P., M.S. [address] [place] [phone] 05/02/2024 10:45 AM CDT Clinical Communication Virtual Review in [address] [phone] 05/04/2024 8:15 AM CDT Appointment Department of Radiology, [facility], in [address] [phone] Shobha Greene APRN, C.N.P., M.S.N. [address] [place] [phone] 05/04/2024 3:20 PM CDT Office Visit Department of Oncology in [place], [place] [address] [place] [phone] Shobha Greene APRN, C.N.P., M.S.N. [address] [place] [phone] 05/05/2024 9:00 AM CDT Appointment Department of Radiation Oncology in [place], [place] [address] [place] [phone] Anabel Medeiros M.D., Ph.D. 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 [address] [place] [phone] PCP - General 10/16/22 documented as of this encounter
--- OUTSIDE RECORDS SUMMARY | 2024-03-21 21:21 | XMS_ITS | Encounter Summary ---
Author Organization [facility] Address [address] [place] [address] Care Team Providers Care Broach Operator Name Role Phone Sonia Schneider P.A.-C. Primary Care Provider Reason for Visit * Reason Comments Med Refill Encounter Details Date Type Department Care Team (Late st Contact Info) Description 12/30/2023 Refill Department of Community Internal Medicine in [place], [place] [address] [place] [address] Sonia Schneider P.A.-C. [address] [place] [address] Med Refill Social History Tobacco Use Types Packs/Day Years Used Date Smoking Tobacco: Former Cigarettes 1 32.3 0 10/12/1969 - 2002 Smokeless Tobacco: Never Alcohol Use Standard Drinks/Week Comments No 0 (1 standard drink = 0.6 oz pur e alcohol) [facility] Utilities Answer Date Recorded In [...] How often do you attend chur or mosque services? Never 11/06/2022 Do you belong to any clubs o r organizations such as synagogue groups, unions, fraternal or athletic groups, or [...] have a [facility] place to live 11/17/2023 Education Answer [...] CDT Appointment Department of Laboratory Medicine in [place], [place] [address] [place] [address] Malik Fierro M.B.B.S. [address] [place] [address] 04/07/2024 10:30 AM CDT Clinical Communication Virtual Review in [place], [place] [address] [place] [address] 04/11/2024 9:00 AM CDT Telemedicine Division of Hematology in [place], [place] [address] [place] [phone] Malik Fierro M.B.B.S. [address] [place] [phone] 04/21/2024 1:30 PM CDT Appointment Department of Laboratory Medicine in [address] [phone] Ludmila Glaser APRN, Jacquelyn.N.P., M.S. [address] [place] [phone] 05/02/2024 10:45 AM CDT Clinical Communication Virtual Review in [place], [place] 200 [place] [address] 05/04/2024 8:15 AM CDT Appointment Department of Radiology, [facility], in [place], [place] [address] [place] [phone] Shobha Greene APRN, C.N.P., M.S.N. [address] [place] [phone] 05/04/2024 3:20 PM CDT Office Visit Department of Oncology in [place], [place] [address] [place] [phone] Shobha Greene APRN, C.N.P., M.S.N. [address] [place] [phone] 05/05/2024 9:00 AM CDT Appointment Department of Radiation Oncology in [place], [place] [address] [place] [phone] Anabel Medeiros M.D., Ph.D. 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 300 [facility] [place] [phone] PCP - General 10/16/22 documented as of this encounter
--- OUTSIDE RECORDS SUMMARY | 2024-03-21 21:21 | XMS_ITS | Encounter Summary ---
Author Organization [facility] Address [address] [place] [address] Care Team Providers Care Commissions Analyst Name Role Phone Sonia Schneider P.A.-C. Primary Care Provider Reason for Referral * Outpatient (Routine) - Authorized Specialty Diagnoses / Procedures Referred By Erick handy Referred To Contact Rheumatology Ludmila Glaser APRN, C.NNelia., M.S. [address] [place] [phone] [facility] Referral ID Status Reason Start Date Expiration Date V isits Requested Visits Authorized [id number] Authorized 02/01/2024 08/02/2025 1 1 Reason for Visit * Outpatient (Routine) - Closed Specialty Diagnoses / Procedures Referred By Erick handy Referred To Contact Rheumatology Ludmila Glaser APRN, C.N.P., M.S. [address] [place] [phone] [facility] Referral ID Status Reason Start Date Expiration Date Visits Re quested Visits Authorized [id number] Closed 06/22/2023 06/21/2026 1 1 Encounter Details Date Type Department Care Team (Late st Contact Info) Description 02/01/2024 11:15 AM CDT Telemedicine Division of Rheumatology in [place], [place] [address] [place] [address] Ludmila Glaser, PAO, C.N.P., M.S. [address] [place] [address] Medication Therapy [facility] Not Anticoagulant (Primary Dx); Arthritis Rheumatoid (HCC) Social History Tobacco Use Types Packs/Day Years Used Date Smoking Tobacco: Former Cigarettes 1 32.3 0 10/12/1969 - 2002 Smokeless Tobacco: Never Alcohol Use Standard Drinks/Week Comments No 0 (1 standard drink = 0.6 oz pur e alcohol) [facility] Utilities Answer Date Recorded In the past 12 months has e [employer], gas, oil, or water [employer] threatened to shut off services in your [...] any clubs o r organizations such as restoration groups, unions, fraternal or athletic groups, or [...] Answer Date Recorded PHQ-2 Score 0 11/17/2023 [facility] of Occupat ional Health - Occupational Stress [...] as of this encounter Progress Notes * Ludmila Glaser APRN C.N.P., M.S. - 02/01/2024 11:15 AM CDT SUBJECTIVE CHIEF COMPLAINT / REASON FOR VISIT Kylee Miller is a 69 y.o. female who presents for follow up of rheumatoid arthritis. Consult conducted via real-time audio/video technology by Ludmila Glaser APRN, C.N.PXuan in [facility] to the patient in Patient's Home HISTORY OF PRESENT ILLNESS Mrs. Miller returns for followup of her positive rheumatoid factor and CCP antibody. Her history includes prior diagnosis of rheumatoid arthritis in 1992 by her local primary care provider. At that time she was having hand and feet swelling. She was maintained on methotrexate at thattime for six years. However, in 1999 she developed a lung infection related to a bacteria from her hot tub. At that time they were concerned that the methotrexate was contributing to her pulmonary symptoms, so this was stopped. She was on prednisone at that time as well. She had a period of time where she was not on medications for her rheumatoid arthritis for 12 years. Plaquenil was started again in 2011. Two thousand fifteen methotrexate was added in switch to Arava. 2015 Hand x-rays did show slight progression in cyst or erosion involving the right ulnar styloid and some widening of the DRUJ space since x-rays done in 2012. Her x-rays did show increased erosion on the left 5th toe in 2018. Related to leukopenia we switched her from methotrexate to leflunomide 10 mg daily. She has continued on the Plaquenil. She does follow with Oncology related her history of ovarian cancer. She recently over the last 4-6 weeks has been flaring with migratory joint pain, stiffness and someswelling in the joints Arthritis Presents for follow-up visit. She complains of pain, stiffness and joint swelling. The symptoms have been worsening. Affected locations include the left shoulder, left hip, left wrist and right wrist. Associated symptoms include dry eyes, dry mouth, fatigue, pain at night (hip) and pain while resting. Previous Reports Reviewed:lab reports and office notes The following portions of the patient's history were reviewed and updated as appropriate: allergies, current medications, and problem list. REVIEW OF SYSTEMS Pertinent positives and negatives as documented in the above history of present illness. Constitutional: Positive for fatigue. Musculoskeletal: Positive for arthritis, joint swelling and stiffness. OBJECTIVE PHYSICAL EXAM Physical Exam General: Alert, oriented, appropriate affect, no apparent distress Skin: No rheumatic rashes. Lab: Lab Results Component Value Date/Time SEDRATE 14 01/14/2024 10:35 AM SEDRATE 11 12/16/2022 02:19 PM SEDRATE 6 04/21/2022 08:44 AM SEDRATE 30 (H) 02/07/2019 09:34 AM SEDRATE 35 (H) 10/18/2018 02:29 PM CRP 11.6 (H) 01/14/2024 10:35 AM CRP <3.0 12/16/2022 02:19 PM CRP <3.0 04/21/2022 08:44 AM Lab Results Component Value Date/Time HGB 13.6 01/14/2024 10:35 AM HGB 12.9 10/15/2023 01:56 PM HGB 13.1 07/14/2023 02:02 PM HGB 10.5 (L) 11/24/2018 10:43 AM MCV 91.7 01/14/2024 10:35 AM MCV 94.2 10/15/2023 01:56 PM MCV 92.6 07/14/2023 02:02 PM WBC 4.2 01/14/2024 10:35 AM WBC 3.9 10/15/2023 01:56 PM WBC 4.3 07/14/2023 02:02 PM PLT 219 01/14/2024 10:35 AM PLT 223 10/15/2023 01:56 PM PLT 246 07/14/2023 02:02 PM Lab Results Component Value Date/Time CREATININE 0.64 01/14/2024 10:35 AM CREATININE 0.67 10/15/2023 01:56 PM CREATININE 0.75 07/14/2023 02:02 PM EGFR >90 01/14/2024 10:35 AM EGFR >90 10/15/2023 01:56 PM EGFR 87 07/14/2023 02:02 PM 01/15/2021 05/09/2022 Tender joint count (0-28) 1 0 Swollen joint count (0-28) 5 0 Patient global assessment (0-100) 40 18 Ergonomics Engineer global assessment (0-100) 20 5 ESR (mm/h) 8 -- CRP (mg/L) 3.7 -- Disease Activity Score 28 using ESR ([id number]) 3.2 -- Disease Activity Score 28 using CRP ([id number]) 3.26 -- Clinical Disease Activity Index (CDAI) 12 2.3 Simplified Disease Activity Index (SDAI) 12.37 -- ASSESSMENT / PLAN #1 Arthritis Rheumatoid (HCC) Unfortunately she having some flaring over the last 4-6 weeks will go ahead and do a short prednisone burst so 20 mg a day x 3 days tapering down by 5 mg of daily dose every 3 days until off. Will continue with the 10 mg a day leflunomide with hydroxychloroquine 200 mg twice daily. She is up-to-date with her eye exam she does this yearly. She does have ovarian cancer with recurrence managed in Oncology. Will see her back in follow-up in 6 months time. Will continue with routine lab monitoring every 3 months. If Prednisone taper is not helpful she will let us know. Patient's questions were answered they verbalized understanding and agreed with plan. Refills that were needed were given. documented in this encounter Plan of Treatment Upcoming Encounters Date Type Department Care Team (Late st Contact Info) Description 04/05/2024 10:30 AM CDT Appointment Department of Laboratory Medicine in [place], [place] 300 [place] [address] Malik Fierro M.B.B.S. [address] [place] [address] 04/07/2024 10:30 AM CDT Clinical Communication Virtual Review in [place], [place] 200 [place] [address] 04/11/2024 9:00 AM CDT Telemedicine Division of Hematology in [place], [place] [address] [place] [phone] Malik Fierro M.B.B.S. [address] [place] [phone] 04/21/2024 1:30 PM CDT Appointment Department of Laboratory Medicine in [address] [phone] Ludmila Glaser APRN, C.N.P., M.S. [address] [place] [phone] 05/02/2024 10:45 AM CDT Clinical Communication Virtual Review in [place], [place] 200 [place] [address] 05/04/2024 8:15 AM CDT Appointment Department of Radiology, [facility], in [address] [phone] Shobha Greene APRN, C.N.P., M.S.N. [address] [place] [phone] 05/04/2024 3:20 PM CDT Office Visit Department of Oncology in [address] [phone] Shobha Greene APRN, C.N.P., M.S.N. [address] [place] [phone] 05/05/2024 9:00 AM CDT Appointment Department of Radiation Oncology in [address] [place] [address] Anabel Medeiros M.D., Ph.D. 200 [place] [address] Scheduled Orders Name Type Priority Associated Diagnoses Orde r Schedule CBC with Differential, Blood Lab Routine Arthritis Rheumatoid (HCC) Expected: 08/02/2024 (Approximate), Expires: 01/31/2025 Sedimentation Rate Lab Routine Arthritis Rheumatoid (HCC) Expected: 08/02/2024 (Approximate), Expires: 01/31/2025 CRP (C-Reactive Protein) Lab Routine Arthritis Rheumatoid (HCC) Expected: 08/02/2024 (Approximate), Expires: 01/31/2025 Creatinine with Estimated GFR Lab Routine Arthritis Rheumatoid (HCC) Expected: 08/02/2024 (Approximate), Expires: 01/31/2025 AST (Aspartate Aminotransferase) Lab Routine Arthritis Rheumatoid (HCC) Expected: 08/02/2024 (Approximate), Expires: 01/31/2025 Scheduled Referrals Name Type Priority Associated Diagnoses Order Schedule Rheumatology office visit (clinic) Outpatient Referral Routine Expected: 08/02/2024, Expires: 05/02/2025 documented as of this encounter Visit Diagnoses Diagnosis Medication Therapy [facility] Not Anticoagulant- Primary Arthritis Rheumatoid (HCC) documented in this encounter Additional Health Concerns Assessment Noted Time PHQ-9 Depression Total Score: 4 09/11/20 16 9: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 [address] [place] [phone] PCP - General 10/16/22 documented as of this encounter
--- OUTSIDE RECORDS SUMMARY | 2024-03-21 21:21 | XMS_ITS | Encounter Summary ---
Author Organization [facility] Address [address] [place] [address] Care Team Providers Care Dba Name Role Phone Sonia Schneider P.A.-C. Primary Care Provider Reason for Visit * Reason Comments Med Refill Encounter Details Date Type Department Care Team (Late st Contact Info) Description 12/13/2023 Refill Division of Rheumatology in [place], [place] [address] [place] [phone] Ludmila Glaser, PAO, C.N.P., M.S. [address] [place] [phone] Med Refill Social History Tobacco Use Types Packs/Day Years Used Date Smoking Tobacco: Former Cigarettes 1 32.3 0 10/12/1969 - 2002 Smokeless Tobacco: Never Alcohol Use Standard Drinks/Week Comments No 0 (1 standard drink = 0.6 oz pur e alcohol) [facility] Utilities Answer Date Recorded In the [...] How often do you attend chur or mu-ism services? Never 11/06/2022 Do you belong to any clubs o r organizations such as pentecostal groups, unions, fraternal or athletic groups, or [...] Answer Date Recorded PHQ-2 Score 0 11/17/2023 [facility] of Occupat ional Health - [...] your living situation today? I have a [facility] place to live 11/17/2023 Education Answer [...] encounter Miscellaneous Notes * Telephone Encounter - Kavita Hernandez R.N. - 12/14/2023 2:41 PM REST ROOM MAID Prescription renewal request for leflunomide (Arava) received from pharmacy. HISTORY OF PRESENT ILLNESS Last Rheum / VASC visit: 06/22/23 with Ludmila Glaser APRN, CNP Future office visit: 01/31/23 Last monitoring labs: 10/15/23: results within parameters Prescription request matches current plan of care. Prescription request matches a current prescription in the Medication List. Exclusion criteria: None (If an alert appeared, it was determined to be an approved exception) ASSESSMENT/PLAN Prescription request renewed per nursing protocol. ROOM MAID documented in this encounter Plan of Treatment Upcoming Encounters Date Type Department Care Team (Late st Contact Info) Description 04/05/2024 10:30 AM CDT Appointment Department of Laboratory Medicine in [place], [place] 300 [place] [address] Malik Fierro M.B.B.S. [address] [place] [phone] 04/07/2024 10:30 AM CDT Clinical Communication Virtual Review in [place], [place] 200 [place] [address] 04/11/2024 9:00 AM CDT Telemedicine Division of Hematology in [place], [place] [address] [place] [phone] Malik Fierro M.B.B.S. [address] [place] [phone] 04/21/2024 1:30 PM CDT Appointment Department of Laboratory Medicine in [address] [phone] Ludmila Glaser APRN, C.N.P., M.S. [address] [place] [phone] 05/02/2024 10:45 AM CDT Clinical Communication Virtual Review in [address] [phone] 05/04/2024 8:15 AM CDT Appointment Department of Radiology, [facility], in [place], [place] [address] [place] [phone] Shobha Greene APRN, C.N.P., M.S.N. [address] [place] [phone] 05/04/2024 3:20 PM CDT Office Visit Department of Oncology in [place], [place] [address] [place] [phone] Shobha Greene APRN, C.N.P., M.S.N. [address] [place] [phone] 05/05/2024 9:00 AM CDT Appointment Department of Radiation Oncology in [place], [place] [address] [place] [phone] Anabel Medeiros M.D., Ph.D. [address] [place] [phone] documented as of this encounter Visit Diagnoses Diagnosis Arthritis Rheumatoid (HCC) documented in this encounter Additional Health Concerns Assessment Noted Time PHQ-9 Depression Total Score: 4 09/11/20 16 9:23 AM REST ROOM MAID documented as of this encounter Care Teams Dba Relationship Specialty Start Date End Date oSnia Schneider P.A.-C. [address] [place] [phone] PCP - General 10/16/22 documented as of this encounter
--- OUTSIDE RECORDS SUMMARY | 2024-03-21 21:21 | XMS_ITS | Encounter Summary ---
Author Organization [facility] Address [address] [place] [address] Care Team Providers Care Vertical Punch Operator Name Role Phone Sonia Schneider P.A.-C. Primary Care Provider Encounter Details Date Type Department Care Team (Latest Contact Info) Description 01/25/2024 11:45 AM CDT Clinical Communication Virtual Review in [place], [place] [address] [place] [address] Social History Tobacco Use Types Packs/Day Years Used Date Smoking Tobacco: Former Cigarettes 1 32.3 0 10/12/1969 - 2002 Smokeless Tobacco: Never Alcohol Use Standard Drinks/Week Comments No 0 (1 standard drink = 0.6 oz pur e alcohol) [facility] Utilities Answer Date Recorded In the past 12 months has [facility] [employer], gas, oil, or water [employer] threatened to shut off services in your [...] How often do you attend chur or scientology services? Never 11/06/2022 Do you belong to any clubs o r organizations such as voodoo groups, unions, fraternal or athletic groups, or [...] Answer Date Recorded PHQ-2 Score 0 11/17/2023 [facility] - Occupational Stress Questionnaire Answer Date [...] your living situation today? I have a [facility] place to live 01/26/2024 [...] CDT Appointment Department of Laboratory Medicine in [place], [place] [address] [place] [phone] Malik Fierro M.B.B.S. [address] [place] [phone] 04/07/2024 10:30 AM CDT Clinical Communication Virtual Review in [place], [place] 200 [place] [address] 04/11/2024 9:00 AM CDT Telemedicine Division of Hematology in [place], [place] [address] [place] [phone] Malik Fierro M.B.B.S. [address] [place] [phone] 04/21/2024 1:30 PM CDT Appointment Department of Laboratory Medicine in [place], [place] 300 [place] [address] Ludmila Glaser APRN, C.N.P., M.S. [address] [place] [phone] 05/02/2024 10:45 AM CDT Clinical Communication Virtual Review in [place], [place] 200 [place] [address] 05/04/2024 8:15 AM CDT Appointment Department of Radiology, [facility], in [place], [place] [address] [place] [phone] Shobha Greene APRN, C.N.Sebastian., M.S.N. [address] [place] [phone] 05/04/2024 3:20 PM CDT Office Visit Department of Oncology in [place], [place] [address] [place] [phone] Shobha Greene APRN, C.N.P., M.S.N. [address] [place] [phone] 05/05/2024 9:00 AM CDT Appointment Department of Radiation Oncology in [place], [place] [address] [place] [phone] Anabel Medeiros M.D., Ph.D. 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 [address] [place], [place] [address]VI [place] [phone] PCP - General 10/16/22 documented as of this encounter
--- OUTSIDE RECORDS SUMMARY | 2024-03-21 21:21 | XMS_ITS | Encounter Summary ---
Author Organization [facility] Address [address] [place] [address] Care Team Providers Care Seismic Interpreter Name Role Phone Sonia Schneider P.A.-C. 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 [address] [place] [phone] [facility] Referral ID Status Reason Start Date Expiration Date Visits Re quested Visits Authorized [id number] Closed 10/30/2023 10/29/2024 1 1 Encounter Details Date Type Department Care Team (Latest Contact Info) Description 01/29/2024 1:52 PM CDT - 01/29/2024 11:59 PM CDT Hospital Encounter Department of Radiology, [facility], in [place], [place] [address] [place] [address] Shobha Greene APRN, C.NAleida, M.S.N. 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 Never 11/06/2022 Do you belong to any clubs o r organizations such as congregational groups, unions, fraternal or athletic groups, or [...] Answer Date Recorded PHQ-2 Score 0 11/17/2023 [facility] of Occupat ional Health - Occupational Stress [...] your living situation today? I have a [facility] place to live 01/26/2024 Education [...] (six) hours as needed for pain. 01/23/2023 Hermelinda Urrutiatherm (BACID) 1 billion cell- 250 mg per [...] CDT Appointment Department of Laboratory Medicine in [place], [place] [address] [place] [phone] Malik Fierro M.B.B.S. [address] [place] [phone] 04/07/2024 10:30 AM CDT Clinical Communication Virtual Review in [place], [place] [address] [place] [phone] 04/11/2024 9:00 AM CDT Telemedicine Division of Hematology in [place], [place] [address] [place] [phone] Malik Fierro M.B.B.S. [address] [place] [phone] 04/21/2024 1:30 PM CDT Appointment Department of Laboratory Medicine in [place], [place] [address] [place] [phone] Ludmila Glaser APRN, C.N.P., M.S. [address] [place] [phone] 05/02/2024 10:45 AM CDT Clinical Communication Virtual Review in [place], [place] [address] [place] [phone] 05/04/2024 8:15 AM CDT Appointment Department of Radiology, [facility], in [place], [place] [address] [place] [phone] Shobha Greene APRN, C.N.P., M.S.N. [address] [place] [phone] 05/04/2024 3:20 PM CDT Office Visit Department of Oncology in [place], [place] [address] [place] [phone] Shobha Greene APRN, C.N.P., M.S.N. [address] [place] [phone] 05/05/2024 9:00 AM CDT Appointment Department of Radiation Oncology in [place], [place] [address] [place] [phone] Anabel Medeiros M.D., Ph.D. 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 IM G CT PROCEDURES * CT Abdomen Pelvis with IV Contrast [...] or metastatic disease in abdomen and pelvis. Jacquelyn Hsieh APRN.N.P., M.S.N. 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) documented in this encounter Administered Medications Inactive Administered Medications - up to 3 most recent administrations Medication Order MAR Action Action Date Dose Rate Site iohexol (OMNIPAQUE) dilution solution 9 mg iodine/mL 495-9,000 mg, oral, Once in imaging, contrast, Starting on Thu01/29/24 at 1401, For 1 dose, Imaging Protocol Orders, Dose per Radiant Medication Guidelines Dosing Instructions/Compounding Instructions: Adults = 9,000 mg = 30 mL of 300 mg iodine/mL in 1,000 mL water; Peds > 18 kg = 4,500 mg = 15 mL of 300 mg iodine/mL in 500 mL apple juice or water; Peds 12-18 kg = 1,980-2,880 mg = 15 mL of 300 mg iodine/mL in 500 mL apple juice or water; Peds 8-12 kg = 1,350-1,935 mg = 7.5 mL of 300 mg iodine/mL in 250 mL apple juice or water; Peds 1-8 kg = 495-720 mg = 7.5 mL of 300 mg iodine/mL in 250 mL apple juice or water. Multiply the number of mLs consumed by 9 to calculate the total mg for documentation. Given 01/29/2024 2:10 PM CDT 9,000 mg iohexoL 300 mg iodine/mL solution 1-200 mL (OMNIPAQUE) 1-200 mL, intravenous, Once in imaging, contrast, Starting on Thu01/29/24 at 1401, For 1 dose, Imaging Protocol Orders, Dose per Radiant Medication Guidelines Given 01/29/2024 2:36 PM CDT 140 mL sodium chloride (PF) 0.9 % injection 1-100 mL 1-100 mL, intravenous, Once, On Thu01/29/24 at 1430, For 1 dose, Imaging Protocol Orders, Dose per Radiant Medication Guidelines Given 01/29/2024 2:36 PM CDT 50 mL documented in this encounter Additional Health Concerns Assessment Noted Time PHQ-9 Depression Total Score: 4 09/11/20 16 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 [address] [facility] [phone] PCP - General 10/16/22 documented as of this encounter
--- OUTSIDE RECORDS SUMMARY | 2024-03-21 21:21 | XMS_ITS | Encounter Summary ---
Author Organization [facility] Address [address] [place] [address] Care Team Providers Care Pizzamaker Name Role Phone Sonia Schneider P.A.-C. Primary Care Provider Reason for Visit * Reason Onset Date Comments Back Pain 01/07/2024 Encounter Details Date Type Department Care Team (Late st Contact Info) Description 01/07/2024 Nurse Triage Department of Community Internal Medicine in [place] [address] [place] [address] Paige Ruiz, R.N. Back Pain Social History Tobacco Use Types Packs/Day Years Used Date Smoking Tobacco: Former Cigarettes 1 32.3 0 10/12/1969 - 2002 Smokeless Tobacco: Never Alcohol Use Standard Drinks/Week Comments No 0 (1 standard drink = 0.6 oz pur e alcohol) [facility] Utilities Answer Date Recorded In the past [...] How often do you attend chur or orthodoxy services? Never 11/06/2022 Do you belong to any clubs o r organizations such as spiritism groups, unions, fraternal or athletic groups, or [...] Answer Date Recorded PHQ-2 Score 0 11/17/2023 [facility] of Occupat ional Health - [...] your living situation today? I have a [facility] place to live 11/17/2023 Education Answer [...] encounter Miscellaneous Notes * Telephone Encounter - Paige Ruiz, RXuanN. - 01/07/2024 8:37 AM CDT Chief Complaint / Reason for Call Patient is a 68 y.o. female calling regarding Back Pain. Assessment Concern: Low back ache for about 10 days, pressure in the bladder area but no pain or burning with urination, no fevers, she did not think UTI as she had no other symptoms but she does tend to get UTI's and her PCP has her drop off urine, she is now noting some bladder pressure feeling which she does get when she has UTI so did a at home AZO strip Present for: 10 days Home cares tried: did test with AZO strip and had no nitrates but there was purple for leukocytes Calling to request: order for UTI The recommended disposition is See a health care provider within 24 hours. Patient was scheduled for a video visit via [employer]. Educated that the provider will text patient when they are available for their appointment between the hours of 8 am-5 pm. Reason for Disposition High-risk adult (e.g., history of cancer, HIV, or IV drug use) Protocols used: Back Jnks-[id number]-MB Care Advice Patient/Caregiver understands and will follow care advice?: Yes, able to teach back PAIN MEDICINES: * For pain relief, you can take either acetaminophen, ibuprofen, or naproxen. * They are iqay-wgl-gkegmrh (OTC) pain drugs. You can buy them at the drugstore. * ACETAMINOPHEN - REGULAR STRENGTH TYLENOL: Take 650 mg (two 325 mg pills) by mouth every 4 to 6 hours as needed. Each Regular Strength Tylenol pill has 325 mg of acetaminophen. The most you should take is 10 pills a day (3,250 mg total). Note: In Eddie, the maximum is 12 pills a day (3,900 mg total). * ACETAMINOPHEN - EXTRA STRENGTH TYLENOL: Take 1,000 mg (two 500 mg pills) every 6 to 8 hours as needed. Each Extra Strength Tylenol pill has 500 mg of acetaminophen. The most you should take is 6 pills a day (3,000 mg total). Note: In Eddie, the maximum is 8 pills a day (4,000 mg total). * IBUPROFEN (E.G., MOTRIN, ADVIL): Take 400 mg (two 200 mg pills) by mouth every 6 hours. The most you should take is 6 pills a day (1,200 mg total). * NAPROXEN (E.G., ALEVE): Take 220 mg (one 220 mg pill) by mouth every 8 to 12 hours as needed. Youmay take 440 mg (two 220 mg pills) for your first dose. The most you should take is 3 pills a day (660 mg total). Note: In Eddie, the maximum is 2 pills a day (one every 12 hours; 440 mg total). * Use the lowest amount of medicine that makes your pain better. CALL BACK IF: * Loss of control of urine or bowels (incontinence) * Fever occurs * You become worse documented in this encounter Plan of Treatment Upcoming Encounters Date Type Department Care Team (Late st Contact Info) Description 04/05/2024 10:30 AM CDT Appointment Department of Laboratory Medicine in [place], [place] [address] [place] [address] Malik Fierro M.B.B.S. [address] [place] [phone] 04/07/2024 10:30 AM CDT Clinical Communication Virtual Review in [address] [phone] 04/11/2024 9:00 AM CDT Telemedicine Division of Hematology in [address] [phone] Malik Fierro M.B.B.S. [address] [place] [phone] 04/21/2024 1:30 PM CDT Appointment Department of Laboratory Medicine in [address] [phone] Ludmila Glaser APRN, C.N.P., M.S. [address] [place] [phone] 05/02/2024 10:45 AM CDT Clinical Communication Virtual Review in [place], [place] 200 [place] [address] 05/04/2024 8:15 AM CDT Appointment Department of Radiology, [facility], in [place], [place] [address] [place] [phone] Shobha Greene APRN, C.N.P., M.S.N. [address] [place] [phone] 05/04/2024 3:20 PM CDT Office Visit Department of Oncology in [place], [place] [address] [place] [address] Shobha Greene APRN, C.N.P., M.S.N. [address] [place] [phone] 05/05/2024 9:00 AM CDT Appointment Department of Radiation Oncology in [place], [place] [address] [place] [phone] Anabel Medeiros M.D., Ph.D. 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 [address] [place] [address] PCP - General 10/16/22 documented as of this encounter
== END 2024-03-21 21:31 | disposition home or self-care (01) ==
LOC: ED 21:17
PROVIDERS: Emergency Provider Family Medicine; PCP Internal Medicine
DX: M62.838 Other muscle spasm (principal)
CPT/HCPCS: 99283; 99284